=== PATIENT | female | born 1985 | race African-American/Black ===

== ENCOUNTER 2022-08-04 20:50 | Inpatient (IN) ==
--- NOTE | 2022-08-04 21:08 | Emergency Department Note ---
Impression & Plan Sickle cell pain crisis, Anemia ED Provider Note NAME: JEFF HODGE AGE: 37 SEX: F : 1985 ARRIVES VIA: Walk-In INFORMANT: Patient, ED PROVIDER(S): Yifan Haas MD CHIEF COMPLAINT: Chest pain, hemoptysis MEDICAL DECISION MAKING: Patient presents due to concern for chest pain and hemoptysis in the setting of known sickle cell disease. Patient did have blood work completed and IV was established patient was ordered IV Dilaudid and Benadryl. CT of the chest without contrast was ordered as the patient does have contrast allergy. CT of the chest shows that the patient does have mild postinflammaotry/post infectious tree in bud changes but no consolidation per stat rad. The patient is afebrile here. The patient did receive IV fluids. EKG with no obvious concerning findings. The patient's blood work shows a normal white count hemoglobin 11.4 mild anemia and normal platelet count. Kidney function with prerenal azotemia mild hyponatremia 135 other LFTs are unremarkable. Patient was reassessed and was still having pain so she was ordered an additional 1.5 mg of Dilaudid and IV Toradol 10 mg. Patient reportedly does not tolerate NSAIDs well. This was not given. Upon subsequent reassessment the patient was still having pain and states that she typically gets 3 doses for her sickle cell pain crises. Patient was ordered 2 mg IV Dilaudid. The patient does have reticulocyte count. The patient's kidney function is unremarkable. Troponin not elevated. Believe acute chest syndrome to be less likely as the patient is not hypoxic febrile and mildly patient does have inflammatory changes seen on her CT there is no evidence of obvious pneumonia. Given the patient's pain medication needs I did discuss admission versus close outpatient follow-up and treatment. Patient did not have improvement in the pain and given that the patient has required multiple rounds of pain medication I did speak with the on-call hospitalist service and patient was admitted by Dr. Becerril Prior /Outside records reviewed: None Differential diagnosis: Cardiac ischemia, aortic dissection, pulmonary embolism, pneumothorax, pneumonia, pericarditis, myocarditis, esophageal rupture, GERD, cholecystitis, pancreatitis, musculoskeletal, as well as other pathologies. Diagnostics, as interpreted by me: ECG: Sinus tachycardia, rate of 110, normal intervals normal axis no ST elevations or T WI. No significant change for comparison July 31, 2022 Cardiac monitoring: An order was placed for continuous cardiac monitoring. The monitor shows a rate of 105 with tachycardic and regular rhythm. Patient was placed on pulse oximetry Medical decision rules: None Imaging studies: See below HPI: Patient presents due to concern for chest pain with associated cough and hemoptysis. Patient states that she does have a prior history of acute chest syndrome. Patient has felt warm but is not taken her temperature at home. Patient is a non-smoker. The patient is hydroxyurea and folic acid does take oxycodone but has not had improvement in symptoms. The patient does complain of chest pain as well as overall body aches and bony pain. She does state this is consistent with sickle cell pain crises. The patient is concerned of the possibility of acute chest. Patient denies any nausea vomiting or diarrhea. No falls or trauma. The patient is currently visiting from the [facility]. PAST MEDICAL HISTORY: See Below PAST SURGICAL HISTORY: See Below SOCIAL HISTORY: See Below HOME MEDICATIONS: See Below ALLERGIES: See Below VITALS: See Below PHYSICAL EXAMINATION: GENERAL: NAD, wearing a mask, non-toxic. EYE EXAM: Normal conjunctiva. PERRL, no anisocoria and EOM's grossly intact w/o pain. NECK: Supple, no nuchal rigidity, no adenopathy, non-tender. No signs of meningismus. FROM of the neck with good chin to chest and neck extension. No stridor. LUNGS: Clear to auscultation. Normal chest wall mechanics. HEART: Tachycardic and regular, no MRG. ABDOMEN: Abdomen soft, non-tender, normo-active bowel sounds, no masses, no rebound or guarding. BACK: No CVA TTP. SKIN: No rashes and no bruising. UPPER EXTREMITIES: Upper extremities are grossly normal. LOWER EXTREMITIES: Grossly normal, no edema. Negative Homans' sign bilaterally. NEURO EXAM: A&O x3, cranial nerves II-XII grossly intact, normal speech, moves all 4 extremities. 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 [employer] Required: No Beliefs That Will Affect Care: None Current Living Situation: Significant Other Current Living Situation Comment: Apartment with fiance and 2 kids Feels Safe at Home: Yes Safety Concerns: Feels Safe At This Time Assistive Devices: None Allergies Allergies Allergy/AdvReac Type Severity Reaction Status Date / Time gadoversetamide Allergy Severe Anaphylaxis Verified 08/05/22 02:25 Iodinated Contrast Media Allergy Severe Anaphylaxis Verified 08/05/22 02:25 shellfish derived Allergy Severe Anaphylaxis Verified 08/05/22 02:22 ketorolac [From Toradol] Allergy Hives Verified 08/05/22 02:22 NSAIDS (Non-Steroidal Allergy Hives Verified 08/05/22 02:22 Anti-Inflamma Home Meds Home Medications Medication Instructions Recorded Confirmed Hormone Injections 1 dose INJ .[id number] 08/05/22 08/05/22 bictegravir 50 mg-emtricitabine 1 tab PO DAILY 08/05/22 08/05/22 200 mg-tenofovir alafenam 25 mg tablet (Biktarvy) folic acid 1 mg tablet 5 mg PO DAILY 08/05/22 08/05/22 hydroxyurea 500 mg capsule 500 mg PO BID 08/05/22 08/05/22 oxycodone 20 mg tablet,crush 20 mg PO Q12H PRN Pain 08/05/22 08/05/22 resistant,extended release 12 hr (OxyContin) oxycodone 5 mg tablet 5 mg PO Q4H PRN Pain 08/05/22 08/05/22 spironolactone 100 mg tablet 100 mg PO BID 08/05/22 08/05/22 Results & Data (ED) Vital Signs Vital Signs - 24 hr 08/04/22 20:52 08/04/22 21:08 08/04/22 21:15 Temperature 36.6 C Temperature Source Temporal Artery Scan Pulse Rate 120 H 113 H 112 H Pulse Rhythm Respiratory Rate 16 23 19 Blood Pressure 151/98 H Blood Pressure Mean 115 Pulse Oximetry 98 99 99 Oxygen Delivery Method Room Air Room Air Room Air Sepsis Recent Fever Within 48 Hours No Sepsis New/Unexplained Change in Mental Status No Sepsis Action Taken by Nursing No Action Required 08/04/22 21:30 08/04/22 21:15 08/04/22 21:15 Temperature Temperature Source Pulse Rate 110 H 112 H Pulse Rhythm Regular Respiratory Rate 18 20 Blood Pressure Blood Pressure Mean Pulse Oximetry 99 99 99 Oxygen Delivery Method Room Air Room Air Room Air Sepsis Recent Fever Within 48 Hours Sepsis New/Unexplained Change in Mental Status Sepsis Action Taken by Nursing 08/04/22 21:46 08/04/22 22:00 08/04/22 22:15 Temperature Temperature Source Pulse Rate 113 H 112 H 110 H Pulse Rhythm Respiratory Rate 20 18 20 Blood Pressure Blood Pressure Mean Pulse Oximetry Oxygen Delivery Method Sepsis Recent Fever Within 48 Hours Sepsis New/Unexplained Change in Mental Status Sepsis Action Taken by Nursing 08/04/22 21:35 08/04/22 22:30 08/04/22 23:00 Temperature Temperature Source Pulse Rate 109 H 117 H 106 H Pulse Rhythm Respiratory Rate 17 Blood Pressure Blood Pressure Mean Pulse Oximetry Oxygen Delivery Method Sepsis Recent Fever Within 48 Hours Sepsis New/Unexplained Change in Mental Status Sepsis Action Taken by Nursing 08/04/22 23:30 08/04/22 23:41 08/05/22 00:00 Temperature Temperature Source Pulse Rate 107 H 112 H 115 H Pulse Rhythm Respiratory Rate 19 18 21 Blood Pressure 171/105 H Blood Pressure Mean 127 Pulse Oximetry 96 Oxygen Delivery Method Room Air Sepsis Recent Fever Within 48 Hours Sepsis New/Unexplained Change in Mental Status Sepsis Action Taken by Nursing 08/05/22 00:30 08/05/22 01:12 08/05/22 01:30 Temperature Temperature Source Pulse Rate 120 H 122 H 117 H Pulse Rhythm Respiratory Rate 15 22 22 Blood Pressure Blood Pressure Mean Pulse Oximetry 95 97 Oxygen Delivery Method Room Air Room Air Sepsis Recent Fever Within 48 Hours Sepsis New/Unexplained Change in Mental Status Sepsis Action Taken by [facility] Medications Current Medication List: was personally reviewed by me Laboratory Data Attestation: I reviewed the patient's lab results. 08/04/22 22:35 08/04/22 22:35 Lab Results 08/04/22 08/04/22 08/04/22 Range/Units 22:35 22:35 22:35 WBC 5.49 (4.8-10.8) K/ul RBC 3.75 L (4.20-5.40) M/uL Hgb 11.4 L (12.0-16.0) g/dl Hct 34.5 L (37.0-47.0) % MCV 92.0 (80.0-100.0) fL MCH 30.4 (25.0-34.0) pg MCHC 33.0 (32.0-36.0) g/dL RDW Std Deviation 62.0 H (36.4-46.3) fL RDW Coeff of López 18.4 H (11.5-14.5) % Plt Count 285 (130-400) K/uL MPV 8.9 L (9.4-12.4) fL Immature Gran % (Auto) 6.7 % Neut % (Auto) 58.6 % Lymph % (Auto) 30.1 % Schuyler % (Auto) 3.5 % Eos % (Auto) 0.7 % Baso % (Auto) 0.4 % Reticulocyte % (Auto) 2.3 H (0.5-2.0) % Neut # (Auto) 3.22 (1.40-6.50) K/uL Lymph # (Auto) 1.65 (1.2-3.4) K/uL Schuyler # (Auto) 0.19 (0.11-0.59) K/uL Eos # (Auto) 0.04 (0-0.50) K/uL Baso # (Auto) 0.02 (0-0.2) K/uL Reticulocyte # 0.09 (0.02-0.10) 10^6/uL Immature Gran # (Auto) 0.37 H (0.01-0.20) K/uL PT 9.9 (9.0-12.0) Seconds INR 0.9 (0.9-1.1) APTT 28.6 (21.0-31.0) Seconds PTT Ratio 1.0 Sodium 135 L (136-145) mmol/L Potassium 4.7 (3.5-5.1) mmol/L Chloride 106 (98-107) mmol/L Carbon Dioxide 25 (21-32) mmol/L Anion Gap 4 (3-11) BUN 21 (6-23) mg/dl Creatinine 0.84 (0.6-1.2) mg/dl Est Cr Clr Drug Dosing 138.6 ml/min Est GFR ( Amer) 102.9 ml/min Est GFR (Non-Af Amer) 88.8 ml/min BUN/Creatinine Ratio 25.0 H (10-20) Glucose 144 H (70-99(Fasting)) mg/dl Estimat Average Glucose mg/dl Hemoglobin A1c (4.5-5.6) % Calcium 9.7 (8.5-10.1) mg/dl Magnesium 1.8 (1.7-2.4) mg/dl Iron (35-150) mcg/dl Transferrin (200-360) mg/dl Ferritin (8-388) ng/ml Total Bilirubin 0.3 (0.2-1.0) mg/dl AST 20 (13-39) U/L ALT 17 (7-52) U/L Alkaline Phosphatase 90 (34-104) U/L Troponin I High Sens 4.2 (0-14) pg/ml Total Protein 7.8 (6.0-8.3) gm/dl Albumin 4.2 (3.4-5.0) gm/dl Globulin 3.6 (2.5-4.0) gm/dl Albumin/Globulin Ratio 1.2 (0.9-2) Vitamin B12 (180-914) pg/ml Folate (>5.38) ng/ml SARS-CoV-2, RNA, NAAT (NEGATIVE) 08/04/22 08/04/22 08/04/22 Range/Units 22:35 22:35 22:49 WBC (4.8-10.8) K/ul RBC (4.20-5.40) M/uL Hgb (12.0-16.0) g/dl Hct (37.0-47.0) % MCV (80.0-100.0) fL MCH (25.0-34.0) pg MCHC (32.0-36.0) g/dL RDW Std Deviation (36.4-46.3) fL RDW Coeff of López (11.5-14.5) % Plt Count (130-400) K/uL MPV (9.4-12.4) fL Immature Gran % (Auto) % Neut % (Auto) % Lymph % (Auto) % Schuyler % (Auto) % Eos % (Auto) % Baso % (Auto) % Reticulocyte % (Auto) (0.5-2.0) % Neut # (Auto) (1.40-6.50) K/uL Lymph # (Auto) (1.2-3.4) K/uL Schuyler # (Auto) (0.11-0.59) K/uL Eos # (Auto) (0-0.50) K/uL Baso # (Auto) (0-0.2) K/uL Reticulocyte # (0.02-0.10) 10^6/uL Immature Gran # (Auto) (0.01-0.20) K/uL PT (9.0-12.0) Seconds INR (0.9-1.1) APTT (21.0-31.0) Seconds PTT Ratio Sodium (136-145) mmol/L Potassium (3.5-5.1) mmol/L Chloride (98-107) mmol/L Carbon Dioxide (21-32) mmol/L Anion Gap (3-11) BUN (6-23) mg/dl Creatinine (0.6-1.2) mg/dl Est Cr Clr Drug Dosing ml/min Est GFR ( Amer) ml/min Est GFR (Non-Af Amer) ml/min BUN/Creatinine Ratio (10-20) Glucose (70-99(Fasting)) mg/dl Estimat Average Glucose 100 mg/dl Hemoglobin A1c 5.1 (4.5-5.6) % Calcium (8.5-10.1) mg/dl Magnesium (1.7-2.4) mg/dl Iron 48 (35-150) mcg/dl Transferrin 238 (200-360) mg/dl Ferritin 125.9 (8-388) ng/ml Total Bilirubin (0.2-1.0) mg/dl AST (13-39) U/L ALT (7-52) U/L Alkaline Phosphatase (34-104) U/L Troponin I High Sens (0-14) pg/ml Total Protein (6.0-8.3) gm/dl Albumin (3.4-5.0) gm/dl Globulin (2.5-4.0) gm/dl Albumin/Globulin Ratio (0.9-2) Vitamin B12 457 (180-914) pg/ml Folate 11.55 (>5.38) ng/ml SARS-CoV-2, RNA, NAAT (NEGATIVE) 08/05/22 Range/Units 00:47 WBC (4.8-10.8) K/ul RBC (4.20-5.40) M/uL Hgb (12.0-16.0) g/dl Hct (37.0-47.0) % MCV (80.0-100.0) fL MCH (25.0-34.0) pg MCHC (32.0-36.0) g/dL RDW Std Deviation (36.4-46.3) fL RDW Coeff of López (11.5-14.5) % Plt Count (130-400) K/uL MPV (9.4-12.4) fL Immature Gran % (Auto) % Neut % (Auto) % Lymph % (Auto) % Schuyler % (Auto) % Eos % (Auto) % Baso % (Auto) % Reticulocyte % (Auto) (0.5-2.0) % Neut # (Auto) (1.40-6.50) K/uL Lymph # (Auto) (1.2-3.4) K/uL Schuyler # (Auto) (0.11-0.59) K/uL Eos # (Auto) (0-0.50) K/uL Baso # (Auto) (0-0.2) K/uL Reticulocyte # (0.02-0.10) 10^6/uL Immature Gran # (Auto) (0.01-0.20) K/uL PT (9.0-12.0) Seconds INR (0.9-1.1) APTT (21.0-31.0) Seconds PTT Ratio Sodium (136-145) mmol/L Potassium (3.5-5.1) mmol/L Chloride (98-107) mmol/L Carbon Dioxide (21-32) mmol/L Anion Gap (3-11) BUN (6-23) mg/dl Creatinine (0.6-1.2) mg/dl Est Cr Clr Drug Dosing ml/min Est GFR ( Amer) ml/min Est GFR (Non-Af Amer) ml/min BUN/Creatinine Ratio (10-20) Glucose (70-99(Fasting)) mg/dl Estimat Average Glucose mg/dl Hemoglobin A1c (4.5-5.6) % Calcium (8.5-10.1) mg/dl Magnesium (1.7-2.4) mg/dl Iron (35-150) mcg/dl Transferrin (200-360) mg/dl Ferritin (8-388) ng/ml Total Bilirubin (0.2-1.0) mg/dl AST (13-39) U/L ALT (7-52) U/L Alkaline Phosphatase (34-104) U/L Troponin I High Sens (0-14) pg/ml Total Protein (6.0-8.3) gm/dl Albumin (3.4-5.0) gm/dl Globulin (2.5-4.0) gm/dl Albumin/Globulin Ratio (0.9-2) Vitamin B12 (180-914) pg/ml Folate (>5.38) ng/ml SARS-CoV-2, RNA, NAAT NEGATIVE (NEGATIVE) Administered Medications Benzonatate (Benzonatate 100 Mg Capsule) 100 mg PO TID PRN PRN Reason: Cough Stop: 09/04/22 02:02 Last Admin: 08/05/22 03:25 Dose: 100 mg Documented By: ANNIKA Dicyclomine HCl (Dicyclomine Hcl 10 Mg Cap) 10 mg PO AC [facility] Stop: 09/04/22 11:29 Last Admin: 08/05/22 16:53 Dose: 10 mg Documented By: Admin: 08/05/22 12:51 Dose: 10 mg Documented By: PATRICK Diphenhydramine HCl (Diphenhydramine 50 Mg/Ml Vial) 50 mg IV Q6H PRN PRN Reason: Itching Stop: 09/04/22 03:34 Last Admin: 08/05/22 14:57 Dose: 50 mg Documented By: Admin: 08/05/22 09:13 Dose: 50 mg Documented By: Admin: 08/05/22 04:07 Dose: 50 mg Documented By: ANNIKA Folic Acid (Folic Acid 1 Mg Tab) 5 mg PO DAILY [facility] Stop: 09/04/22 08:59 Last Admin: 08/05/22 07:59 Dose: 5 mg Documented By: PATRICK Hydromorphone HCl (Hydromorphone Inj 1 Mg/Ml Syringe) 1 mg IV Q3H PRN PRN Reason: Pain Stop: 08/19/22 02:02 Last Admin: 08/05/22 09:14 Dose: 1 mg Documented By: Admin: 08/05/22 06:28 Dose: 1 mg Documented By: Admin: 08/05/22 03:17 Dose: 1 mg Documented By: ANNIKA Hydromorphone HCl (Hydromorphone Aerodynamics Professor 30 Mg/30 Ml) 30 mg IV PRN PRN; Protocol PRN Reason: MUSHROOM CUTTER Pain Titration Stop: 08/19/22 09:59 Last Admin: 08/05/22 11:59 Dose: 30 mg Documented By: PATRICK Co-signed By: KIM Hydroxyurea (Hydroxyurea 500 Mg Cap) 500 mg PO BID EVAN Stop: 09/04/22 08:59 Last Admin: 08/05/22 07:59 Dose: 500 mg Documented By: PATRICK Co-signed By: HUSSAIN Parenteral Electrolytes (Normosol-R) 1,000 mls @ 125 mls/hr IV .Q8H EVAN Stop: 08/06/22 07:44 Last Admin: 08/05/22 14:57 Dose: 125 mls/hr Documented By: Infusion: 08/05/22 14:57 Dose: 125 mls/hr Documented By: Admin: 08/05/22 07:57 Dose: 125 mls/hr Documented By: PATRICK Sodium Chloride (Nss 1000ml) 1,000 mls @ 15 mls/hr IV .Q24H EVAN Stop: 08/19/22 10:02 Last Admin: 08/05/22 12:01 Dose: 15 mls/hr Documented By: PATRICK Heparin Sodium/Dextrose (Heparin Sodium/Dextrose) 25,000 units in 500 mls @ 35 mls/hr IV .[id number] EVAN; Protocol Stop: 09/04/22 10:59 Last Admin: 08/05/22 11:57 Dose: 1,750 units/hr, 35 mls/hr Documented By: PATRICK Co-signed By: KIM Beard (Icu Protocol For Hyperglycemia) 1 each N/A ACHS EVAN Stop: 08/07/22 07:29 Last Admin: 08/05/22 07:58 Dose: 1 each Documented By: PATRICK Oxycodone HCl (Oxycodone Hcl Ir 5 Mg Tab (Immediate Release)) 5 - 10 mg PO QID PRN PRN Reason: Pain Stop: 08/19/22 02:02 Last Admin: 08/05/22 08:02 Dose: 10 mg Documented By: PATRICK Discontinued Medications Clonidine HCl (Clonidine Hcl 0.1 Mg Tab) 0.1 mg PO NOW ONE Stop: 08/05/22 00:54 Last Admin: 08/05/22 02:49 Dose: 0.1 mg Documented By: ALEJANDRO Diphenhydramine HCl (Diphenhydramine 50 Mg/Ml Vial) 25 mg IV NOW STA Stop: 08/04/22 21:16 Last Admin: 08/04/22 22:32 Dose: 25 mg Documented By: ALEJANDRO Diphenhydramine HCl (Diphenhydramine 50 Mg/Ml Vial) 25 mg IV NOW STA Stop: 08/05/22 00:40 Last Admin: 08/05/22 00:48 Dose: 25 mg Documented By: ALEJANDRO Enoxaparin Sodium (Enoxaparin 150 Mg/Ml Syr) 135 mg SQ Q12H EVAN Stop: 09/04/22 07:29 Last Admin: 08/05/22 08:14 Dose: Not Given Documented By: PATRICK Heparin Sodium (Porcine) (Heparin Sod (Porcine) 1000 Unit/Ml) 8,000 units IV NOW ONE Stop: 08/05/22 11:31 Last Admin: 08/05/22 11:57 Dose: 8,000 units Documented By: PATRICK Co-signed By: KIM Heparin Sodium/Dextrose (Heparin 68928 Unit/500 Ml D5w) Confirm Administered Dose 25,000 units IV .STK-MED ONE Stop: 08/05/22 11:11 Last Admin: 08/05/22 12:01 Dose: Not Given Documented By: PATRICK Hydromorphone HCl (Hydromorphone Inj 0.5 Mg/0.5 Ml Syr) 1 mg IV NOW STA Stop: 08/04/22 21:16 Last Admin: 08/04/22 22:32 Dose: 1 mg Documented By: ALEJANDRO Hydromorphone HCl (Hydromorphone Inj 1 Mg/Ml Syringe) 1.5 mg IV NOW STA Stop: 08/04/22 23:23 Last Admin: 08/04/22 23:32 Dose: 1.5 mg Documented By: ALEJANDRO Hydromorphone HCl (Hydromorphone Inj 2 Mg/Ml Syr/Vial) 2 mg IV NOW STA Stop: 08/05/22 00:04 Last Admin: 08/05/22 00:15 Dose: 2 mg Documented By: ALEJANDRO Hydromorphone HCl (Hydromorphone Inj 0.5 Mg/0.5 Ml Syr) 0.5 mg IV NOW STA Stop: 08/05/22 05:03 Last Admin: 08/05/22 05:26 Dose: 0.5 mg Documented By: ANNIKA Hydromorphone HCl (Hydromorphone Bolus From Aerodynamics Professor) 2 mg IV ONE STA Stop: 08/05/22 10:01 Last Admin: 08/05/22 12:01 Dose: 2 mg Documented By: PATRICK Co-signed By: KIM Sodium Chloride (Nss 1000ml) 1,000 mls @ 999 mls/hr IV .Q1H1M STA Stop: 08/04/22 22:15 Last Infusion: 08/05/22 05:45 Dose: 0 mls/hr Documented By: Admin: 08/04/22 22:34 Dose: 999 mls/hr Documented By: ALEJANDRO Methylprednisolone 20 mg/ (Syringe) 0.32 mls @ 1.5 mls/min IV NOW STA Stop: 08/05/22 01:50 Last Admin: 08/05/22 04:48 Dose: 1.5 mls/min Documented By: ANNIKA Ceftriaxone Sodium (Rocephin) 2,000 mg in 70 mls @ 140 mls/hr IV NOW STA Stop: 08/05/22 02:20 Last Infusion: 08/05/22 08:42 Dose: 0 mls/hr Documented By: Admin: 08/05/22 07:58 Dose: 140 mls/hr Documented By: PATRICK Doxycycline Hyclate 100 mg/ (Dextrose) 110 mls @ 50 mls/hr IV NOW STA Stop: 08/05/22 04:02 Last Infusion: 08/05/22 07:07 Dose: 0 mls/hr Documented By: Admin: 08/05/22 04:51 Dose: 50 mls/hr Documented By: ANNIKA Magnesium Sulfate/Dextrose (Magnesium Sulfate / D5w) 1 gm in 100 mls @ 50 mls/hr IV ONE ONE Stop: 08/05/22 03:55 Last Infusion: 08/05/22 08:22 Dose: 0 mls/hr Documented By: Admin: 08/05/22 06:09 Dose: 50 mls/hr Documented By: PAULINO Sodium Chloride (Nss 1000ml) 1,000 mls @ 60 mls/hr IV .[id number] ONE Stop: 08/05/22 18:44 Last Admin: 08/05/22 06:08 Dose: 60 mls/hr Documented By: PAULINO Ketorolac Tromethamine (Ketorolac Tromethamine 15 Mg/Ml Vial) 10 mg IV NOW ONE Stop: 08/04/22 23:23 Last Admin: 08/05/22 00:08 Dose: Not Given Documented By: ALEJANDRO Loratadine (Loratadine 10 Mg Tab) 10 mg PO NOW ONE Stop: 08/05/22 01:50 Last Admin: 08/05/22 06:09 Dose: 10 mg Documented By: PAULINO Imaging Data Radiologist's Impression: Chest CT 08/04/22 21:15 CT chest diagnostic wo con CLINICAL HISTORY: h/o of sickle cell TECHNIQUE: Multidetector row helical CT of the chest was performed. Coronal and sagittal reformations were obtained. Automated dose lowering techniques and/or adjustment according to patient size were utilized for this exam. CT DOSE: 758.13 mGy.cm Comparison: Comparison is made to chest radiograph 07/11/2022 FINDINGS: Lungs and pleura: Bilateral tree in bud nodules are seen. No suspicious pulmonary nodules are seen. Heart and pericardium: Heart size is normal. No pericardial effusion. Vessels: Unremarkable. Mediastinum and shayy: Subcentimeter lymph nodes are seen. Chest wall and lower neck: Bilateral subpectoral breast implants are noted. Abdomen: Unremarkable. Bones: Unremarkable. IMPRESSION: Bilateral tree in bud nodules are seen which likely represent infectious/inflam matory changes. If there is clinical concern, 3 month follow up study can be performed to ensure resolution. No bony lesions are seen in this patient with history of sickle cell. ACT 112: Negative or not required by law. Electronically signed by: Dilshad Sanchez M.D. 08/05/2022 7:32 AM Discharge Plan Visit Data Chief Complaint: Shortness of Breath/Dyspnea Stated Complaint: FEVER,COUGH,SOB ED Provider: Yifan Haas Discharge Problem: Sickle cell pain crisis, Anemia Patient Disposition: Admitted As Inpatient Discharge Instructions Interventions: ED Discharge Assessment Last Done: 08/05/22 02:45
[2022-08-04] MEDS ORDERED: diphenhydrAMINE 50 MG/ML VIAL IV STA (21:15)
[2022-08-04] MEDS ORDERED: HYDROmorphone INJ 0.5 MG/0.5 ML SYR IV STA (21:15)
[2022-08-04] MEDS ORDERED: SODIUM CHLORIDE 0.9% 1000ML 1,000 ML IV STA (21:15)
[2022-08-04 23:22] LABS: Hematocrit (blood only) 34.5 % (37.0-47.0); Hemoglobin 11.4 g/dl (12.0-16.0); Mean Corpuscular Hemoglobin 30.4 pg (25.0-34.0); Mean Platelet Volume 8.9 fL (9.4-12.4); Platelet Count 285 K/uL (130-400); RDW Coefficient of Variation 18.4 % (11.5-14.5); Red Blood Count 3.75 M/uL (4.20-5.40); Reticulocyte % 2.3 % (0.5-2.0); Reticulocytes # 0.09 10^6/uL (0.02-0.10); White Blood Count 5.49 K/ul (4.8-10.8)
[2022-08-04] MEDS ORDERED: HYDROmorphone INJ 1 MG/ML SYRINGE IV STA (23:22)
[2022-08-04] MEDS ORDERED: KETOROLAC TROMETHAMINE 15 MG/ML VIAL IV ONE (23:22)
[2022-08-04 23:36] LABS: Albumin Globulin Ratio 1.2 (0.9-2); Albumin Level 4.2 gm/dl (3.4-5.0); Bilirubin,Total 0.3 mg/dl (0.2-1.0); Calcium 9.7 mg/dl (8.5-10.1); Creatinine Clr Calc Pharmacy 138.6 ml/min; Est GFR (African American) 102.9 ml/min; Est GFR (Non-African American) 88.8 ml/min; Globulin 3.6 gm/dl (2.5-4.0); Potassium 4.7 mmol/L (3.5-5.1); Total Protein 7.8 gm/dl (6.0-8.3)
[2022-08-04 23:44] LABS: Troponin I High Sensitivity 4.2 pg/ml (0-14)
[2022-08-04 23:51] LABS: INR 0.9 (0.9-1.1); Partial Thromboplastin Time 28.6 Seconds (21.0-31.0); Prothrombin Time 9.9 Seconds (9.0-12.0)
[2022-08-05] LABS: Basophils # (auto) 0.02 K/uL (0-0.2); Basophils % (auto) 0.4 %; Eosinophils # (auto) 0.04 K/uL (0-0.50); Eosinophils % (auto) 0.7 %; Immature Granulocytes # (auto) 0.37 K/uL (0.01-0.20); Immature Granulocytes % (auto) 6.7 %; Lymphocytes # (auto) 1.65 K/uL (1.2-3.4); Lymphocytes % (auto) 30.1 %; Monocytes # (auto) 0.19 K/uL (0.11-0.59); Monocytes % (auto) 3.5 %; Neutrophils # (auto) 3.22 K/uL (1.40-6.50); Neutrophils % (auto) 58.6 %
[2022-08-05] MEDS ORDERED: HYDROmorphone INJ 2 MG/ML SYR/VIAL IV STA (00:03)
[2022-08-05] MEDS ORDERED: diphenhydrAMINE 50 MG/ML VIAL IV STA (00:39)
[2022-08-05] MEDS ORDERED: cloNIDine HCL 0.1 MG TAB PO ONE (00:53)
--- NOTE | 2022-08-05 00:57 | History & Physical Report ---
Date of Service August 05, 2022 Assessment & Plan (1) Chest pain: Plan: Possible acute chest syndrome Given new x-ray infiltrate, chest pain in a patient with sickle cell disease. Patient currently nontoxic/nonseptic. Situational hypertension secondary to illness, sickle cell crisis Acute on chronic anemia Hemoglobin drop from baseline Multifactorial : Hemoptysis, painless LGIB hypercoagulable state (factor V Leiden deficiency plus history of PE/DVT history NOAC failure) Patient not compliant with Lovenox recommendation from bleach boiler puller due to abdominal bruising. 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 Guzman.) She recommends transfer to tertiary care center ICU for possible need for exchange transfusion which is not available at [facility]. Patient adamantly refuses transfer. Patient counseled regarding possible complications of not heeding specialist advice which might include as an extreme circumstance. ICU monitoring Analgesia IVF, hold diuretic for now until patient euvolemic CS, Ceftriaxone, Doxycycline Solu-Medrol 1 dose for hemoptysis, antitussives as needed Hematology consult Re: Sickle cell crisis, possible acute chest syndrome Continue current Hydrea dose as per bleach boiler puller. Clonidine now for hypertensive urgency GI consult Re: L GIB Check hemoglobin A1c Check CD4, HIV RNA levels Obtain outpatient PCP/Hematology records. (Need to corroborate some patient info details. Patient somewhat struggling to provide her medical information during encounter.) DVT prophylaxis. SCDs, Re: Hemoptysis, LGIB Resume weight-based Lovenox anticoagulation if hemoglobin stable and bleeding re solved. Full code Text document was generated using [employer] voice recognition software. It may contain grammatical or spelling errors. Kindly contact undersigned for clarification of any documentation item in question. History of Present Illness Chief Complaint: Worsening cough, shortness of breath, sickle cell crisis Primary Care Provider: [facility] History obtained from patient and records. 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 Patient is a resident of [place], [place] who has been town the last couple of weeks because of a in the family. 10 days ago, patient noted congestion, cough symptoms productive of clear sputum. Without any chest pain or shortness of breath. Possible sick contacts in the family. Patient has completed COVID-19 vaccination. Intermittent hematochezia without abdominal pain. Patient has not been able to comply with weight-based Lovenox injections recommended by bleach boiler puller for hypercoagulable state the last few months due to abdominal bruising. Plan was for patient to start Coumadin once patient receives her home INR machine. Patient evaluated at [facility] ER 5 days ago. Symptoms attributed to bronchitis and sickle cell flare. Chest x-ray was clear. Patient discharged home. Worsening cough symptoms productive of junky sputum with blood streaks last few days. Chest pain from coughing, increasing shortness of breath. No unusual leg pain. Patient feeling achy all over similar to sickle cell crisis. Last attack was years ago as per patient. Patient returned to ER. 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 Allergies Allergy/AdvReac Type Severity Reaction Status Date / Time gadoversetamide Allergy Severe Anaphylaxis Verified 08/05/22 02:25 Iodinated Contrast Media Allergy Severe Anaphylaxis Verified 08/05/22 02:25 shellfish derived Allergy Severe Anaphylaxis Verified 08/05/22 02:22 ketorolac [From Toradol] Allergy Hives Verified 08/05/22 02:22 NSAIDS (Non-Steroidal Allergy Hives Verified 08/05/22 02:22 Anti-Inflamma Home Medications Medication Instructions Recorded Confirmed Type Hormone Injections 1 dose INJ .[id number] 08/05/22 08/05/22 History bictegravir 50 mg-emtricitabine 1 tab PO DAILY 08/05/22 08/05/22 History 200 mg-tenofovir alafenam 25 mg tablet (Biktarvy) folic acid 1 mg tablet 5 mg PO DAILY 08/05/22 08/05/22 History hydroxyurea 500 mg capsule 500 mg PO BID 08/05/22 08/05/22 History oxycodone 20 mg tablet,crush 20 mg PO Q12H PRN Pain 08/05/22 08/05/22 History resistant,extended release 12 hr (OxyContin) oxycodone 5 mg tablet 5 mg PO Q4H PRN Pain 08/05/22 08/05/22 History spironolactone 100 mg tablet 100 mg PO BID 08/05/22 08/05/22 History Past Med/Surg History Medical History Factor V Leiden History of pulmonary embolism Sickle cell disease Social History Smoking Status: Never smoker Hx Alcohol Use: Yes Alcohol type: wine Hx Substance Use: No Preferred Language: Romansh Communication Ability: Effective Nursing Educator Required: No Beliefs That Will Affect Care: None Current Living Situation: Significant Other Current Living Situation Comment: Apartment with fiance and 2 kids Feels Safe at Home: Yes Safety Concerns: Feels Safe At This Time Assistive Devices: None Review of Systems Review of Systems: As per HPI, all other systems reviewed and negative Physical Exam Physical Exam: GENERAL: uncomfortable, pleasant, obese, no respiratory distress SKIN: Pallor, warm HEENT: Pale palpebral conjunctivae, no ptosis, dry buccal mucosa NECK : Supple, no tenderness CHEST : CTA, no tenderness HEART : Tachycardic, no obvious murmurs ABDOMEN: Some distention, nontender EXTREMITIES : No LE swelling/tenderness, no other conspicuous deformities noted NEUROLOGIC : Coherent, no facial asymmetry, no other gross focality Results & Data Results & Data ([facility]) Vital Signs (Past 12 Hours) Vital Signs Temp Pulse Resp BP Pulse Ox O2 Del Method 08/05/22 00:30 120 H 15 95 Room Air 08/05/22 00:00 115 H 21 08/04/22 23:41 112 H 18 171/105 H 96 Room Air 08/04/22 23:30 107 H 19 08/04/22 23:00 106 H 17 08/04/22 22:30 117 H 08/04/22 21:35 109 H 08/04/22 22:15 110 H 20 08/04/22 22:00 112 H 18 08/04/22 21:46 113 H 20 08/04/22 21:15 99 Room Air 08/04/22 21:15 112 H 20 99 Room Air 08/04/22 21:30 110 H 18 99 Room Air 08/04/22 21:15 112 H 19 99 Room Air 08/04/22 21:08 113 H 23 99 Room Air 08/04/22 20:52 36.6 C 120 H 16 151/98 H 98 Room Air Laboratory Results Laboratory Results WBC 5.49 K/ul (4.8-10.8) 08/04/22 22:35 RBC 3.75 M/uL (4.20-5.40) L 08/04/22 22:35 Hgb 11.4 g/dl (12.0-16.0) L 08/04/22 22:35 Hct 34.5 % (37.0-47.0) L 08/04/22 22:35 MCV 92.0 fL (80.0-100.0) 08/04/22 22:35 MCH 30.4 pg (25.0-34.0) 08/04/22 22:35 MCHC 33.0 g/dL (32.0-36.0) 08/04/22 22:35 RDW Std Deviation 62.0 fL (36.4-46.3) H 08/04/22 22:35 RDW Coeff of López 18.4 % (11.5-14.5) H 08/04/22 22:35 Plt Count 285 K/uL (130-400) 08/04/22 22:35 MPV 8.9 fL (9.4-12.4) L 08/04/22 22:35 Immature Gran % (Auto) 6.7 % 08/04/22 22:35 Neut % (Auto) 58.6 % 08/04/22 22:35 Lymph % (Auto) 30.1 % 08/04/22 22:35 [place] % (Auto) 3.5 % 08/04/22 22:35 Eos % (Auto) 0.7 % 08/04/22 22:35 Baso % (Auto) 0.4 % 08/04/22 22:35 Reticulocyte % (Auto) 2.3 % (0.5-2.0) H 08/04/22 22:35 Neut # (Auto) 3.22 K/uL (1.40-6.50) 08/04/22 22:35 Lymph # (Auto) 1.65 K/uL (1.2-3.4) 08/04/22 22:35 [place] # (Auto) 0.19 K/uL (0.11-0.59) 08/04/22 22:35 Eos # (Auto) 0.04 K/uL (0-0.50) 08/04/22 22:35 Baso # (Auto) 0.02 K/uL (0-0.2) 08/04/22 22:35 Reticulocyte # 0.09 10^6/uL (0.02-0.10) 08/04/22 22:35 Immature Gran # (Auto) 0.37 K/uL (0.01-0.20) H 08/04/22 22:35 PT 9.9 Seconds (9.0-12.0) 08/04/22 22:35 INR 0.9 (0.9-1.1) 08/04/22 22:35 APTT 28.6 Seconds (21.0-31.0) 08/04/22 22:35 PTT Ratio 1.0 08/04/22 22:35 Sodium 135 mmol/L (136-145) L 08/04/22 22:35 Potassium 4.7 mmol/L (3.5-5.1) 08/04/22 22:35 Chloride 106 mmol/L (98-107) 08/04/22 22:35 Carbon Dioxide 25 mmol/L (21-32) 08/04/22 22:35 Anion Gap 4 (3-11) 08/04/22 22:35 BUN 21 mg/dl (6-23) 08/04/22 22:35 Creatinine 0.84 mg/dl (0.6-1.2) 08/04/22 22:35 Est Cr Clr Drug Dosing 138.6 ml/min 08/04/22 22:35 Est GFR ( Amer) 102.9 ml/min 08/04/22 22:35 Est GFR (Non-Af Amer) 88.8 ml/min 08/04/22 22:35 BUN/Creatinine Ratio 25.0 (10-20) H 08/04/22 22:35 Glucose 144 mg/dl (70-99(Fasting)) H 08/04/22 22:35 Calcium 9.7 mg/dl (8.5-10.1) 08/04/22 22:35 Total Bilirubin 0.3 mg/dl (0.2-1.0) 08/04/22 22:35 AST 20 U/L (13-39) 08/04/22 22:35 ALT 17 U/L (7-52) 08/04/22 22:35 Alkaline Phosphatase 90 U/L (34-104) 08/04/22 22:35 Troponin I High Sens 4.2 pg/ml (0-14) 08/04/22 22:35 Total Protein 7.8 gm/dl (6.0-8.3) 08/04/22 22:35 Albumin 4.2 gm/dl (3.4-5.0) 08/04/22 22:35 Globulin 3.6 gm/dl (2.5-4.0) 08/04/22 22:35 Albumin/Globulin Ratio 1.2 (0.9-2) 08/04/22 22:[address] chest initial read: Nonenlarged mediastinal lymph nodes. Intact bilateral subpectoral breast implants. Mild splenomegaly at 14 cm. Mild postinflammatory tree-in-bud changes seen in left midlung, medial left lower lobe, mild in superior segment of right lower lobe 3-5 mm groundglass opacities are also noted. No lytic or blastic bony lesion. EKG as per my interpretation : Rate 110, sinus tachycardia, normal axis, no ischemia
[2022-08-05 01:19] LABS: Magnesium 1.8 mg/dl (1.7-2.4)
[2022-08-05] MEDS ORDERED: methylPREDNISolone 20 MG in SYRINGE 0 ML IV STA (01:49)
[2022-08-05] MEDS ORDERED: LORATADINE 10 MG TAB PO ONE (01:49)
[2022-08-05] MEDS ORDERED: DOXYCYCLINE HYCLATE 100 MG in DEXTROSE 5% 100 ML IV STA (01:51)
[2022-08-05] MEDS ORDERED: cefTRIAXone SODIUM 2,000 MG/70 ML BAG IV STA (01:51)
[2022-08-05] MEDS ORDERED: MAGNESIUM SULFATE / D5W 1 GM/100 ML BAG IV ONE (01:56)
[2022-08-05] MEDS ORDERED: BENZONATATE 100 MG CAPSULE PO PRN (02:01)
[2022-08-05] MEDS ORDERED: diphenhydrAMINE Capsule 25 MG CAP PO PRN (02:03)
[2022-08-05] MEDS ORDERED: PROMETHAZINE HCL 12.5 MG in SODIUM CHLORIDE 0.9% 50 ML IV PRN (02:03)
[2022-08-05] MEDS ORDERED: SODIUM CHLORIDE 0.9% 1000ML 1,000 ML IV ONE (02:05)
[2022-08-05 02:47] LABS: Ferritin 125.9 ng/ml (8-388)
[2022-08-05] MEDS: HYDROmorphone INJ 1 MG/ML SYRINGE IV PRN ×3 (03:17→09:14)
[2022-08-05] MEDS: BENZONATATE 100 MG CAPSULE PO PRN (03:25)
[2022-08-05] MEDS: diphenhydrAMINE 50 MG/ML VIAL IV PRN ×4 (04:07→21:50)
[2022-08-05] MEDS ORDERED: HYDROmorphone INJ 0.5 MG/0.5 ML SYR IV STA (05:02)
[2022-08-05] MEDS ORDERED: FLUARIX QUADRIVALENT 0.5 ML SYR IM ONE (05:14)
--- NOTE | 2022-08-05 06:38 | Critical Care Consultation ---
Date of Consultation August 05, 2022 Assessment & Plan (1) Chest pain: Impression: 37-year-old sickle cell presents to the ICU with chest pain and infiltrate on CT chest with concern for chest syndrome, refusing transfer to tertiary center. Neuro - [facility] ICU: Negative Cardiac - Sickle cell/chest syndrome?Given CT findings w/ right lower lobe opacity per Stat read, and chest pain along with shortness of breath patient does meet criteria for chest syndrome -Hematology consulted and recommended transfer to tertiary center for capability of exchange transfusion however patient has refused, now transferred to ICU -Troponin negative, lab work within normal limit. EKG unremarkable -Maintain euvolemia -Transfuse for hemoglobin less than 10 -Continue with pain management Dilaudid, oxycodone -Hematology consulted, will follow up recommendation -Continuous monitoring on telemetry Respiratory - HemoptysisCT chest with blood in tree findings on left lung and right lower lobe opacity per stat read notification -Currently maintaining oxygen saturation on room air. -Patient does have history of PEs and is not anticoagulated. Would certainly obtain CTA chest if becomes hypoxic -Continuous monitoring on pulse ox GI - Clear liquid diet Hematocheziapatient reports blood in stool. GI consulted. No indication for transfusion at this time RENAL/LYTES - Creatinine within normal limits. Appears euvolemic on exam. Continue with maintenance fluid - Strict I's and O ENDO - No history of diabetes or thyroid disease ICU hyperglycemic protocol HEME - Anemiahemoglobin 11.4. Monitor routine CBC and transfuse for hemoglobin less than 10 ID - Pneumonia?Recently treated for bronchitis with Bactrim. -No fevers or leukocytosis -CT chest with slight lower lobe opacity per Stat read interpretation, consider pneumonia? -Blood cultures and sputum culture pending, bio fire pending -Continue with ceftriaxone, doxycycline HIVcontinue Biktarvy -HIV quant and CD4 pending LINES/IV ACCESS - Peripheral IVs DVT PROPHYLAXIS - SCDs, Lovenox Thank you for allowing us to participate in the care of this patient. Please refer to my attending physician's documentation for any further recommendations. (2) Sickle cell pain crisis: (3) Community acquired pneumonia: (4) Bronchitis: (5) Chest pain syndrome: Supervising Physician Co-Signing Physician Notes I have personally evaluated and examined this patient. I agree with assessment and plan of Jessica CURRY. Reviewed radiology interpretation of CT scan. I consider the CT largely unremarkable. Per report the patient had completed a course of Bactrim approximately 1 month ago. There is no gunner lobar infiltrate, this is not consistent with acute chest syndrome, however the patient does exhibit signs consistent with an acute sickle crisis. The patient is positive for two viral etiologies via PCR. We will hydrate the patient for the next 24 hours. Continue baseline opiate medication and have ordered a CIGAR PACKING EXAMINER at half a milligram per hour continuous infusion with 0.1 mg for breakthrough every 20 minutes. Hopefully within the next 24 hours we should be able to de-escalate this given the hydration. There is no supplemental oxygen requirement needs at this time. I have reviewed the GI consultation. Patient has a history of thromboembolic disease and high risk factors including factor V Leiden. The amount of hemoptysis is described as scant, there is no significant anemia. I believe the benefits of systemic anticoagulation outweigh the risks, despite this the patient is declining Lovenox anticoagulation at this time secondary to frequent subcutaneous hematomas. Patient prefers to use heparin while in the hospital setting. We discussed risks and benefits of anticoagulation while traveling, patient is currently not on any form of anticoagulation. Reports venous thromboembolism while on Pradaxa rivaroxaban and Xarelto, will be starting Coumadin when returning to [place]. 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 Patient reports being agreeable to Lovenox or Arixtra upon discharge. Discussed with hospitalist, stable for downgrade from ICU History of Present Illness Attending Physician: Sidra Peralta MD History of Present Illness Patient is a 37-year-old -Spanish transgender female with past medical history significant for hypercoagulable state (factor V Leyden deficiency), pulmonary embolism, sickle cell anemia, HIV chronic anemia, chronic pain who presented to the emergency department earlier today with complaints of chest pain associated with cough and hemoptysis, and shortness of breath. She states that pain is similar to sickle cell crisis which she has had in the past and she does have a history of acute chest syndrome. She had also been seen at [facility] days ago. She had started to experience congestion and cough symptoms approximately 10 days ago. She was recently on weight-based Lovenox as well but was unable to tolerate due to abnormal bruising and intermittent hematochezia. Her associate brand manager was going to place her on Coumadin once her home INR machine arrived. CT chest did reveal mild splenomegaly at 14 cm and tree-in-bud changes in the left lung and right lower lobe opacities. Hematology was consulted and recommended transfer to tertiary center for possible need for exchange transfusion, however patient has refused transfer. It was then recommended that the patient be moved to ICU for closer monitoring. On arrival to the ICU the patient is alert and oriented and hemodynamically stable. She does continue to complain of chest pain, shortness of breath, and cough along with back pain. She appears anxious. She reports feeling warm at home but has not taken her temperature. She denies headache, dizziness, syncopal events, sinus drainage, sore throat, palpitations, abdominal pain, nausea vomiting or diarrhea, swelling in hands or feet, changes in gait. Allergies Allergy/AdvReac Type Severity Reaction Status Date / Time gadoversetamide Allergy Severe Anaphylaxis Verified 08/05/22 02:25 Iodinated Contrast Media Allergy Severe Anaphylaxis Verified 08/05/22 02:25 shellfish derived Allergy Severe Anaphylaxis Verified 08/05/22 02:22 ketorolac [From Toradol] Allergy Hives Verified 08/05/22 02:22 NSAIDS (Non-Steroidal Allergy Hives Verified 08/05/22 02:22 Anti-Inflamma Home Medications Medication Instructions Recorded Confirmed Type Hormone Injections 1 dose INJ .[id number] 08/05/22 08/05/22 History bictegravir 50 mg-emtricitabine 1 tab PO DAILY 08/05/22 08/05/22 History 200 mg-tenofovir alafenam 25 mg tablet (Biktarvy) folic acid 1 mg tablet 5 mg PO DAILY 08/05/22 08/05/22 History hydroxyurea 500 mg capsule 500 mg PO BID 08/05/22 08/05/22 History oxycodone 20 mg tablet,crush 20 mg PO Q12H PRN Pain 08/05/22 08/05/22 History resistant,extended release 12 hr (OxyContin) oxycodone 5 mg tablet 5 mg PO Q4H PRN Pain 08/05/22 08/05/22 History spironolactone 100 mg tablet 100 mg PO BID 08/05/22 08/05/22 History Patient History Social History Smoking Status: Never smoker Hx Alcohol Use: Yes Alcohol type: wine Hx Substance Use: No Preferred Language: Paraguayan Communication Ability: Effective Platform Worker Required: No Beliefs That Will Affect Care: None Current Living Situation: Significant Other Current Living Situation Comment: Apartment with fiance and 2 kids Feels Safe at Home: Yes Safety Concerns: Feels Safe At This Time Assistive Devices: None Review of Systems Review of Systems: All systems reviewed & are unremarkable except as noted in HPI & below Physical Exam Constitutional: cooperative; no altered mental status and + uncomfortable Eyes: PERRL, conjunctivae normal, anicteric sclerae ENMT: external ear and nose normal, oropharynx normal Neck: trachea midline, no thyromegaly Respiratory: + cough and symmetric chest movement; no labored breathing, does not use accessory muscles and not tachypneic Auscultation: + rhonchi (Bilateral); no crackles and no wheezes Cardiovascular: RRR, no murmur, no edema Heart Sounds: normal S1 and normal S2; no murmur Vessels: no JVD Extremities: no edema Gastrointestinal (Abdomen): normal bowel sounds, soft, nontender, no hepatosplenomegaly Musculoskeletal: no cyanosis or clubbing, extremities motor strength 5/5 Skin: no rashes, warm and dry Neurologic: PERRL, EOMI, accommodation nl, no face palsy, no dysarthria Psychiatric: A+Ox3, euthymic affect Results & Data Results & Data ([facility]) Vital Signs (Past 12 Hours) Vital Signs Temp Pulse Pulse Pulse Resp BP BP 08/05/22 06:08 08/05/22 05:45 36.5 C 100 H 24 159/101 H 08/05/22 04:01 08/05/22 04:01 37 C 95 H 16 135/90 08/05/22 02:30 126 H 19 08/05/22 02:00 123 H 23 08/05/22 01:30 117 H 22 08/05/22 01:12 122 H 22 08/05/22 00:30 120 H 15 08/05/22 00:00 115 H 21 08/04/22 23:41 112 H 18 171/105 H 08/04/22 23:30 107 H 19 08/04/22 23:00 106 H 17 08/04/22 22:30 117 H 08/04/22 21:35 109 H 08/04/22 22:15 110 H 20 08/04/22 22:00 112 H 18 08/04/22 21:46 113 H 20 08/04/22 21:15 08/04/22 21:15 112 H 20 08/04/22 21:30 110 H 18 08/04/22 21:15 112 H 19 08/04/22 21:08 113 H 23 08/04/22 20:52 36.6 C 120 H 16 151/98 H Pulse Ox Pulse Ox O2 Del Method O2 Del Method 08/05/22 06:08 95 Room Air 08/05/22 05:45 95 Room Air 08/05/22 04:01 Room Air 08/05/22 04:01 94 Room Air 08/05/22 02:30 08/05/22 02:00 08/05/22 01:30 08/05/22 01:12 97 Room Air 08/05/22 00:30 95 Room Air 08/05/22 00:00 08/04/22 23:41 96 Room Air 08/04/22 23:30 08/04/22 23:00 08/04/22 22:30 08/04/22 21:35 08/04/22 22:15 08/04/22 22:00 08/04/22 21:46 08/04/22 21:15 99 Room Air 08/04/22 21:15 99 Room Air 08/04/22 21:30 99 Room Air 08/04/22 21:15 99 Room Air 08/04/22 21:08 99 Room Air 08/04/22 20:52 98 Room Air Coding Level of Care Code INP/OBS CONSULT LVL 3, 45 MIN Diagnoses Chest pain R07.9 Sickle cell pain crisis D57.00 Community acquired pneumonia J18.9 Bronchitis J40 Chest pain syndrome R07.9 Time Spent (min) 55
[2022-08-05 07:24] LABS: Appearance Urine Clear (Clear); Bilirubin Urine Negative (Negative); Blood Urine Negative (Negative); Color Urine Yellow; Glucose Urine UA Negative (Negative); Ketones Urine Negative (Negative); Leukocyte Esterase Urine Negative (Negative); Nitrite Urine Negative (Negative); Protein Urine Negative (Negative); Specific Gravity Urine 1.005 (1.000-1.030); Urobilinogen Urine Negative (Negative)
[2022-08-05 07:29] LABS: Estimated Average Glucose 100 mg/dl; Hemoglobin A1C 5.1 % (4.5-5.6)
[2022-08-05] MEDS ORDERED: ENOXAPARIN 150 MG/ML SYR SQ SCH (07:30)
--- NOTE | 2022-08-05 07:33 | CT Scan Report ---
CT chest diagnostic wo con CLINICAL HISTORY: h/o of sickle cell TECHNIQUE: Multidetector row helical CT of the chest was performed. Coronal and sagittal reformations were obtained. Automated dose lowering techniques and/or adjustment according to patient size were u tilized for this exam. CT DOSE: 758.13 mGy.cm Comparison: Comparison is made to chest radiograph 07/11/2022 FINDINGS: Lungs and pleura: Bilateral tree in bud nodules are seen. No suspicious pulmonary nodules are seen. Heart and pericardium: Heart size is normal. No pericardial effusion. Vessels: Unremarkable. Mediastinum and shayy: Subcentimeter lymph nodes are seen. Chest wall and lower neck: Bilateral subpectoral breast implants are noted. Abdomen: Unremarkable. Bones: Unremarkable. IMPRESSION: Bilateral tree in bud nodules are seen which likely represent infectious/inflammatory changes. If the re is clinical concern, 3 month follow up study can be performed to ensure resolution. No bony lesion s are seen in this patient with history of sickle cell. ACT 112: Negative or not required by law. Electronically signed by: Dilshad Sanchez M.D. 08/05/2022 7:32 AM
[2022-08-05 07:51] LABS: Amphetamines+Metham, Urine Neg (Neg); Barbiturates, Urine Neg (Neg); Benzodiazepine, Urine Neg (Neg); Cocaine, Urine Neg (Neg); MDMA (Ecstacy), Urine Neg (Neg); Methadone, Urine Neg (Neg); Opiate, Urine Pos (Neg); Phencyclidine, Urine Neg (Neg)
--- NOTE | 2022-08-05 07:52 | Gastrointestinal Consultation ---
Date of Consultation August 05, 2022 Assessment & Plan (1) Rectal bleed: Likely hemorrhoidal. Her description of it sometimes dripping is very suggestive of hemorrhoidal bleeding. No significant drop in Hb/Hct. BUN is normal, no melena so do not suspect and UGI bleed. (2) Abdominal pain: She describes diffuse abd pain that improves w defecation, suggestive of IBS. Plan 1. Recommend OP GI f/u w his jig boring machine set up operator in [place] on return home for consideration for colonoscopy. 2. Dicyclomine 10mg PRN before meals. 3. Will watch peripherally. Please notify us if large rectal bleeding or significant drop in Hb/Hct. Supervising Physician Co-Signing Physician Notes Attg add: I interviewed and examined pt, reviewed chart and labs. Pt reports episodes of small volume rectal bleeding, described as streaks of blood with BM or blood dripping into toilet. Her hgb is 11 since admission. Rectal exam was performed by FIELD CROP FARMER; pt reports this as uncomfortable and prefers to defer exam by me. Hematochezia, with description that appears c/w perianal bleeding. There is no urgent need for endoscopy, given stable hgb and comorbid symptoms. She should pursue colonoscopy, with careful examination of perianal area, as an outpt -- she is agreeable to this plan, and tells me that she is able to arrange for follow up. Will sign off, but please reconsult us if she develops evidence of clinically significant GI bleed. History of Present Illness Reason for Consultation: Lower GI Bleed Requesting Physician: Dr. Becerril Attending Physician: Sidra Peralta MD History of Present Illness Ms. Aida Malone is a 37 yr old transgender female w a hx of Sickle Cell Disease, Factor 5 Leiden deficiency, Hx of PE/DVT and NOAC failure, CVA, HIV on meds, obesity and chronic pain. She lives in [place] and is in [place] for a relatives . She presented to the ED yesterday for hemoptysis and CP. She tells me that she has also had an aggressive cough, productive of mucous. GI is consulted for rectal bleeding. She reports passing bright red blood w BMs, about 3x/day for the past week and that the blood is typically on the toilet paper or drips in to the toilet. BMs are brown, formed. She sometimes leaks rectal blood with BMs as well. She carries a hx of perianal abscesses for which she has undergone colonoscopies in the past w removal of polyps then eventual surgical procedures to drain the abscesses. She is not aware of any hx of hemorrhoids, though on external anal inspection, there was a medium sized, non- bleeding hemorrhoid seen. She also reports severe abd cramping across the middle of the abd at the level of the umbilicus which lasts 1- 10 minutes and precedes the rectal bleeding. The cramping resolves w defecation. She denies recent constipation or diarrhea. Allergies Allergy/AdvReac Type Severity Reaction Status Date / Time gadoversetamide Allergy Severe Anaphylaxis Verified 08/05/22 02:25 Iodinated Contrast Media Allergy Severe Anaphylaxis Verified 08/05/22 02:25 shellfish derived Allergy Severe Anaphylaxis Verified 08/05/22 02:22 ketorolac [From Toradol] Allergy Hives Verified 08/05/22 02:22 NSAIDS (Non-Steroidal Allergy Hives Verified 08/05/22 02:22 Anti-Inflamma Home Medications Medication Instructions Recorded Confirmed Type Hormone Injections 1 dose [id number] .[id number] 08/05/22 08/05/22 History bictegravir 50 mg-emtricitabine 1 tab PO DAILY 08/05/22 08/05/22 History 200 mg-tenofovir alafenam 25 mg tablet (Biktarvy) folic acid 1 mg tablet 5 mg PO DAILY 08/05/22 08/05/22 History hydroxyurea 500 mg capsule 500 mg PO BID 08/05/22 08/05/22 History oxycodone 20 mg tablet,crush 20 mg PO Q12H PRN Pain 08/05/22 08/05/22 History resistant,extended release 12 hr (OxyContin) oxycodone 5 mg tablet 5 mg PO Q4H PRN Pain 08/05/22 08/05/22 History spironolactone 100 mg tablet 100 mg PO BID 08/05/22 08/05/22 History Patient History Medical History Sickle cell disease Social History Smoking Status: Never smoker Hx Alcohol Use: Yes Alcohol type: wine Hx Substance Use: No Preferred Language: Montserratian Communication Ability: Effective 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 Machine 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: No Beliefs That Will Affect Care: None Current Living Situation: Significant Other Current Living Situation Comment: Apartment with fiance and 2 kids Feels Safe at Home: Yes Safety Concerns: Feels Safe At This Time Assistive Devices: None Review of Systems Review of Systems: ROS: Gen: Denies weakness, fevers, weight loss Eyes: No eye redness, or pain, no recent vision changes Resp: + cough Cardio: + generalized CP, No palpitations/irregular beats GI: As per HPI : Denies pain on urination Skin: No icterus, + generalized itching, no new rashes Physical Exam Constitutional: WD/WN, vitals as above Eyes: PERRL, conjunctivae normal, anicteric sclerae ENMT: external ear and nose normal, oropharynx normal Neck: trachea midline, no thyromegaly Respiratory: normal respiratory effort, lungs clear to auscultation Cardiovascular: Rate/Rhythm: + tachycardic (110/min, regular rhythm, no murm urs) Gastrointestinal (Abdomen): Inspection/Auscultation: abdomen normal to inspection and normal bowel sounds; abdomen not distended Percussion/Palpation: + abdomen tender (over entire abdomen) and abdomen soft; no abdominal mass and no ascites Ext anal exam - difficult to complete as pt c/o pain even with the buttocks cheeks (even w/o palpation near the anus) + one medium sized, non bleeding hemorrhoid was noted. No other masses, no signs of fissure or perianal abscesses - but again, exam was limited due to pt sensitivity. Skin: no rashes, warm and dry Neurologic: moves all extremities and awake; not confused Lymphatic: no cervical or axillary lymphadenopathy Results & Data ([facility]) Vital Signs (Past 12 Hours) Vital Signs Temp Pulse Pulse Pulse Resp BP BP 08/05/22 06:00 08/05/22 06:30 95 H 24 179/96 H 08/05/22 06:08 08/05/22 05:45 36.5 C 100 H 24 159/101 H 08/05/22 04:01 08/05/22 04:01 37 C 95 H 16 135/90 08/05/22 02:30 126 H 19 08/05/22 02:00 123 H 23 08/05/22 01:30 117 H 22 08/05/22 01:12 122 H 22 08/05/22 00:30 120 H 15 08/05/22 00:00 115 H 21 08/04/22 23:41 112 H 18 171/105 H 08/04/22 23:30 107 H 19 08/04/22 23:00 106 H 17 08/04/22 22:30 117 H 08/04/22 21:35 109 H 08/04/22 22:15 110 H 20 08/04/22 22:00 112 H 18 08/04/22 21:46 113 H 20 08/04/22 21:15 08/04/22 21:15 112 H 20 08/04/22 21:30 110 H 18 08/04/22 21:15 112 H 19 08/04/22 21:08 113 H 23 08/04/22 20:52 36.6 C 120 H 16 151/98 H Pulse Ox Pulse Ox O2 Del Method O2 Del Method 08/05/22 06:00 Room Air 08/05/22 06:30 96 Room Air 08/05/22 06:08 95 Room Air 08/05/22 05:45 95 Room Air 08/05/22 04:01 Room Air 08/05/22 04:01 94 Room Air 08/05/22 02:30 08/05/22 02:00 08/05/22 01:30 08/05/22 01:12 97 Room Air 08/05/22 00:30 95 Room Air 08/05/22 00:00 08/04/22 23:41 96 Room Air 08/04/22 23:30 08/04/22 23:00 08/04/22 22:30 08/04/22 21:35 08/04/22 22:15 08/04/22 22:00 08/04/22 21:46 08/04/22 21:15 99 Room Air 08/04/22 21:15 99 Room Air 08/04/22 21:30 99 Room Air 08/04/22 21:15 99 Room Air 08/04/22 21:08 99 Room Air 08/04/22 20:52 98 Room Air Laboratory Results WBC 6.38, Hb 11, Hct 33.8, Plts 297, PT 99, INR 0.9, Na 133, K 4.5, Cl 103, CO2 24, BUN 22, Cr 1.05, glucose 1.48. Diagnostic Findings CT chest 08/04/22: Bilateral tree in bud nodules are seen which likely represent infectious/inflammatory changes. If there is clinical concern, 3 month follow up study can be performed to ensure resolution. No bony lesions are seen in this patient with history of sickle cell.
[2022-08-05] MEDS: NORMOSOL-R 1,000 ML IV SCH ×2 (07:57→14:57)
[2022-08-05] MEDS: ICU Protocol for HYPERglycemia SCH ×3 (07:58→20:53)
[2022-08-05] MEDS: FOLIC ACID 1 MG TAB PO SCH (07:59)
[2022-08-05] MEDS: HYDROXYUREA 500 MG CAP PO SCH ×2 (07:59→20:22)
[2022-08-05] MEDS: oxyCODONE HCL IR 5 MG TAB (IMMEDIATE RELEASE) PO PRN (08:02)
[2022-08-05 08:16] LABS: Hematocrit (blood only) 33.5 % (37.0-47.0); Mean Corpuscular Hemoglobin 30.1 pg (25.0-34.0); Mean Corpuscular Hgb Conc 32.8 g/dL (32.0-36.0); Mean Corpuscular Volume 91.8 fL (80.0-100.0); Mean Platelet Volume 9.1 fL (9.4-12.4); Platelet Count 297 K/uL (130-400); RDW Standard Deviation 61.5 fL (36.4-46.3); Red Blood Count 3.65 M/uL (4.20-5.40); White Blood Count 6.38 K/ul (4.8-10.8)
[2022-08-05 08:26] LABS: Calcium 9.8 mg/dl (8.5-10.1); Creatinine Clr Calc Pharmacy 112.6 ml/min; Est GFR (African American) 78.6 ml/min; Est GFR (Non-African American) 67.8 ml/min; Potassium 4.5 mmol/L (3.5-5.1)
[2022-08-05 08:53] LABS: Partial Thromboplastin Time 27.3 Seconds (21.0-31.0)
[2022-08-05] MEDS ORDERED: oxyCODONE HCL 20 MG TABCR (OxyCONTIN) PO SCH (09:00)
[2022-08-05 09:23] LABS: Adenovirus PCR Not Detected (NotDetected); Bordetella parapertussis PCR Not Detected (NotDetected); Bordetella pertussis PCR Not Detected (NotDetected); Chlamydia pneumoniae PCR Not Detected (NotDetected); Coronavirus 229E PCR Not Detected (NotDetected); Coronavirus CoV-2 (COVID19)PCR Not Detected (NotDetected); Coronavirus NL63 PCR Not Detected (NotDetected); Coronavirus OC43PCR Not Detected (NotDetected); Human Metapneumovirus PCR Not Detected (NotDetected); Influenza A PCR Not Detected (NotDetected); Influenza B PCR Not Detected (NotDetected); Mycoplasma pneumoniae PCR Not Detected (NotDetected); Parainfluenza Virus 1 PCR Not Detected (NotDetected); Parainfluenza Virus 2 PCR Not Detected (NotDetected); Parainfluenza Virus 4 PCR Not Detected (NotDetected); Respiratory Syncytial VirusPCR Not Detected (NotDetected); Rhinovirus/Enterovirus PCR Not Detected (NotDetected)
[2022-08-05 09:32] LABS: Coronavirus HKU1 PCR DETECTED (NotDetected)
[2022-08-05 09:33] LABS: Parainfluenza Virus 3 PCR DETECTED (NotDetected)
[2022-08-05 09:36] LABS: Basophils # (auto) 0.02 K/uL (0-0.2); Basophils % (auto) 0.3 %; Eosinophils # (auto) 0.01 K/uL (0-0.50); Eosinophils % (auto) 0.2 %; Immature Granulocytes # (auto) 0.57 K/uL (0.01-0.20); Immature Granulocytes % (auto) 8.9 %; Lymphocytes # (auto) 1.76 K/uL (1.2-3.4); Lymphocytes % (auto) 27.6 %; Monocytes # (auto) 0.28 K/uL (0.11-0.59); Monocytes % (auto) 4.4 %; Neutrophils # (auto) 3.74 K/uL (1.40-6.50); Neutrophils % (auto) 58.6 %
[2022-08-05] MEDS ORDERED: NALOXONE HCL 0.4 MG/1 ML VIAL/CARP IV PRN (10:00)
[2022-08-05] MEDS ORDERED: HYDROmorphone Bolus from PCA IV STA (10:00)
[2022-08-05] MEDS ORDERED: Heparin IV Adult Wt-Based Standard WITH Bolus Protocol IV SCH (10:39)
[2022-08-05] MEDS ORDERED: HEPARIN 25000 UNIT/500 ML D5W IV ONE (11:10)
[2022-08-05 11:29] LABS: Partial Thromboplastin Ratio 0.8; Partial Thromboplastin Time 21.7 Seconds (21.0-31.0); Prothrombin Time 10.2 Seconds (9.0-12.0)
[2022-08-05] MEDS ORDERED: HEPARIN SOD (PORCINE) 1000 UNIT/ML IV ONE (11:30)
[2022-08-05] MEDS: HEPARIN SODIUM/DEXTROSE 25,000 UNITS/500 ML BAG IV SCH (11:57)
[2022-08-05] MEDS: HYDROmorphone PCA 30 MG/30 ML IV PRN (11:59)
[2022-08-05] MEDS: SODIUM CHLORIDE 0.9% 1000ML 1,000 ML IV SCH (12:01)
--- NOTE | 2022-08-05 12:09 | Oncology Consultation ---
Date of Consultation August 05, 2022 Assessment & Plan (1) Sickle cell pain crisis: (2) Rectal bleed: (3) Factor V Leiden: (4) History of pulmonary embolism: Plan Pleasant 37-year-old transgender female with multiple comorbidities who was admitted with respiratory symptoms and was found to have parainfluenza infection. She also has a reported history of sickle cell Hb SC disease for which she is supposed to be on hydroxyurea. Interestingly, her labs are not suggestive of hemolysis with normal bilirubin.MCV is normal which suggests possible noncompliance with hydroxyurea Or may indicate presence of coexistent iron deficiency. Suspect that her respiratory symptoms are due to viral infection. Will attempt to obtain records from PCP/fence post cutter in [place]. Regarding her tachycardia, would recommend obtaining CTA chest to rule out PE since she endorses noncompliance with Lovenox. -Continue IV fluids -Obtain full work-up for anemia including iron studies, vitamin B12, folate, hemoglobin electrophoresis -Continue broad-spectrum antibiotic -Consider obtaining CTA chest to rule out PE given noncompliance with Lovenox -Obtain records from PCP/fence post cutter in [place] Thank you for this consult. Hematology continue following patient while in the hospital. Please feel free to call if have any further questions History of Present Illness Reason for Consultation: Sickle cell crisis Attending Physician: Sidra Peralta MD History of Present Illness 37-year-old female with reported history of sickle cell Hb SC disease, factor V Leiden mutation, PE/DVT on chronic anticoagulation and HIV who was admitted to [facility] with complaints of cough, shortness of breath and hemoptysis. Labs obtained on admission revealed hemoglobin of 11.4 with MCV of 92 and reticulocyte of 2.3. Chest x-ray was negative for acute process. CT chest without contrast revealed bilateral tree-in-bud nodules likely representing infectious/inflammatory changes. Respiratory panel revealed parainfluenza. She states that she lives in [place] but most of her family is from [place]. States that she is currently visiting [place] for her nephew's . Indicates that she follows up with a fence post cutter in [place]. Indicates that she is on hydroxyurea 500 mg p.o. twice daily, 5 mg p.o. Folic acid. Indicates that she has had acute chest syndrome in the past for which she has required simple blood transfusion as well as exchange blood Allergies Allergy/AdvReac Type Severity Reaction Status Date / Time gadoversetamide Allergy Severe Anaphylaxis Verified 08/05/22 02:25 Iodinated Contrast Media Allergy Severe Anaphylaxis Verified 08/05/22 02:25 shellfish derived Allergy Severe Anaphylaxis Verified 08/05/22 02:22 ketorolac [From Toradol] Allergy Hives Verified 08/05/22 02:22 NSAIDS (Non-Steroidal Allergy Hives Verified 08/05/22 02:22 Anti-Inflamma Home Medications Medication Instructions Recorded Confirmed Type Hormone Injections 1 dose INJ .[id number] 08/05/22 08/05/22 History bictegravir 50 mg-emtricitabine 1 tab PO DAILY 08/05/22 08/05/22 History 200 mg-tenofovir alafenam 25 mg tablet (Biktarvy) folic acid 1 mg tablet 5 mg PO DAILY 08/05/22 08/05/22 History hydroxyurea 500 mg capsule 500 mg PO BID 08/05/22 08/05/22 History oxycodone 20 mg tablet,crush 20 mg PO Q12H PRN Pain 08/05/22 08/05/22 History resistant,extended release 12 hr (OxyContin) oxycodone 5 mg tablet 5 mg PO Q4H PRN Pain 08/05/22 08/05/22 History spironolactone 100 mg tablet 100 mg PO BID 08/05/22 08/05/22 History Patient History Medical History (Updated 08/05/22 @ 16:25 by Selina Guzman MD) Sickle cell disease Social History Smoking Status: Never smoker Hx Alcohol Use: Yes Alcohol type: wine Hx Substance Use: No Preferred Language: Welsh Communication Ability: Effective Orthopedic Mechanic Required: No Beliefs That Will Affect Care: None Current Living Situation: Significant Other Current Living Situation Comment: Apartment with fiance and 2 kids Feels Safe at Home: Yes Safety Concerns: Feels Safe At This Time Assistive Devices: None Review of Systems Review of Systems: All systems reviewed & are unremarkable except as noted in HPI & below Results & Data ([facility]) Vital Signs (Past 12 Hours) Vital Signs Temp Pulse Pulse Pulse Resp BP BP 08/05/22 08:00 101 H 23 08/05/22 08:00 137/113 H 08/05/22 07:01 100 H 26 H 08/05/22 07:01 176/118 H 08/05/22 07:00 110 H 16 08/05/22 08:55 98 H 08/05/22 06:00 08/05/22 06:30 95 H 24 179/96 H 08/05/22 06:08 08/05/22 05:45 36.5 C 100 H 24 159/101 H 08/05/22 04:01 08/05/22 04:01 37 C 95 H 16 135/90 08/05/22 02:30 126 H 19 08/05/22 02:00 123 H 23 08/05/22 01:30 117 H 22 08/05/22 01:12 122 H 22 08/05/22 00:30 120 H 15 Pulse Ox Pulse Ox O2 Del Method O2 Del Method 08/05/22 08:00 92 Room Air 08/05/22 08:00 08/05/22 07:01 96 Room Air 08/05/22 07:01 08/05/22 07:00 96 Room Air 08/05/22 08:55 08/05/22 06:00 Room Air 08/05/22 06:30 96 Room Air 08/05/22 06:08 95 Room Air 08/05/22 05:45 95 Room Air 08/05/22 04:01 Room Air 08/05/22 04:01 94 Room Air 08/05/22 02:30 08/05/22 02:00 08/05/22 01:30 08/05/22 01:12 97 Room Air 08/05/22 00:30 95 Room Air
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
--- NOTE | 2022-08-05 12:36 | Electrocardiogram Report ---
Test Reason : Blood Pressure : / mmHG Vent. Rate : 110 BPM Atrial Rate : 110 BPM P-R Int : 154 ms QRS Dur : 082 ms QT Int : 308 ms P-R-T Axes : 054 004 022 degrees QTc Int : 416 ms Sinus tachycardia Otherwise normal ECG When compared with ECG of 31-JUL-2022 04:26, No significant change was found Confirmed by Daren Juarez ([id number]) on 08/05/2022 12:36:03 PM Referred By: REFERRED SELF Confirmed By:Daren Juarez
[2022-08-05] MEDS: DICYCLOMINE HCL 10 MG CAP PO SCH ×2 (12:51→16:53)
[2022-08-05 18:01] LABS: Reticulocyte % 2.4 % (0.5-2.0); Reticulocytes # 0.09 10^6/uL (0.02-0.10)
[2022-08-05 19:53] LABS: Partial Thromboplastin Ratio 1.3; Partial Thromboplastin Time 34.6 Seconds (21.0-31.0)
[2022-08-05] MEDS: DOXYCYCLINE HYCLATE 100 MG CAP PO SCH (20:22)
[2022-08-05] MEDS ORDERED: HEPARIN IV BOLUS 4,000 UNITS in SYRINGE 0 ML IV ONE (20:45)
[2022-08-05] MEDS: [UNRECOGNIZED DRUG - OTHER] SCH (20:52)
[2022-08-06] MEDS: HEPARIN SODIUM/DEXTROSE 25,000 UNITS/500 ML BAG IV SCH ×4 (00:15→13:01)
[2022-08-06] MEDS: NORMOSOL-R 1,000 ML IV SCH (01:32)
[2022-08-06] MEDS ORDERED: cefTRIAXone SODIUM 2,000 MG in DEXTROSE 5% AD-VAN 50 ML IV SCH (03:00)
[2022-08-06 03:44] LABS: Hematocrit (blood only) 31.7 % (37.0-47.0); Hemoglobin 10.3 g/dl (12.0-16.0); Mean Corpuscular Hemoglobin 29.9 pg (25.0-34.0); Mean Corpuscular Hgb Conc 32.5 g/dL (32.0-36.0); Mean Corpuscular Volume 91.9 fL (80.0-100.0); Mean Platelet Volume 9.1 fL (9.4-12.4); Platelet Count 272 K/uL (130-400); RDW Coefficient of Variation 18.1 % (11.5-14.5); RDW Standard Deviation 60.9 fL (36.4-46.3); Red Blood Count 3.45 M/uL (4.20-5.40); White Blood Count 6.23 K/ul (4.8-10.8)
[2022-08-06 03:56] LABS: Partial Thromboplastin Ratio 1.6
[2022-08-06] MEDS: diphenhydrAMINE 50 MG/ML VIAL IV PRN ×4 (04:03→23:43)
[2022-08-06 05:07] LABS: Calcium 8.9 mg/dl (8.5-10.1); Magnesium 1.8 mg/dl (1.7-2.4); Potassium 4.2 mmol/L (3.5-5.1)
[2022-08-06 05:11] LABS: Partial Thromboplastin Ratio 1.6; Partial Thromboplastin Time 42.9 Seconds (21.0-31.0)
[2022-08-06 05:12] LABS: Creatinine Clr Calc Pharmacy 130.2 ml/min; Est GFR (African American) 94.7 ml/min; Est GFR (Non-African American) 81.7 ml/min; Phosphorus 1.9 mg/dl (2.5-4.9)
[2022-08-06] MEDS ORDERED: cefTRIAXone SODIUM 2,000 MG in DEXTROSE 5% 50 ML IV SCH (07:00)
[2022-08-06] MEDS: ICU Protocol for HYPERglycemia SCH (08:44)
[2022-08-06] MEDS: [UNRECOGNIZED DRUG - OTHER] SCH ×3 (08:47→15:06)
[2022-08-06] MEDS: DICYCLOMINE HCL 10 MG CAP PO SCH ×3 (08:48→17:20)
[2022-08-06] MEDS: HYDROXYUREA 500 MG CAP PO SCH ×2 (08:49→20:25)
[2022-08-06] MEDS: DOXYCYCLINE HYCLATE 100 MG CAP PO SCH ×2 (08:49→20:26)
[2022-08-06] MEDS: FOLIC ACID 1 MG TAB PO SCH (08:50)
[2022-08-06] MEDS: SODIUM CHLORIDE 0.9% 1000ML 1,000 ML IV SCH ×2 (11:13→12:40)
--- NOTE | 2022-08-06 11:40 | Hospitalist Progress Note ---
Date of Service August 06, 2022 Assessment & Plan (1) Chest pain: Plan: 37-year-old transgender female [male to female, on hormonal treatment] with PMH of hypercoagulable state [factor V Leiden deficiency plus history of multiple PE and DVT, failed NOAC treatment] supposed to be on Lovenox subcu for anticoagulation [noncompliance], CVA, sickle cell anemia, HIV on medication, chronic pain, chronic anemia [baseline hemoglobin around 13 per patient] presented to the ED 08/04 w/ co worsening cough symptoms productive of junky sputum with blood streaks for the last few days [employer]. Possible sick contacts in the family. Patient vaccinated against COVID. Patient is a resident of [place], [place] here for a visit due to family reasons. Had cough symptoms with congestion and clear sputum 10 days ago [employer] and was evaluated in the ED 5 days ago at which point symptoms were attributed to bronchitis and sickle cell flare, chest x-ray was clear, patient was discharged home. Last attack was years ago as per patient. She is being managed for the following: Possible acute chest syndrome:Patient presents with chest pain/productive cough with streaks of blood with admitting CT -Bilateral tree in bud nodules are seen which likely represent infectious/inflammatory changes Acute painful episode History of sickle cell disease and sickle cell crisis Respiratory viral infection Likely bronchitis versus superimposed pneumonia Acute on chronic anemia:Multifactorial -sickle cell crisis versus pain versus GI bleed versus hemodialysis versus combination of all At admission pt was recommended transfer for tertiary care center ICU per oncall chest painting leader which patient declined. Admitting vitals: 36.4 C, 112 bpm, RR 20, 133/92 mmHg, on RA but required 2 L O2 transiently few hours later. Admitting EKG with sinus tachycardia. Admitting labs: Hemoglobin 11.4, folate and vitamin B12 WNL, UA-no UTI, MRSA negative,toxicology screen-positive opiates [no opiate prescription noted in PDMP system/pt is resident of [place]]/follow final results,CD4 count:Pending, respiratory viral panel -coronavirus [not COVID-19 infection] and parainfluenza 3 virus positive. 08/04 blood culture:Pending- [id number] Patient's baseline Hemoglobin around 13 per patient, admitting hemoglobin of 11 .4, will continue to monitor H&H daily or as required. We will continue with analgesia, oxygen prn, incentive spirometer, antibiotics and transfusion if needed w/ hematology recs. D/w count team member 08/05 - atkamryn deescalate to doxy, downgrade to PCU, BULL RIVETER pump for pain, c/w IVF for 24 hours. Resume anticoagulation. Will use NSS , continue to hold aldactone for now. Hematology evaled, recommends CTA chest. c/w home hydroxyurea dose for now. Pt would like to use heparin drip while in hospital and then go back on her lovenox on discharge. Discussed with the patient about her history of allergy to iodinated contrast in the past, she has gotten lips and throat swelling and anaphylaxis with the use of dye in the past. But she states that she has successfully received CTA chest with contrast with use of radiology protocol for allergy for contrast (steroids, benadryl; and epinephrine standby). And she is agreeable to a CTA chest with use of contrast with use of such protocol here. Same has been discussed with radiologist Dr. Sanchez and CTA chest has been ordered. Situational hypertension: Secondary to acute illness. As needed blood pressure medications, continue home Aldactone when able and pain management. Painless lower GI bleed: GI evaled, likely hemorrhoidal bleed, appreciate recs. Recs are - GI as OP and dicyclomine 10mg before meals. Other chronic medical conditions: Hypercoagulable state [factor V. Leyden deficiency + history of multiple PE and DVTs + NOAC failure]: Supposed to be on Lovenox, patient noncompliant with Lovenox recommendation from her chest painting leader due to abdominal bruising. Discussed about anticoagulation need, wants to use heparin drip while in the hospital and then will go back on Lovenox on discharge as per patient. Patient has a plan to get herself started on warfarin, she is awaiting PT/INR machine at home. CVA: Continue anticoagulation HIV: Continue home meds, patient requested to have somebody bring her HIV medication. Chronic pain: Continue home pain medications. DVT Px: On heparin drip Full code Admission and Anticipated Discharge Date Admission Date: August 05, 2022 Subjective Patient seen and examined at bedside as a follow-up of chest pain likely secondary to sickle cell crisis on the background of acute Patient was sitting up in bed, on 2L NC O2, NAD. Pt reports some improvement in pain in her thighs; but about the same pain in her chest and belly/lower back. Pt reports ongoing cough w/ yellow sputum. Pt has been eating ok, and no new acute events overnight. Patient denies feeling of heart racing or headache. Physical Exam Physical Exam: GENERAL: Alert and oriented x3. NAD, on 2L NC O2. HEENT: No pallor, no icterus. Pupils equal, round and reactive to light. Oral mucosa moist. NECK: No JVD, no neck masses. HEART: S1 and S2 heard. Regular rate and rhythm/tachycardic. No murmur, no gallop. RESPIRATORY SYSTEM: Normal AP diameter. No accessory muscle use. No wheezing, occasional crackles. ABDOMEN: Soft, bowel sounds present, no distention. CENTRAL NERVOUS SYSTEM: No facial droop. Speech is clear. Obeys simple commands. Moves extremities. EXTREMITIES: No edema, no erythema seen. Results & Data Results & Data ([facility]) Vital Signs (Past 12 Hours) Vital Signs Temp Pulse Pulse Pulse Resp BP Pulse Ox 08/06/22 09:43 08/06/22 08:00 08/06/22 08:00 112 H 08/06/22 07:26 36.8 C 92 H 20 136/107 H 100 08/06/22 03:37 36.6 C 107 H 20 158/116 H 99 08/06/22 00:11 150/97 H 08/05/22 23:34 36.6 C 104 H 19 172/110 H 95 O2 Del Method O2 Del Method O2 Flow Rate O2 Flow Rate 08/06/22 09:43 Nasal Cannula 2 08/06/22 08:00 Nasal Cannula 2 08/06/22 08:00 08/06/22 07:26 Nasal Cannula 2 08/06/22 03:37 Nasal Cannula 08/06/22 00:11 08/05/22 23:34 Nasal Cannula
[2022-08-06 11:48] LABS: Partial Thromboplastin Ratio 1.4; Partial Thromboplastin Time 37.8 Seconds (21.0-31.0)
[2022-08-06] MEDS ORDERED: HEPARIN SOD (PORCINE) 1000 UNIT/ML IV ONE (12:30)
[2022-08-06] MEDS: POT PHOSPHATE MONOBASIC W/ SOD TAB PO SCH ×3 (12:42→20:25)
[2022-08-06] MEDS: oxyCODONE HCL IR 5 MG TAB (IMMEDIATE RELEASE) PO PRN (13:15)
[2022-08-06] MEDS: HYDROmorphone INJ 1 MG/ML SYRINGE IV PRN ×4 (14:03→23:43)
[2022-08-06] MEDS ORDERED: EPINEPHrine INJ 1 MG/ML AMP IM PRN (14:10)
[2022-08-06] MEDS: BENZONATATE 100 MG CAPSULE PO PRN (15:19)
[2022-08-06] MEDS ORDERED: predniSONE 50 MG TAB PO SCH (18:00)
[2022-08-06] MEDS: LABETALOL HCL IV 5 MG/ML 20ML IV PRN (18:11)
[2022-08-06 20:51] LABS: Partial Thromboplastin Ratio 1.6; Partial Thromboplastin Time 44.7 Seconds (21.0-31.0)
[2022-08-06] MEDS: HYDROmorphone PCA 30 MG/30 ML IV PRN (21:56)
[2022-08-06] MEDS ORDERED: Patient's ALLERGY Info needs ENTERED SCH (23:00)
[2022-08-07 00:03] LABS: Codeine Urine NEGATIVE ng/mL (<50); Hydrocodone Urine NEGATIVE ng/mL (<50); Hydromor Urine 388 ng/mL (<50); Morphine Urine NEGATIVE ng/mL (<50); Norhydrocodone Conf Ur NEGATIVE ng/mL (<50); Noroxycodone Urine NEGATIVE ng/mL (<50); Oxycodone Urine NEGATIVE ng/mL (<50); Oxymorph Urine NEGATIVE ng/mL (<50)
[2022-08-07] MEDS: HEPARIN SODIUM/DEXTROSE 25,000 UNITS/500 ML BAG IV SCH (00:19)
[2022-08-07] MEDS: [UNRECOGNIZED DRUG - OTHER] SCH ×4 (00:56→23:47)
[2022-08-07] MEDS ORDERED: HYDROmorphone INJ 1 MG/ML SYRINGE IV STA (01:14)
--- NOTE | 2022-08-07 01:17 | Communication Note ---
Date of Service: August 07, 2022 Patient with sudden onset hematemesis as per RN. Abdominal pain and mild headache symptoms. AP UGIB Headache Ongoing IV heparin infusion for history recurrent PE DVT Hold IV heparin for now CT abdomen pelvis Re: UGIB with abdominal pain CT head Re: Headache IV PPI Will request AM provider to update GI of developments. CT head initial read: No acute intracranial abnormality. Moderate sinus mucosal disease including opacification of the right maxillary sinus. CT abdomen pelvis initial read: There is complex material within the stomach, correlation with endoscopy findings is suggested. No definite acute CT abnormality identified.
[2022-08-07] MEDS ORDERED: PROMETHAZINE HCL 12.5 MG in SODIUM CHLORIDE 0.9% 50 ML IV STA (01:21)
[2022-08-07] MEDS ORDERED: MAGNESIUM SULFATE / D5W 1 GM/100 ML BAG IV ONE ×2 (01:26→03:24)
[2022-08-07] MEDS ORDERED: PANTOprazole 80 MG in DEXTROSE 5% 100 ML IV ONE (01:30)
[2022-08-07] MEDS: SODIUM CHLORIDE 0.9% 1000ML 1,000 ML IV SCH ×2 (02:06→11:53)
[2022-08-07 02:27] LABS: Hemoglobin 10.3 g/dl (12.0-16.0); Mean Corpuscular Hemoglobin 29.9 pg (25.0-34.0); Mean Corpuscular Hgb Conc 32.2 g/dL (32.0-36.0); Mean Corpuscular Volume 92.8 fL (80.0-100.0); Mean Platelet Volume 9.6 fL (9.4-12.4); Nucleated RBC # (auto) 0.02 K/uL (0-0.12); Nucleated RBC % (auto) 0.3 %; Platelet Count 218 K/uL (130-400); RDW Standard Deviation 61.1 fL (36.4-46.3); Red Blood Count 3.45 M/uL (4.20-5.40); White Blood Count 7.67 K/ul (4.8-10.8)
[2022-08-07] MEDS: PANTOprazole 40 MG in DEXTROSE 5% 100 ML IV SCH ×3 (02:31→11:52)
[2022-08-07] MEDS: predniSONE 50 MG TAB PO SCH ×2 (02:35→10:11)
[2022-08-07 03:01] LABS: BUN Creatinine Ratio 15.3 (10-20); Calcium 8.8 mg/dl (8.5-10.1); Creatinine Clr Calc Pharmacy 119.6 ml/min; Est GFR (African American) 85.4 ml/min; Est GFR (Non-African American) 73.7 ml/min; Magnesium 1.5 mg/dl (1.7-2.4); Phosphorus 2.9 mg/dl (2.5-4.9); Potassium 4.2 mmol/L (3.5-5.1)
[2022-08-07 03:16] LABS: Partial Thromboplastin Time 26.4 Seconds (21.0-31.0)
[2022-08-07] MEDS: diphenhydrAMINE 50 MG/ML VIAL IV PRN ×4 (05:45→17:53)
[2022-08-07] MEDS: HYDROmorphone INJ 1 MG/ML SYRINGE IV PRN ×6 (05:46→21:01)
[2022-08-07 06:32] LABS: ALC (manual) 1.99 K/uL (1.2-3.4); ANC (manual) 5.29 K/uL (1.4-6.5); Lymphocytes # (manual) 1.99 K/uL (1.2-3.4); Lymphocytes % (manual) 26 %; Metamyelocytes # (manual) 0.08 K/uL (0-0); Metamyelocytes % (manual) 1 %; Monocytes # (manual) 0.23 K/uL (0.11-0.59); Monocytes % (manual) 3 %; Myelocytes # (manual) 0.15 K/uL (0-0); Myelocytes % (manual) 2 %; Neutrophils # (manual) 5.29 K/uL (1.40-6.50); Neutrophils % (manual) 69 %; Polychromasia 1+
--- NOTE | 2022-08-07 06:44 | CT Scan Report ---
CT head/brain wo con CLINICAL HISTORY: 37 years-old Female with sheth. Acute headache TECHNIQUE: Multiple axial CT images of the head were obtained without contrast. A dose lowering tech nique was utilized adhering to the principles of ALARA. CT DOSE: 800.40 mGycm COMPARISON: None. FINDINGS: No acute intracranial hemorrhage, midline shift, intracranial mass, hydrocephalus, territorial ischem ia or abnormal extra-axial collection. Motion degraded exam. Low-lying cerebellar tonsils. The calvarium is intact. Mastoid air cells are clear. Moderate mucosal thickening of the maxillary a nd ethmoid sinuses. IMPRESSION: 1. Motion degraded exam without acute intracranial abnormality identified. 2. Moderate paranasal sinus disease. ACT 112: Negative or not required by law. The above report was generated using voice recognition software. It may contain grammatical, syntax o r spelling errors. Electronically signed by: Mohinder Higgins M.D. 08/07/2022 6:43 AM
--- NOTE | 2022-08-07 07:20 | CT Scan Report ---
ABDOMEN AND PELVIS CT WITHOUT CONTRAST CT DOSE: 1092.50 mGycm HISTORY: Acute upper GI bleed with generalized abdominal pain ugib, pain TECHNIQUE: Multiaxial CT images of the abdomen and pelvis were performed without contrast. A dose lo wering technique was utilized adhering to the principles of ALARA. COMPARISON STUDY: Chest CT 08/04/2022 FINDINGS: Partially imaged breast implants. Subsegmental tree-in-bud nodules within the left lower lo be are redemonstrated, likely infectious or inflammatory. No pneumatosis or pneumoperitoneum. The une nhanced spleen, pancreas, gallbladder, adrenal glands and liver appear unremarkable. Unremarkable kidneys. No urolith or hydronephrosis. Unremarkable urinary bladder. Uterus appears surg ically absent. No adnexal mass lesions identified. Aorta and IVC are unremarkable. No lymphadenopathy . Debris-filled stomach suggestive of recent meal with mixed attenuating material. No bowel obstruction or bowel wall thickening. Mild to moderate colonic fecal retention. Surgical suture material adjacen t to the cecum suggestive of appendectomy. Unremarkable soft tissues. 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 No acute fracture. IMPRESSION: 1. No acute intra-abdominal or intrapelvic abnormality identified. 2. No bowel obstruction or bowel wall thickening. 3. 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 4. Subsegmental tree-in-bud nodules of the left lower lobe are suggestive of a mild bronchiolitis. ACT 112: Negative or not required by law. The above report was generated using voice recognition software. It may contain grammatical, syntax o r spelling errors. Electronically signed by: Mohinder Higgins M.D. 08/07/2022 7:18 AM
[2022-08-07] MEDS: DICYCLOMINE HCL 10 MG CAP PO SCH ×2 (08:10→11:54)
[2022-08-07] MEDS: DOXYCYCLINE HYCLATE 100 MG CAP PO SCH ×2 (08:11→20:23)
[2022-08-07] MEDS: FOLIC ACID 1 MG TAB PO SCH (08:12)
[2022-08-07] MEDS: HYDROXYUREA 500 MG CAP PO SCH ×2 (08:12→20:23)
[2022-08-07] MEDS: POT PHOSPHATE MONOBASIC W/ SOD TAB PO SCH ×3 (08:12→18:01)
[2022-08-07 08:41] LABS: Hemoglobin 11.1 g/dl (12.0-16.0)
--- NOTE | 2022-08-07 09:12 | Hospitalist Progress Note ---
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 Possible sick contacts in the family. Patient vaccinated against COVID. Patient is a resident of [place], [place] here for a visit due to family reasons. 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 Last attack was years ago as per patient. She is being managed for the following: Possible acute chest syndrome:Patient presents with chest pain/productive cough with streaks of blood with admitting CT -Bilateral tree in bud nodules are seen which likely represent infectious/inflammatory changes - acute chest syndrome was ruled out Acute painful episode History of sickle cell disease and sickle cell crisis Respiratory viral infection Likely bronchitis versus superimposed pneumonia Acute on chronic anemia:Multifactorial -sickle cell crisis versus pain versus GI bleed versus hemodialysis versus combination of all At admission pt was recommended transfer for tertiary care center ICU per oncall core driller helper which patient declined. Admitting vitals: 36.4 C, 112 bpm, RR 20, 133/92 mmHg, on RA but required 2 L O2 transiently few hours later. Admitting EKG with sinus tachycardia. Admitting labs: Hemoglobin 11.4, folate and vitamin B12 WNL, UA-no UTI, MRSA negative,toxicology screen-positive opiates [no opiate prescription noted in PDMP system/pt is resident of [place]]/follow final results,CD4 count:Pending, r espiratory viral panel -coronavirus [not COVID-19 infection] and parainfluenza 3 virus positive. 08/04 blood culture:Pending- NG 48 hrs Patient's baseline Hemoglobin around 13 per patient, admitting hemoglobin of 11.4, will continue to monitor H&H daily or as required. We will continue with analgesia, oxygen prn, incentive spirometer, antibiotics and transfusion if needed w/ hematology recs. D/w rivet thrower 08/05 - atb deescalate to doxy, downgrade to PCU, BUSINESS ANALYTICS DIRECTOR pump for pain, c/w IVF for 24 hours. Resume anticoagulation. Will use NSS , continue to hold aldactone for now. Hematology evaled, recommends CTA chest patient underwent CT PE protocol today (08/07/2022), and no PE found. CT image also reviewed by pulmonary medicine doctor, and recommends no follow-up and no further recommendation. c/w home hydroxyurea dose for now. Pt would like to use heparin drip while in hospital and then go back on her lovenox on discharge. Heparin drip stopped overnight, due to episode of hematemesis. (Per previous hospitalist - discussed with the patient about her history of allergy to iodinated contrast in the past, she has gotten lips and throat swelling and anaphylaxis with the use of dye in the past. But she states that she has successfully received CTA chest with contrast with use of radiology protocol for allergy for contrast (steroids, benadryl; and epinephrine standby). And she is agreeable to a CTA chest with use of contrast with use of such protocol here. Same has been discussed with radiologist Dr. Sanchez and CTA chest has been ordered.) Situational hypertension: Secondary to acute illness. As needed blood pressure medications, continue home Aldactone when able and pain management. Painless lower GI bleed: GI evaled, likely hemorrhoidal bleed, appreciate recs. Recs are - GI as OP and dicyclomine 10mg before meals. Episode of hematemesis - CT abdomen obtained and reviewed by GI - Suspect acid- peptic injury, related to prednisone, it possible that pt has gastroparesis, related to narcotic use, IV PPI, carafate, monitor H&H, NPO after MN Other chronic medical conditions: Hypercoagulable state [factor V. Leiden deficiency + history of multiple PE and DVTs + NOAC failure]: Supposed to be on Lovenox, patient noncompliant with Lovenox recommendation from her core driller helper due to abdominal bruising. Discussed about anticoagulation need, wants to use heparin drip while in the hospital and then will go back on Lovenox on discharge as per patient. Patient has a plan to get herself started on warfarin, she is awaiting PT/INR machine at home. CVA: Continue anticoagulation HIV: Continue home meds, patient requested to have somebody bring her HIV medication. Chronic pain: Continue home pain medications. DVT Px: On heparin drip- on hold now d/t episode of hematemesis Full code Admission and Anticipated Discharge Date Admission Date: August 05, 2022 Subjective Patient seen in follow-up of chest pain likely secondary to sickle cell crisis on the background of acute Patient sitting up in bed, on RA, in NAD. Overnight reportedly patient had hematemesis Currently no nausea or vomiting. GI aware. IV heparin therefore stopped overnight. Patient to undergo CT PE. Still continues to have some chest discomfort. Reports some cough. However breathing comfortably on room air. Discussed with GI, discussed also with hematology, Dr. Guzman. Also discussed with pulmonary medicine, as they reviewed patient CT. Also tried to acquire medical records from patient's outpatient providers in [place], however this has been unsuccessful. Review of Systems Review of Systems: All systems reviewed & are unremarkable except as noted in Subjective Physical Exam Physical Exam: GENERAL: Alert an d oriented x3. NAD , on RA HEENT: No pallor, no icteru s. Pupils equal, round and reactive to light. Oral m ucosa moist. NECK: No JVD, no neck masses. HEART: S1 and S2 heard. Re gular rate and rhy thm/tachycardic. No murmur, no gall op. RESPIRATORY: Normal AP diameter . No accessory mu scle use. No whee zing, occasional c rackles. ABDOMEN: Soft, bowel sound s present, no dist ention. NEURO: No facial droop. Sp eech is clear. Ob eys simple command s. Moves extremit ies. EXTREMITIES: No edema, no eryt luna seen. Results & Data Results & Data ([facility]) Vital Signs (Past 12 Hours) Vital Signs Temp Pulse Pulse Resp BP Pulse Ox O2 Del Method 08/07/22 07:44 36.9 C 18 153/112 H 96 Room Air 08/07/22 04:25 37 C 93 H 19 162/109 H 100 Nasal Cannula 08/07/22 01:10 36.8 C 120 H 20 163/101 H 98 Room Air 08/06/22 23:26 109 H 20 165/117 H 97 Room Air 08/06/22 23:00 113 H O2 Flow Rate 08/07/22 07:44 08/07/22 04:25 2 08/07/22 01:10 08/06/22 23:26 08/06/22 23:00 Laboratory Results 08/07/22 08/07/22 08/07/22 Range/Units 08:13 01:54 01:54 WBC (4.8-10.8) K/ul RBC (4.20-5.40) M/uL Hgb 11.1 L (12.0-16.0) g/dl Hct 34.0 L (37.0-47.0) % MCV (80.0-100.0) fL MCH (25.0-34.0) pg MCHC (32.0-36.0) g/dL RDW Std Deviation (36.4-46.3) fL RDW Coeff of López (11.5-14.5) % Plt Count (130-400) K/uL MPV (9.4-12.4) fL Absolute Nucleated RBC (0-0.12) K/uL Nucleated RBC % (auto) % Neutrophils % (Manual) % Lymphocytes % (Manual) % Monocytes % (Manual) % Metamyelocytes % (Man) % Myelocytes % (Man) % Neutrophils # (Manual) (1.40-6.50) K/uL Total Absolute Neuts (1.4-6.5) K/uL Lymphocytes # (Manual) (1.2-3.4) K/uL Total Abs Lymphocytes (1.2-3.4) K/uL Monocytes # (Manual) (0.11-0.59) K/uL Metamyelocytes # (Man) (0-0) K/uL Myelocytes # (Manual) (0-0) K/uL Polychromasia APTT 26.4 (21.0-31.0) Seconds PTT Ratio 1.0 Sodium 135 L (136-145) mmol/L Potassium 4.2 (3.5-5.1) mmol/L Chloride 102 (98-107) mmol/L Carbon Dioxide 26 (21-32) mmol/L Anion Gap 7 (3-11) BUN 15 (6-23) mg/dl Creatinine 0.98 (0.6-1.2) mg/dl Est Cr Clr Drug Dosing 119.6 ml/min Est GFR ( Amer) 85.4 ml/min Est GFR (Non-Af Amer) 73.7 ml/min BUN/Creatinine Ratio 15.3 (10-20) Glucose 256 H (70-99(Fasting)) mg/dl Calcium 8.8 (8.5-10.1) mg/dl Phosphorus 2.9 D (2.5-4.9) mg/dl Magnesium 1.5 L (1.7-2.4) mg/dl U Codeine Confrm GC/MS (<50) ng/mL Ur Morphine (GC/MS) (<50) ng/mL Ur Hydrocodone (GC/MS) (<50) ng/mL Ur Norhydrocodone (<50) ng/mL Ur Noroxycodone (<50) ng/mL Urine Oxycodone (GC/MS) (<50) ng/mL U Oxymorphone GC/MS (<50) ng/mL Ur Hydromorphone (GC/MS) (<50) ng/mL Drug Screen Comment 08/07/22 08/06/22 08/06/22 Range/Units 01:54 20:01 10:25 WBC 7.67 (4.8-10.8) K/ul RBC 3.45 L (4.20-5.40) M/uL Hgb 10.3 L (12.0-16.0) g/dl Hct 32.0 L (37.0-47.0) % MCV 92.8 (80.0-100.0) fL MCH 29.9 (25.0-34.0) pg MCHC 32.2 (32.0-36.0) g/dL RDW Std Deviation 61.1 H (36.4-46.3) fL RDW Coeff of López 18.0 H (11.5-14.5) % Plt Count 218 (130-400) K/uL MPV 9.6 (9.4-12.4) fL Absolute Nucleated RBC 0.02 (0-0.12) K/uL Nucleated RBC % (auto) 0.3 % Neutrophils % (Manual) 69 % Lymphocytes % (Manual) 26 % Monocytes % (Manual) 3 % Metamyelocytes % (Man) 1 % Myelocytes % (Man) 2 % Neutrophils # (Manual) 5.29 (1.40-6.50) K/uL Total Absolute Neuts 5.29 (1.4-6.5) K/uL Lymphocytes # (Manual) 1.99 (1.2-3.4) K/uL Total Abs Lymphocytes 1.99 (1.2-3.4) K/uL Monocytes # (Manual) 0.23 (0.11-0.59) K/uL Metamyelocytes # (Man) 0.08 H (0-0) K/uL Myelocytes # (Manual) 0.15 H (0-0) K/uL Polychromasia 1+ APTT 44.7 H 37.8 H (21.0-31.0) Seconds PTT Ratio 1.6 1.4 Sodium (136-145) mmol/L Potassium (3.5-5.1) mmol/L Chloride (98-107) mmol/L Carbon Dioxide (21-32) mmol/L Anion Gap (3-11) BUN (6-23) mg/dl Creatinine (0.6-1.2) mg/dl Est Cr Clr Drug Dosing ml/min Est GFR ( Amer) ml/min Est GFR (Non-Af Amer) ml/min BUN/Creatinine Ratio (10-20) Glucose (70-99(Fasting)) mg/dl Calcium (8.5-10.1) mg/dl Phosphorus (2.5-4.9) mg/dl Magnesium (1.7-2.4) mg/dl U Codeine Confrm GC/MS (<50) ng/mL Ur Morphine (GC/MS) (<50) ng/mL Ur Hydrocodone (GC/MS) (<50) ng/mL Ur Norhydrocodone (<50) ng/mL Ur Noroxycodone (<50) ng/mL Urine Oxycodone (GC/MS) (<50) ng/mL U Oxymorphone GC/MS (<50) ng/mL Ur Hydromorphone (GC/MS) (<50) ng/mL Drug Screen Comment 08/05/22 Range/Units 07:00 WBC (4.8-10.8) K/ul RBC (4.20-5.40) M/uL Hgb (12.0-16.0) g/dl Hct (37.0-47.0) % MCV (80.0-100.0) fL MCH (25.0-34.0) pg MCHC (32.0-36.0) g/dL RDW Std Deviation (36.4-46.3) fL RDW Coeff of López (11.5-14.5) % Plt Count (130-400) K/uL MPV (9.4-12.4) fL Absolute Nucleated RBC (0-0.12) K/uL Nucleated RBC % (auto) % Neutrophils % (Manual) % Lymphocytes % (Manual) % Monocytes % (Manual) % Metamyelocytes % (Man) % Myelocytes % (Man) % Neutrophils # (Manual) (1.40-6.50) K/uL Total Absolute Neuts (1.4-6.5) K/uL Lymphocytes # (Manual) (1.2-3.4) K/uL Total Abs Lymphocytes (1.2-3.4) K/uL Monocytes # (Manual) (0.11-0.59) K/uL Metamyelocytes # (Man) (0-0) K/uL Myelocytes # (Manual) (0-0) K/uL Polychromasia APTT (21.0-31.0) Seconds PTT Ratio Sodium (136-145) mmol/L Potassium (3.5-5.1) mmol/L Chloride (98-107) mmol/L Carbon Dioxide (21-32) mmol/L Anion Gap (3-11) BUN (6-23) mg/dl Creatinine (0.6-1.2) mg/dl Est Cr Clr Drug Dosing ml/min Est GFR ( Amer) ml/min Est GFR (Non-Af Amer) ml/min BUN/Creatinine Ratio (10-20) Glucose (70-99(Fasting)) mg/dl Calcium (8.5-10.1) mg/dl Phosphorus (2.5-4.9) mg/dl Magnesium (1.7-2.4) mg/dl U Codeine Confrm GC/MS NEGATIVE (<50) ng/mL Ur Morphine (GC/MS) NEGATIVE (<50) ng/mL Ur Hydrocodone (GC/MS) NEGATIVE (<50) ng/mL Ur Norhydrocodone NEGATIVE (<50) ng/mL Ur Noroxycodone NEGATIVE (<50) ng/mL Urine Oxycodone (GC/MS) NEGATIVE (<50) ng/mL U Oxymorphone GC/MS NEGATIVE (<50) ng/mL Ur Hydromorphone (GC/MS) 388 H (<50) ng/mL Drug Screen Comment SEE NOTE Medications Administered Current Inpatient Medications Acetaminophen (Acetaminophen 325 Mg Tab) 650 mg PO Q4H PRN PRN Reason: Pain or Fever Stop: 09/04/22 03:42 Benzonatate (Benzonatate 100 Mg Capsule) 100 mg PO TID PRN PRN Reason: Cough Stop: 09/04/22 02:02 Last Admin: 08/06/22 15:19 Dose: 100 mg Dicyclomine HCl (Dicyclomine Hcl 10 Mg Cap) 10 mg PO AC [facility] Stop: 09/04/22 11:29 Last Admin: 08/07/22 08:10 Dose: 10 mg Diphenhydramine HCl (Diphenhydramine 50 Mg/Ml Vial) 50 mg IV Q6H PRN PRN Reason: Itching Stop: 09/04/22 03:34 Last Admin: 08/07/22 05:45 Dose: 50 mg Diphenhydramine HCl (Diphenhydramine Capsule 25 Mg Cap) 50 mg PO ONE ONE Stop: 08/07/22 10:01 Doxycycline Hyclate (Doxycycline Hyclate 100 Mg Cap) 100 mg PO BID [facility] Stop: 08/12/22 20:59 Last Admin: 08/07/22 08:11 Dose: 100 mg Epinephrine HCl (Epinephrine Inj 1 Mg/Ml Amp) 0.3 mg IM ONE PRN PRN Reason: procedure/ANAPHYLAXIS Stop: 08/07/22 23:59 Folic Acid (Folic Acid 1 Mg Tab) 5 mg PO DAILY [facility] Stop: 09/04/22 08:59 Last Admin: 08/07/22 08:12 Dose: 5 mg Hydromorphone HCl (Hydromorphone Inj 1 Mg/Ml Syringe) 1 mg IV Q3H PRN PRN Reason: Pain Stop: 08/19/22 02:02 Last Admin: 08/07/22 08:53 Dose: 1 mg Hydromorphone HCl (Hydromorphone Provider Contracting Consultant 30 Mg/30 Ml) 30 mg IV PRN PRN; Protocol PRN Reason: BUSINESS ANALYTICS DIRECTOR Pain Titration Stop: 08/19/22 09:59 Last Admin: 08/06/22 21:56 Dose: 30 mg Hydroxyurea (Hydroxyurea 500 Mg Cap) 500 mg PO BID [facility] Stop: 09/04/22 08:59 Last Admin: 08/07/22 08:12 Dose: 500 mg Promethazine HCl 12.5 mg/ (Sodium Chloride) 50.5 mls @ 202 mls/hr IV Q6H PRN PRN Reason: Nausea And Vomiting Stop: 09/04/22 02:02 Sodium Chloride (Nss 1000ml) 1,000 mls @ 15 mls/hr IV .Q24H [facility] Stop: 08/19/22 10:02 Last Admin: 08/06/22 11:13 Dose: Not Given Heparin Sodium/Dextrose (Heparin Sodium/Dextrose) 25,000 units in 500 mls @ 0 mls/hr IV .Q0M [facility]; Protocol Stop: 09/04/22 10:59 Last Titration: 08/07/22 01:10 Dose: 0 units/hr, 0 mls/hr Sodium Chloride (Nss 1000ml) 1,000 mls @ 70 mls/hr IV .[id number] [facility] Stop: 08/07/22 16:04 Last Admin: 08/07/22 02:06 Dose: 70 mls/hr Pantoprazole Sodium 40 mg/ (Dextrose) 100 mls @ 20 mls/hr IV Q5H [facility] Stop: 09/06/22 02:29 Last Admin: 08/07/22 07:17 Dose: 8 mg/hr, 20 mls/hr Labetalol HCl (Labetalol Hcl Iv 5 Mg/Ml 20ml) 10 mg IV Q6H PRN PRN Reason: hypertension Stop: 09/04/22 13:09 Last Admin: 08/06/22 18:11 Dose: 10 mg Lorazepam (Lorazepam 0.5 Mg Tab) 0.5 mg PO TID PRN PRN Reason: Anxiety Stop: 09/04/22 02:02 Magnesium Oxide (Magnesium Oxide 400 Mg Tab) 400 mg PO QAM [facility] Stop: 09/06/22 09:14 Miscellaneous (Order Awaiting Action: [id number]-Bzvwkyuo-Vclvepy Ala [Biktarvy] 50-200-25 Mg Tablet) 1 each N/A QS [facility] Stop: 09/04/22 07:59 Last Admin: 08/07/22 08:11 Dose: Not Given Naloxone HCl (Naloxone Hcl 0.4 Mg/1 Ml Vial/Carp) 0.1 mg IV Q5M PRN; Protocol PRN Reason: Oversedation/Resp Depression Stop: 08/19/22 09:59 Oxycodone HCl (Oxycodone Hcl Ir 5 Mg Tab (Immediate Release)) 5 - 10 mg PO QID PRN PRN Reason: Pain Stop: 08/19/22 02:02 Last Admin: 08/06/22 13:15 Dose: 10 mg Potassium Phosphate (Pot Phosphate Monobasic W/ Sod Tab) 2 tab PO QID [facility] Stop: 08/07/22 17:01 Last Admin: 08/07/22 08:12 Dose: 2 tab Prednisone (Prednisone 50 Mg Tab) 50 mg PO Q8H [facility] Stop: 08/07/22 10:01 Last Admin: 08/07/22 02:35 Dose: 50 mg
[2022-08-07] MEDS ORDERED: FAMOTIDINE 20 MG TAB PO SCH (10:00)
[2022-08-07] MEDS ORDERED: diphenhydrAMINE Capsule 25 MG CAP PO ONE (10:00)
--- NOTE | 2022-08-07 10:25 | Gastroenterology Progress Note ---
Date of Service August 07, 2022 Assessment & Plan (1) Abdominal pain: Plan: 37 year old female admitted with sickle cell crisis, parainfluenza, GI asked to evaluate for epigastric pain followed by episode of hematemesis last evening. Heparin gtt was stopped Vitals stable, HGB stable (improved from admission HGB) w/o BUN elevation. Stat CT last evening with debris in stomach but no report of acute GI findings. Symptoms resolved, currently pain free requesting diet. Will discuss with attending Trend H&H Monitor and document GI output Transfuse per primary service IV PPI BID x 48 hours then PO PPI 40 mg twice daily x 1 month, then once daily Trial of carafate Tentative plan for OP EGD/Colon in [place] Thank you for allowing us to participate in the care of this patient. Please call with any acute changes, questions or concerns. Please see addendum below w ith additional recommendation from my supervising physician. Plan Discussed with attending. Can have clear liquids today. NPO after midnight. Please update H&H, BUN in the AM Admission and Anticipated Discharge Date Admission Date: August 05, 2022 Supervising Physician Co-Signing Physician Notes Attg add: I interviewed and examined pt, reviewed chart and labs. Pt woke with abrupt onset of abdominal pain and vomiting of BRB. Today, she feels well - she denies abdominal pain or vomiting, and is asking for food. Her bowel movements are loose, brown, and streaked with scant blood per her report. I reviewed her CT - food / fluid filled, hyperdense material in stomach. On exam, pt appears comfortable. Her abdomen is mildly distended in the epigastrium. Hematemesis -- Suspect acid-peptic injury, related to prednisone; it possible that pt has gastroparesis, related to narcotic use. Given stable hgb, stable VS, will defer EGD and treat empirically with PPI as above; can also use carafate. Clears for now and NPO after MN in case hgb drop. If hgb is ok tomorrow am, please resume diet. Can pursue outpt EGD with regular necktie maker. Subjective GI was asked to evaluate. Woke up in the middle of the night with epigastric abd pain Associated with nausea and one episode of emesis She notes this was all bright red blood. No coffee ground appearing emesis. Unsure if there were clots. Since episode she feels well from a GI standpoint. Is hungry and wants to eat. She notes chronic intermittent rectal bleeding limited to toilet tissue She has recurrent soni-anal abscess she follows with general surgery in [place] for. She has not had any issues with these in a few years. Did have a colonoscopy for this in the past and she is unsure if she was diagnosed with Crohn's but suggests she was lost to GI follow up Review of Systems Review of Systems: All systems reviewed & are unremarkable except as noted in HPI & below Physical Exam Constitutional: WD/WN, vitals as above Respiratory: normal respiratory effort Cardiovascular: Rate/Rhythm: regular rate Gastrointestinal (Abdomen): normal bowel sounds, soft, nontender, no hepatosplenomegaly Skin: no rashes, warm and dry Results & Data ([facility]) Vital Signs (Past 12 Hours) Vital Signs Temp Pulse Pulse Resp BP Pulse Ox O2 Del Method 08/07/22 08:00 Room Air 08/07/22 09:00 08/07/22 07:44 36.9 C 18 153/112 H 96 Room Air 08/07/22 04:25 37 C 93 H 19 162/109 H 100 Nasal Cannula 08/07/22 01:10 36.8 C 120 H 20 163/101 H 98 Room Air 08/06/22 23:26 109 H 20 165/117 H 97 Room Air 08/06/22 23:00 113 H O2 Del Method O2 Flow Rate O2 Flow Rate 08/07/22 08:00 08/07/22 09:00 Room Air 2 08/07/22 07:44 08/07/22 04:25 2 08/07/22 01:10 08/06/22 23:26 08/06/22 23:00 Laboratory Results 08/07/22 08/07/22 08/07/22 Range/Units 08:13 01:54 01:54 WBC (4.8-10.8) K/ul RBC (4.20-5.40) M/uL Hgb 11.1 L (12.0-16.0) g/dl Hct 34.0 L (37.0-47.0) % MCV (80.0-100.0) fL MCH (25.0-34.0) pg MCHC (32.0-36.0) g/dL RDW Std Deviation (36.4-46.3) fL RDW Coeff of López (11.5-14.5) % Plt Count (130-400) K/uL MPV (9.4-12.4) fL Absolute Nucleated RBC (0-0.12) K/uL Nucleated RBC % (auto) % Neutrophils % (Manual) % Lymphocytes % (Manual) % Monocytes % (Manual) % Metamyelocytes % (Man) % Myelocytes % (Man) % Neutrophils # (Manual) (1.40-6.50) K/uL Total Absolute Neuts (1.4-6.5) K/uL Lymphocytes # (Manual) (1.2-3.4) K/uL Total Abs Lymphocytes (1.2-3.4) K/uL Monocytes # (Manual) (0.11-0.59) K/uL Metamyelocytes # (Man) (0-0) K/uL Myelocytes # (Manual) (0-0) K/uL Polychromasia APTT 26.4 (21.0-31.0) Seconds PTT Ratio 1.0 Sodium 135 L (136-145) mmol/L Potassium 4.2 (3.5-5.1) mmol/L Chloride 102 (98-107) mmol/L Carbon Dioxide 26 (21-32) mmol/L Anion Gap 7 (3-11) BUN 15 (6-23) mg/dl Creatinine 0.98 (0.6-1.2) mg/dl Est Cr Clr Drug Dosing 119.6 ml/min Est GFR ( Amer) 85.4 ml/min Est GFR (Non-Af Amer) 73.7 ml/min BUN/Creatinine Ratio 15.3 (10-20) Glucose 256 H (70-99(Fasting)) mg/dl Calcium 8.8 (8.5-10.1) mg/dl Phosphorus 2.9 D (2.5-4.9) mg/dl Magnesium 1.5 L (1.7-2.4) mg/dl U Codeine Confrm GC/MS (<50) ng/mL Ur Morphine (GC/MS) (<50) ng/mL Ur Hydrocodone (GC/MS) (<50) ng/mL Ur Norhydrocodone (<50) ng/mL Ur Noroxycodone (<50) ng/mL Urine Oxycodone (GC/MS) (<50) ng/mL U Oxymorphone GC/MS (<50) ng/mL Ur Hydromorphone (GC/MS) (<50) ng/mL Drug Screen Comment 08/07/22 08/06/22 08/06/22 Range/Units 01:54 20:01 10:25 WBC 7.67 (4.8-10.8) K/ul RBC 3.45 L (4.20-5.40) M/uL Hgb 10.3 L (12.0-16.0) g/dl Hct 32.0 L (37.0-47.0) % MCV 92.8 (80.0-100.0) fL MCH 29.9 (25.0-34.0) pg MCHC 32.2 (32.0-36.0) g/dL RDW Std Deviation 61.1 H (36.4-46.3) fL RDW Coeff of López 18.0 H (11.5-14.5) % Plt Count 218 (130-400) K/uL MPV 9.6 (9.4-12.4) fL Absolute Nucleated RBC 0.02 (0-0.12) K/uL Nucleated RBC % (auto) 0.3 % Neutrophils % (Manual) 69 % Lymphocytes % (Manual) 26 % Monocytes % (Manual) 3 % Metamyelocytes % (Man) 1 % Myelocytes % (Man) 2 % Neutrophils # (Manual) 5.29 (1.40-6.50) K/uL Total Absolute Neuts 5.29 (1.4-6.5) K/uL Lymphocytes # (Manual) 1.99 (1.2-3.4) K/uL Total Abs Lymphocytes 1.99 (1.2-3.4) K/uL Monocytes # (Manual) 0.23 (0.11-0.59) K/uL Metamyelocytes # (Man) 0.08 H (0-0) K/uL Myelocytes # (Manual) 0.15 H (0-0) K/uL Polychromasia 1+ APTT 44.7 H 37.8 H (21.0-31.0) Seconds PTT Ratio 1.6 1.4 Sodium (136-145) mmol/L Potassium (3.5-5.1) mmol/L Chloride (98-107) mmol/L Carbon Dioxide (21-32) mmol/L Anion Gap (3-11) BUN (6-23) mg/dl Creatinine (0.6-1.2) mg/dl Est Cr Clr Drug Dosing ml/min Est GFR ( Amer) ml/min Est GFR (Non-Af Amer) ml/min BUN/Creatinine Ratio (10-20) Glucose (70-99(Fasting)) mg/dl Calcium (8.5-10.1) mg/dl Phosphorus (2.5-4.9) mg/dl Magnesium (1.7-2.4) mg/dl U Codeine Confrm GC/MS (<50) ng/mL Ur Morphine (GC/MS) (<50) ng/mL Ur Hydrocodone (GC/MS) (<50) ng/mL Ur Norhydrocodone (<50) ng/mL Ur Noroxycodone (<50) ng/mL Urine Oxycodone (GC/MS) (<50) ng/mL U Oxymorphone GC/MS (<50) ng/mL Ur Hydromorphone (GC/MS) (<50) ng/mL Drug Screen Comment 08/05/22 Range/Units 07:00 WBC (4.8-10.8) K/ul RBC (4.20-5.40) M/uL Hgb (12.0-16.0) g/dl Hct (37.0-47.0) % MCV (80.0-100.0) fL MCH (25.0-34.0) pg MCHC (32.0-36.0) g/dL RDW Std Deviation (36.4-46.3) fL RDW Coeff of López (11.5-14.5) % Plt Count (130-400) K/uL MPV (9.4-12.4) fL Absolute Nucleated RBC (0-0.12) K/uL Nucleated RBC % (auto) % Neutrophils % (Manual) % Lymphocytes % (Manual) % Monocytes % (Manual) % Metamyelocytes % (Man) % Myelocytes % (Man) % Neutrophils # (Manual) (1.40-6.50) K/uL Total Absolute Neuts (1.4-6.5) K/uL Lymphocytes # (Manual) (1.2-3.4) K/uL Total Abs Lymphocytes (1.2-3.4) K/uL Monocytes # (Manual) (0.11-0.59) K/uL Metamyelocytes # (Man) (0-0) K/uL Myelocytes # (Manual) (0-0) K/uL Polychromasia APTT (21.0-31.0) Seconds PTT Ratio Sodium (136-145) mmol/L Potassium (3.5-5.1) mmol/L Chloride (98-107) mmol/L Carbon Dioxide (21-32) mmol/L Anion Gap (3-11) BUN (6-23) mg/dl Creatinine (0.6-1.2) mg/dl Est Cr Clr Drug Dosing ml/min Est GFR ( Amer) ml/min Est GFR (Non-Af Amer) ml/min BUN/Creatinine Ratio (10-20) Glucose (70-99(Fasting)) mg/dl Calcium (8.5-10.1) mg/dl Phosphorus (2.5-4.9) mg/dl Magnesium (1.7-2.4) mg/dl U Codeine Confrm GC/MS NEGATIVE (<50) ng/mL Ur Morphine (GC/MS) NEGATIVE (<50) ng/mL Ur Hydrocodone (GC/MS) NEGATIVE (<50) ng/mL Ur Norhydrocodone NEGATIVE (<50) ng/mL Ur Noroxycodone NEGATIVE (<50) ng/mL Urine Oxycodone (GC/MS) NEGATIVE (<50) ng/mL U Oxymorphone GC/MS NEGATIVE (<50) ng/mL Ur Hydromorphone (GC/MS) 388 H (<50) ng/mL Drug Screen Comment SEE NOTE
[2022-08-07] MEDS ORDERED: OPTIRAY 320 500ml IV ONE (10:55)
--- NOTE | 2022-08-07 11:18 | CT Scan Report ---
CT ANGIOGRAPHY OF THE CHEST, PULMONARY EMBOLUS PROTOCOL CLINICAL HISTORY: r/o PE/lovenox noncompliance/ho sickle cell dz COMPARISON STUDY: Chest CT August 04, 2022. TECHNIQUE: Following IV administration of 115 mL of Optiray, helical axial images of the chest were o btained utilizing the pulmonary embolus protocol. Maximal intensity projections and sagittal and cor onal reformats were viewed on an independent 3D workstation. IV contrast was administered without co mplication. Automated exposure control was utilized for the study. A dose lowering technique was ut ilized adhering to the principles of ALARA. CT DOSE: 764.56 mGy.cm FINDINGS: No pulmonary emboli are identified although the segmental and subsegmental pulmonary arter ies are suboptimally assessed due to suboptimal opacification. Cardiac size is at the upper limits of normal. There is no pericardial effusion. No thoracic aortic dissection. There is no thoracic lympha denopathy. Bilateral breast implants are incidentally noted. There is no pneumothorax or pleural effu antoni. A small cluster of tree-in-bud nodules within the left lower lobe on axial image 72 of 256 has slightly decreased since CT of August 04, 2022. Minimal groundglass opacities with mosaic attenuati on within the lungs is noted. This probably reflects atelectasis. No acute fractures are identified w ithin the bony thorax. IMPRESSION: 1. No pulmonary emboli identified although segmental and subsegmental pulmonary arteries suboptimally assessed on this exam. 2. Small cluster tree-in-bud nodules within the left lower lobe, decreased since prior exam. This fav ors bronchiolitis. ACT 112: Negative or not required by law. Electronically signed by: Mateusz Beebe M.D. 08/07/2022 11:16 AM
[2022-08-07] MEDS: MAGNESIUM OXIDE 400 MG TAB PO SCH (11:54)
[2022-08-07] MEDS: LABETALOL HCL IV 5 MG/ML 20ML IV PRN (12:08)
[2022-08-07] MEDS ORDERED: hydrALAZINE HCL 25 MG TAB PO STA (13:43)
[2022-08-07 16:24] LABS: Hematocrit (blood only) 30.1 % (37.0-47.0)
[2022-08-07] MEDS: PANTOprazole 40 MG in SYRINGE 0 ML IV SCH (20:23)
[2022-08-07] MEDS ORDERED: METOCLOPRAMIDE HCL 5 MG/5 ML UDP PO SCH (21:00)
[2022-08-07 22:03] LABS: HIV-1 RNA Log Copies/mL 2.23 Log cps/mL
--- NOTE | 2022-08-07 22:31 | Ultrasound Report ---
Exam(s): US VENOUS BILATERAL LOWER EXTREMITIES EXAM: US Duplex Bilateral Lower Extremities Veins CLINICAL HISTORY: Reason for exam: r/o dvt. TECHNIQUE: Real-time duplex ultrasound scan of the bilateral lower extremity veins integrating B-mode two-dimensional vascular structure, Doppler spectral analysis, color flow Doppler imaging and compression. COMPARISON: None. FINDINGS: Right deep veins: Unremarkable. No DVT in the right common femoral, femoral, proximal deep femoral or popliteal veins. The veins demonstrate normal color flow, are normally compressible, with normal phasic flow and/or augmentation response. Right superficial veins: Unremarkable. No thrombus in the visualized right great saphenous vein. Left deep veins: Unremarkable. No DVT in the left common femoral, femoral, proximal deep femoral or popliteal veins. The veins demonstrate normal color flow, are normally compressible, with normal phasic flow and/or augmentation response. Left superficial veins: Unremarkable. No thrombus in the visualized left great saphenous vein. Soft tissues: No acute findings. No popliteal cyst. IMPRESSION: No ultrasonographic evidence of deep venous thrombosis involving the bilateral lower extremities. Electronically signed by: Heather Rico MD 08/07/22 22:30 PM
[2022-08-08] MEDS: HYDROmorphone INJ 1 MG/ML SYRINGE IV PRN ×7 (00:01→21:38)
[2022-08-08] MEDS: diphenhydrAMINE 50 MG/ML VIAL IV PRN ×4 (00:01→20:04)
[2022-08-08] MEDS ORDERED: HYDROmorphone INJ 1 MG/ML SYRINGE IV STA (04:47)
[2022-08-08] MEDS: [UNRECOGNIZED DRUG - OTHER] SCH ×3 (07:09→23:42)
[2022-08-08 07:27] LABS: Calcium 8.6 mg/dl (8.5-10.1); Magnesium 1.9 mg/dl (1.7-2.4); Potassium 3.8 mmol/L (3.5-5.1)
[2022-08-08 07:33] LABS: BUN Creatinine Ratio 15.6 (10-20); Creatinine Clr Calc Pharmacy 134.7 ml/min; Est GFR (African American) 94.7 ml/min; Est GFR (Non-African American) 81.7 ml/min; Phosphorus 2.6 mg/dl (2.5-4.9)
[2022-08-08 08:22] LABS: Hematocrit (blood only) 32.8 % (37.0-47.0); Hemoglobin 10.3 g/dl (12.0-16.0); Mean Corpuscular Hemoglobin 30.5 pg (25.0-34.0); Mean Corpuscular Hgb Conc 31.4 g/dL (32.0-36.0); Mean Platelet Volume 9.9 fL (9.4-12.4); Nucleated RBC # (auto) 0.16 K/uL (0-0.12); Platelet Count 265 K/uL (130-400); RDW Coefficient of Variation 18.9 % (11.5-14.5); RDW Standard Deviation 67.3 fL (36.4-46.3); Red Blood Count 3.38 M/uL (4.20-5.40); White Blood Count 7.92 K/ul (4.8-10.8)
--- NOTE | 2022-08-08 08:40 | Hospitalist Progress Note ---
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 Possible sick contacts in the family. Patient vaccinated against COVID. Patient is a resident of [place], [place] here for a visit due to family reasons. Had cough symptoms with congestion and clear sputum 10 days ago BLOW MOLDER and was evaluated in the ED 5 days ago at which point symptoms were attributed to bronchitis and sickle cell flare, chest x-ray was clear, patient was discharged home. Last attack was years ago as per patient. She is being managed for the following: Possible acute chest syndrome:Patient presents with chest pain/productive cough with streaks of blood with admitting CT -Bilateral tree in bud nodules are seen which likely represent infectious/inflammatory changes - acute chest syndrome was ruled out Acute painful episode History of sickle cell disease and sickle cell crisis Respiratory viral infection Likely bronchitis versus superimposed pneumonia Acute on chronic anemia:Multifactorial -sickle cell crisis versus pain versus GI bleed versus hemodialysis versus combination of all At admission pt was recommended transfer for tertiary care center ICU per oncall electron beam operator which patient declined. Admitting vitals: 36.4 C, 112 bpm, RR 20, 133/92 mmHg, on RA but required 2 L O2 transiently few hours later. Admitting EKG with sinus tachycardia. Admitting labs: Hemoglobin 11.4, folate and vitamin B12 WNL, UA-no UTI, MRSA negative,toxicology screen-positive opiates [no opiate prescription noted in PDMP system/pt is resident of [place]]/follow final results,CD4 count:absolute count 119 (low), %CD4 7 (L), absolute lymphocytes 1724 (wnl) respiratory viral panel -coronavirus [not COVID-19 infection] and parainfluenza 3 virus positive. 08/04 blood culture:Pending- NG 48 hrs Patient's baseline Hemoglobin around 13 per patient, admitting hemoglobin of 11.4, will continue to monitor H&H daily or as required. We will continue with analgesia, oxygen prn, incentive spirometer, antibiotics and transfusion if needed w/ hematology recs. D/w hematology oncology consultant 08/05 - didi deescalate to steven, downgrade to PCU, ORACLE ARCHITECT pump for pain, c/w IVF for 24 hours. Resume anticoagulation. Will use NSS , continue to hold aldactone for now. Hematology evaled, recommends CTA chest patient underwent CT PE protocol (08/07/2022), and no PE found. CT image also reviewed by pulmonary medicine doctor, and recommends no follow-up and no further recommendation. c/w home hydroxyurea dose for now. Pt would like to use heparin drip while in hospital and then go back on her lovenox on discharge. Heparin drip stopped overnight, due to episode of hematemesis. (Per previous hospitalist - discussed with the patient about her history of allergy to iodinated contrast in the past, she has gotten lips and throat swelling and anaphylaxis with the use of dye in the past. But she states that she has successfully received CTA chest with contrast with use of radiology protocol for allergy for contrast (steroids, benadryl; and epinephrine standby). And she is agreeable to a CTA chest with use of contrast with use of such protocol here. Same has been discussed with radiologist Dr. Sanchez and CTA chest has been ordered.) Situational hypertension: Secondary to acute illness. As needed blood pressure medications, continue home Aldactone when able and pain management. Painless lower GI bleed: GI evaled, likely hemorrhoidal bleed, appreciate recs. Recs are - GI as OP and dicyclomine 10mg before meals. Episode of hematemesis - CT abdomen obtained and reviewed by GI - Suspect acid- peptic injury, related to prednisone, it possible that pt has gastroparesis, related to narcotic use, IV PPI, carafate, monitor H&H, NPO after MN. Pt ate overnight despite being npo. No more episodes of nausea or vomiting. Other chronic medical conditions: Hypercoagulable state [factor V. Leiden deficiency + history of multiple PE and DVTs + NOAC failure]: Supposed to be on Lovenox, patient noncompliant with Lovenox recommendation from her electron beam operator due to abdominal bruising. Discussed about anticoagulation need, wants to use heparin drip while in the hospital and then will go back on Lovenox on discharge as per patient. Patient has a plan to get herself started on warfarin, she is awaiting PT/INR machine at home. CVA: Continue anticoagulation HIV: Continue home meds, patient requested to have somebody bring her HIV medication. Chronic pain: Continue home pain medications. DVT Px: On heparin drip- on hold now d/t episode of hematemesis, now on heparin subq Full code Admission and Anticipated Discharge Date Admission Date: August 05, 2022 Subjective Patient seen in follow-up of chest pain likely secondary to sickle cell crisis on the background of acute Patient sitting up in chair, on RA, in NAD. Seen by GI for hematemesis- was supposed to NPO after MN bu decided to eat snack from vending machine. No more nausea or vomiting CT PE obtained yesterday - negative LE doppler negative Still continues to have some chest discomfort. Reports some cough. However breathing comfortably on room air. Discussed with GI, discussed also with hematology, Dr. Guzman. Also tried to acquire medical records from patient's outpatient providers in [place], however this has been unsuccessful. Review of Systems Review of Systems: All systems reviewed & are unremarkable except as noted in Subjective Physical Exam Physical Exam: GENERAL: Alert an d oriented x3. NAD , on RA HEENT: No pallor, no icteru s. Pupils equal, round and reactive to light. Oral m ucosa moist. NECK: No JVD, no neck masses. HEART: S1 and S2 heard. Re gular rate and rhy thm/tachycardic. No murmur, no gall op. RESPIRATORY: Normal AP diameter . No accessory mu scle use. No whee zing, occasional c rackles. ABDOMEN: Soft, bowel sound s present, no dist ention. NEURO: No facial droop. Sp eech is clear. Ob eys simple command s. Moves extremit ies. EXTREMITIES: No edema, no eryt luna seen. Results & Data Results & Data ([facility]) Vital Signs (Past 12 Hours) Vital Signs Temp Pulse Pulse Pulse Resp BP Pulse Ox 08/08/22 07:47 36.5 C 110 H 17 134/102 H 97 08/08/22 03:19 36.8 C 114 H 20 137/113 H 95 08/07/22 23:45 110 H 08/07/22 22:49 36.5 C 107 H 20 158/101 H 98 O2 Del Method 08/08/22 07:47 Room Air 08/08/22 03:19 Room Air 08/07/22 23:45 08/07/22 22:49 Room Air Laboratory Results 08/08/22 08/08/22 08/07/22 Range/Units 06:14 06:14 15:56 WBC 7.92 (4.8-10.8) K/ul RBC 3.38 L (4.20-5.40) M/uL Hgb 10.3 L 10.0 L (12.0-16.0) g/dl Hct 32.8 L 30.1 L (37.0-47.0) % MCV 97.0 (80.0-100.0) fL MCH 30.5 (25.0-34.0) pg MCHC 31.4 L (32.0-36.0) g/dL RDW Std Deviation 67.3 H (36.4-46.3) fL RDW Coeff of López 18.9 H (11.5-14.5) % Plt Count 265 (130-400) K/uL MPV 9.9 (9.4-12.4) fL Absolute Nucleated RBC 0.16 H (0-0.12) K/uL Nucleated RBC % (auto) 2.0 % Sodium 137 (136-145) mmol/L Potassium 3.8 (3.5-5.1) mmol/L Chloride 105 (98-107) mmol/L Carbon Dioxide 26 (21-32) mmol/L Anion Gap 6 (3-11) BUN 14 (6-23) mg/dl Creatinine 0.90 (0.6-1.2) mg/dl Est Cr Clr Drug Dosing 134.7 ml/min Est GFR ( Amer) 94.7 ml/min Est GFR (Non-Af Amer) 81.7 ml/min BUN/Creatinine Ratio 15.6 (10-20) Glucose 102 H (70-99(Fasting)) mg/dl Calcium 8.6 (8.5-10.1) mg/dl Phosphorus 2.6 (2.5-4.9) mg/dl Magnesium 1.9 (1.7-2.4) mg/dl Absolute Lymphocytes (850-3900) cells/uL % CD4 Cells (30-61) % Absolute CD4 Count (490-1740) cells/uL HIV-1 RNA copies/mL Copies/mL HIV-1 RNA logcopies/mL Log cps/mL 08/07/22 08/05/22 Range/Units 08:13 07:34 WBC (4.8-10.8) K/ul RBC (4.20-5.40) M/uL Hgb 11.1 L (12.0-16.0) g/dl Hct 34.0 L (37.0-47.0) % MCV (80.0-100.0) fL MCH (25.0-34.0) pg MCHC (32.0-36.0) g/dL RDW Std Deviation (36.4-46.3) fL RDW Coeff of López (11.5-14.5) % Plt Count (130-400) K/uL MPV (9.4-12.4) fL Absolute Nucleated RBC (0-0.12) K/uL Nucleated RBC % (auto) % Sodium (136-145) mmol/L Potassium (3.5-5.1) mmol/L Chloride (98-107) mmol/L Carbon Dioxide (21-32) mmol/L Anion Gap (3-11) BUN (6-23) mg/dl Creatinine (0.6-1.2) mg/dl Est Cr Clr Drug Dosing ml/min Est GFR ( Amer) ml/min Est GFR (Non-Af Amer) ml/min BUN/Creatinine Ratio (10-20) Glucose (70-99(Fasting)) mg/dl Calcium (8.5-10.1) mg/dl Phosphorus (2.5-4.9) mg/dl Magnesium (1.7-2.4) mg/dl Absolute Lymphocytes 1724 (850-3900) cells/uL % CD4 Cells 7 L (30-61) % Absolute CD4 Count 119 L (490-1740) cells/uL HIV-1 RNA copies/mL 168 H Copies/mL HIV-1 RNA logcopies/mL 2.23 H Log cps/mL Medications Administered Current Inpatient Medications Acetaminophen (Acetaminophen 325 Mg Tab) 650 mg PO Q4H PRN PRN Reason: Pain or Fever Stop: 09/04/22 03:42 Benzonatate (Benzonatate 100 Mg Capsule) 100 mg PO TID PRN PRN Reason: Cough Stop: 09/04/22 02:02 Last Admin: 08/06/22 15:19 Dose: 100 mg Diphenhydramine HCl (Diphenhydramine 50 Mg/Ml Vial) 50 mg IV Q6H PRN PRN Reason: Itching Stop: 09/04/22 03:34 Last Admin: 08/08/22 06:22 Dose: 50 mg Doxycycline Hyclate (Doxycycline Hyclate 100 Mg Cap) 100 mg PO BID [facility] Stop: 08/12/22 20:59 Last Admin: 08/07/22 20:23 Dose: 100 mg Folic Acid (Folic Acid 1 Mg Tab) 5 mg PO DAILY [facility] Stop: 09/04/22 08:59 Last Admin: 08/07/22 08:12 Dose: 5 mg Hydromorphone HCl (Hydromorphone Inj 1 Mg/Ml Syringe) 1 mg IV Q3H PRN PRN Reason: Pain Stop: 08/19/22 02:02 Last Admin: 08/08/22 06:22 Dose: 1 mg Hydromorphone HCl (Hydromorphone Ux Visual Designer 30 Mg/30 Ml) 30 mg IV PRN PRN; Protocol PRN Reason: ORACLE ARCHITECT Pain Titration Stop: 08/19/22 09:59 Last Admin: 08/06/22 21:56 Dose: 30 mg Hydroxyurea (Hydroxyurea 500 Mg Cap) 500 mg PO BID [facility] Stop: 09/04/22 08:59 Last Admin: 08/07/22 20:23 Dose: 500 mg Promethazine HCl 12.5 mg/ (Sodium Chloride) 50.5 mls @ 202 mls/hr IV Q6H PRN PRN Reason: Nausea And Vomiting Stop: 09/04/22 02:02 Sodium Chloride (Nss 1000ml) 1,000 mls @ 15 mls/hr IV .Q24H [facility] Stop: 08/19/22 10:02 Last Admin: 08/07/22 11:53 Dose: 15 mls/hr Heparin Sodium/Dextrose (Heparin Sodium/Dextrose) 25,000 units in 500 mls @ 0 mls/hr IV .Q0M [facility]; Protocol Stop: 09/04/22 10:59 Last Titration: 08/07/22 01:10 Dose: 0 units/hr, 0 mls/hr Sodium Chloride (Nss 1000ml) 1,000 mls @ 70 mls/hr IV .[id number] [facility] Last Infusion: 08/07/22 17:47 Dose: Infused Pantoprazole Sodium 40 mg/ (Syringe) 10 mls @ 5 mls/min IV BID [facility] Stop: 09/06/22 20:59 Last Admin: 08/07/22 20:23 Dose: 5 mls/min Labetalol HCl (Labetalol Hcl Iv 5 Mg/Ml 20ml) 10 mg IV Q6H PRN PRN Reason: hypertension Stop: 09/04/22 13:09 Last Admin: 08/07/22 12:08 Dose: 10 mg Lorazepam (Lorazepam 0.5 Mg Tab) 0.5 mg PO TID PRN PRN Reason: Anxiety Stop: 09/04/22 02:02 Magnesium Oxide (Magnesium Oxide 400 Mg Tab) 400 mg PO QAM [facility] Stop: 09/06/22 09:14 Last Admin: 08/07/22 11:54 Dose: 400 mg Miscellaneous (Order Awaiting Action: Tapviysdw-[id number]-Yqalkvf Ala [Biktarvy] 50-200-25 Mg Tablet) 1 each N/A QS [facility] Stop: 09/04/22 07:59 Last Admin: 08/08/22 07:09 Dose: Not Given Naloxone HCl (Naloxone Hcl 0.4 Mg/1 Ml Vial/Carp) 0.1 mg IV Q5M PRN; Protocol PRN Reason: Oversedation/Resp Depression Stop: 08/19/22 09:59 Oxycodone HCl (Oxycodone Hcl Ir 5 Mg Tab (Immediate Release)) 5 - 10 mg PO QID PRN PRN Reason: Pain Stop: 08/19/22 02:02 Last Admin: 08/06/22 13:15 Dose: 10 mg
--- NOTE | 2022-08-08 09:09 | Gastroenterology Progress Note ---
Date of Service August 08, 2022 Assessment & Plan (1) Abdominal pain: Plan: 37 year old female admitted with sickle cell crisis, parainfluenza, GI asked to evaluate for epigastric pain followed by episode of hematemesis last evening. Heparin gtt was stopped Vitals stable, HGB stable (improved from admission HGB) w/o BUN elevation. Stat CT last evening with debris in stomach but no report of acute GI findings. Remained stable overnight, HGB stable, BUN non-elevated. May resume previous diet No current plan for endoscopic evaluation Trend H&H Monitor and document GI output Transfuse per primary service PO PPI 40 mg twice daily x 2 weeks, then once dc Tentative plan for OP EGD/Colon in [place] Will sign off. Thank you for allowing us to participate in the care of this patient. Please call with any acute changes, questions or concerns. Please see addendum below with additional recommendation from my supervising physician. Admission and Anticipated Discharge Date Admission Date: August 05, 2022 Supervising Physician Co-Signing Physician Notes Attg add: I interviewed and examined pt, reviewed chart and labs. She is tolerating PO and without evidence of clinically significant GIB - stable hgb, stable VS. Plan as above. Subjective Pt was seen and evaluated. chart reviewed. Frustrated with NPO status. Ate overnight. This AM feels well. No abd pain. No nausea, vomiting. Denies black or bloody stools. HGB this AM stable. No BUN elevation. Review of Systems Review of Systems: All systems reviewed & are unremarkable except as noted in HPI & below Physical Exam Constitutional: WD/WN, vitals as above Respiratory: normal respiratory effort Gastrointestinal (Abdomen): Percussion/Palpation: abdomen nontender Skin: no rashes, warm and dry Results & Data ([facility]) Vital Signs (Past 12 Hours) Vital Signs Temp Pulse Pulse Pulse Resp BP Pulse Ox 08/08/22 07:47 36.5 C 110 H 17 134/102 H 97 08/08/22 03:19 36.8 C 114 H 20 137/113 H 95 08/07/22 23:45 110 H 08/07/22 22:49 36.5 C 107 H 20 158/101 H 98 O2 Del Method 08/08/22 07:47 Room Air 08/08/22 03:19 Room Air 08/07/22 23:45 08/07/22 22:49 Room Air Laboratory Results 08/08/22 08/08/22 08/07/22 Range/Units 06:14 06:14 15:56 WBC 7.92 (4.8-10.8) K/ul RBC 3.38 L (4.20-5.40) M/uL Hgb 10.3 L 10.0 L (12.0-16.0) g/dl Hct 32.8 L 30.1 L (37.0-47.0) % MCV 97.0 (80.0-100.0) fL MCH 30.5 (25.0-34.0) pg MCHC 31.4 L (32.0-36.0) g/dL RDW Std Deviation 67.3 H (36.4-46.3) fL RDW Coeff of López 18.9 H (11.5-14.5) % Plt Count 265 (130-400) K/uL MPV 9.9 (9.4-12.4) fL Absolute Nucleated RBC 0.16 H (0-0.12) K/uL Nucleated RBC % (auto) 2.0 % Sodium 137 (136-145) mmol/L Potassium 3.8 (3.5-5.1) mmol/L Chloride 105 (98-107) mmol/L Carbon Dioxide 26 (21-32) mmol/L Anion Gap 6 (3-11) BUN 14 (6-23) mg/dl Creatinine 0.90 (0.6-1.2) mg/dl Est Cr Clr Drug Dosing 134.7 ml/min Est GFR ( Amer) 94.7 ml/min Est GFR (Non-Af Amer) 81.7 ml/min BUN/Creatinine Ratio 15.6 (10-20) Glucose 102 H (70-99(Fasting)) mg/dl Calcium 8.6 (8.5-10.1) mg/dl Phosphorus 2.6 (2.5-4.9) mg/dl Magnesium 1.9 (1.7-2.4) mg/dl Absolute Lymphocytes (850-3900) cells/uL % CD4 Cells (30-61) % Absolute CD4 Count (490-1740) cells/uL HIV-1 RNA copies/mL Copies/mL HIV-1 RNA logcopies/mL Log cps/mL 08/05/22 Range/Units 07:34 WBC (4.8-10.8) K/ul RBC (4.20-5.40) M/uL Hgb (12.0-16.0) g/dl Hct (37.0-47.0) % MCV (80.0-100.0) fL MCH (25.0-34.0) pg MCHC (32.0-36.0) g/dL RDW Std Deviation (36.4-46.3) fL RDW Coeff of López (11.5-14.5) % Plt Count (130-400) K/uL MPV (9.4-12.4) fL Absolute Nucleated RBC (0-0.12) K/uL Nucleated RBC % (auto) % Sodium (136-145) mmol/L Potassium (3.5-5.1) mmol/L Chloride (98-107) mmol/L Carbon Dioxide (21-32) mmol/L Anion Gap (3-11) BUN (6-23) mg/dl Creatinine (0.6-1.2) mg/dl Est Cr Clr Drug Dosing ml/min Est GFR ( Amer) ml/min Est GFR (Non-Af Amer) ml/min BUN/Creatinine Ratio (10-20) Glucose (70-99(Fasting)) mg/dl Calcium (8.5-10.1) mg/dl Phosphorus (2.5-4.9) mg/dl Magnesium (1.7-2.4) mg/dl Absolute Lymphocytes 1724 (850-3900) cells/uL % CD4 Cells 7 L (30-61) % Absolute CD4 Count 119 L (490-1740) cells/uL HIV-1 RNA copies/mL 168 H Copies/mL HIV-1 RNA logcopies/mL 2.23 H Log cps/mL
[2022-08-08] MEDS ORDERED: SPIRONOLACTONE 25 MG TAB PO SCH (09:15)
[2022-08-08] MEDS: MAGNESIUM OXIDE 400 MG TAB PO SCH (09:50)
[2022-08-08] MEDS: HYDROXYUREA 500 MG CAP PO SCH ×2 (09:50→21:32)
[2022-08-08] MEDS: FOLIC ACID 1 MG TAB PO SCH (09:52)
[2022-08-08] MEDS: DOXYCYCLINE HYCLATE 100 MG CAP PO SCH (09:52)
[2022-08-08] MEDS: PANTOprazole 40 MG in SYRINGE 0 ML IV SCH (09:55)
[2022-08-08] MEDS ORDERED: SPIRONOLACTONE 25 MG TAB PO ONE (12:30)
[2022-08-08] MEDS: oxyCODONE HCL IR 5 MG TAB (IMMEDIATE RELEASE) PO PRN (16:18)
[2022-08-08] MEDS: SPIRONOLACTONE 100 MG TAB PO SCH (16:18)
[2022-08-08] MEDS: cefTRIAXone SODIUM 1,000 MG in DEXTROSE 5% AD-VAN 50 ML IV SCH (17:24)
[2022-08-08] MEDS: SUCRALFATE 1 GM/10 ML UDC PO SCH ×2 (18:01→21:35)
[2022-08-08] MEDS: DOXYCYCLINE HYCLATE 100 MG in DEXTROSE 5% 100 ML IV SCH (18:01)
[2022-08-08] MEDS: SODIUM CHLORIDE 0.9% 1000ML 1,000 ML IV SCH (18:06)
[2022-08-08] MEDS: BENZONATATE 100 MG CAPSULE PO PRN (20:04)
--- NOTE | 2022-08-08 20:19 | Progress Note ---
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 -No evidence of sickle cell crisis at this time given normal bilirubin, reticulocyte count on admission. Also does not meet criteria for acute chest syndrome. 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 Since records have been difficult to obtain, Will obtain hemoglobin electrophoresis/sickle test -Regarding history of DVT/PE, can resume Lovenox if no evidence of bleeding since she reports history of DOAC failure. 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 Please call if you have any questions Admission and Anticipated Discharge Date Admission Date: August 05, 2022 Subjective Reported episode of hematemesis. Seen by Bessie who started her on protonix 40mg po BID. Hemoglobin has been stable so no plan for EGD. Heparin restarted. Results & Data ([facility]) Vital Signs (Past 12 Hours) Vital Signs Temp Pulse Pulse Pulse Resp BP Pulse Ox 08/08/22 20:02 37.0 C 110 H 18 142/107 H 98 08/08/22 18:48 124 H 08/08/22 15:59 36.8 C 118 H 20 151/105 H 99 08/08/22 11:31 36.6 C 106 H 18 158/106 H 95 08/08/22 11:03 109 H O2 Del Method 08/08/22 20:02 Room Air 08/08/22 18:48 08/08/22 15:59 Room Air 08/08/22 11:31 Room Air 08/08/22 11:03
[2022-08-08] MEDS ORDERED: cefUROXime axetil 500 MG TAB PO SCH (21:00)
[2022-08-08] MEDS: PANTOprazole 40 MG TAB PO SCH (21:32)
[2022-08-08] MEDS: HEPARIN SOD 5,000 UNIT/0.5 ML VIAL SQ SCH (21:32)
[2022-08-08] MEDS ORDERED: SODIUM CHLORIDE 0.9% 1000ML 1,000 ML IV SCH (23:45)
[2022-08-08] MEDS ORDERED: HYDROmorphone PCA 30 MG/30 ML IV PRN (23:46)
[2022-08-08] MEDS ORDERED: NALOXONE HCL 0.4 MG/1 ML VIAL/CARP IV PRN (23:46)
[2022-08-09] MEDS: HYDROmorphone INJ 1 MG/ML SYRINGE IV PRN ×6 (00:49→23:33)
[2022-08-09] MEDS: diphenhydrAMINE 50 MG/ML VIAL IV PRN ×2 (03:40→17:28)
[2022-08-09] MEDS: DOXYCYCLINE HYCLATE 100 MG in DEXTROSE 5% 100 ML IV SCH ×2 (05:33→23:12)
[2022-08-09] MEDS: HEPARIN SOD 5,000 UNIT/0.5 ML VIAL SQ SCH (07:31)
[2022-08-09] MEDS: PANTOprazole 40 MG TAB PO SCH ×2 (07:32→20:53)
[2022-08-09] MEDS: HYDROXYUREA 500 MG CAP PO SCH ×2 (07:32→20:52)
[2022-08-09] MEDS: SPIRONOLACTONE 100 MG TAB PO SCH ×2 (07:33→16:46)
[2022-08-09] MEDS: FOLIC ACID 1 MG TAB PO SCH (07:33)
[2022-08-09] MEDS: MAGNESIUM OXIDE 400 MG TAB PO SCH (07:33)
[2022-08-09] MEDS: [UNRECOGNIZED DRUG - OTHER] SCH ×3 (07:34→23:11)
[2022-08-09] MEDS: SUCRALFATE 1 GM/10 ML UDC PO SCH ×5 (07:36→20:57)
--- NOTE | 2022-08-09 08:59 | Hospitalist Progress Note ---
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 Possible sick contacts in the family. Patient vaccinated against COVID. Patient is a resident of [place], [place] here for a visit due to family reasons. Had cough symptoms with congestion and clear sputum 10 days ago DISTRIBUTOR SALES CONSULTANT and was evaluated in the ED 5 days ago at which point symptoms were attributed to bronchitis and sickle cell flare, chest x-ray was clear, patient was discharged home. Last attack was years ago as per patient. She is being managed for the following: Possible acute chest syndrome:Patient presents with chest pain/productive cough with streaks of blood with admitting CT -Bilateral tree in bud nodules are seen which likely represent infectious/inflammatory changes - acute chest syndrome was ruled out Acute painful episode History of sickle cell disease and sickle cell crisis Respiratory viral infection Likely bronchitis versus superimposed pneumonia Acute on chronic anemia:Multifactorial -sickle cell crisis versus pain versus GI bleed versus hemodialysis versus combination of all At admission pt was recommended transfer for tertiary care center ICU per oncall cask maker which patient declined. Admitting vitals: 36.4 C, 112 bpm, RR 20, 133/92 mmHg, on RA but required 2 L O2 transiently few hours later. Admitting EKG with sinus tachycardia. Admitting labs: Hemoglobin 11.4, folate and vitamin B12 WNL, UA-no UTI, MRSA negative,toxicology screen-positive opiates [no opiate prescription noted in PDMP system/pt is resident of [place]]/follow final results,CD4 count:absolute count 119 (low), %CD4 7 (L), absolute lymphocytes 1724 (wnl) respiratory viral panel -coronavirus [not COVID-19 infection] and parainfluenza 3 virus positive. 08/04 blood culture:Pending- NG 48 hrs Patient's baseline Hemoglobin around 13 per patient, admitting hemoglobin of 11.4, will continue to monitor H&H daily or as required. We will continue with analgesia, oxygen prn, incentive spirometer, antibiotics and transfusion if needed w/ hematology recs. D/w last cleaner 08/05 - didi chne to steven, downgrade to PCU, HEAD SILVERMAN pump for pain, c/w IVF for 24 hours. Resume anticoagulation. Hematology evaled, recommends CTA chest patient underwent CT PE protocol (08/07/2022), and no PE found. CT image also reviewed by pulmonary medicine doctor, and recommends no follow-up and no further recommendation. c/w home hydroxyurea dose for now. Pt would like to use heparin drip while in hospital and then go back on her lovenox on discharge. Heparin drip stopped overnight, due to episode of hematemesis. Pt reported pain in LEs - doppler obtained and negative for DVT D/w the pt to stop HEAD SILVERMAN pump - this was discontinued however restarted overnight again by pt's request. Pt now has pain in UEs and tenderness at IV site. IV site removed and doppler ordered - pt refused the study. Pain management consulted. Pt agreeable to another IV site at diff arm, plan to restart heparin drip and covert to coumadin (08/09/2022) Situational hypertension: Secondary to acute illness. As needed blood pressure medications, continue home Aldactone and pain management. Painless lower GI bleed: GI evaled, likely hemorrhoidal bleed, appreciate recs. Recs are - GI as OP and dicyclomine 10mg before meals. Episode of hematemesis - CT abdomen obtained and reviewed by GI - Suspect acid- peptic injury, related to prednisone, it possible that pt has gastroparesis, related to narcotic use, IV PPI, carafate, monitor H&H, NPO after MN. Pt ate overnight despite being npo. No more episodes of nausea or vomiting. Other chronic medical conditions: Hypercoagulable state [factor V. Leiden deficiency + history of multiple PE and DVTs + NOAC failure]: Supposed to be on Lovenox, patient noncompliant with Lovenox recommendation from her cask maker due to abdominal bruising. Discussed about anticoagulation need, wants to use heparin drip while in the hospital and then will go back on Lovenox on discharge as per patient. Patient has a plan to get herself started on warfarin, she is awaiting PT/INR machine at home. Restarted IV heparin as above (08/09/22) CVA: Continue anticoagulation HIV: Continue home meds, patient requested to have somebody bring her HIV medication. Chronic pain: Continue home pain medications. DVT Px: heparin drip restarted Full code Admission and Anticipated Discharge Date Admission Date: August 05, 2022 Subjective Patient seen in follow-up of chest pain likely secondary pneumonia, initially concern due to sickle cell crisis on the background of acute Patient sitting up in bed on RA, in NAD. No more nausea or vomiting CT PE - negative LE doppler negative Today reports pain in upper extremities, LUE with some edema and tenderness to palpation at IV site. IV site removed UE b/l doppler ordered - pt refused Pt requests IV pain medications. Pt does not take any PO medications ordered. Pain management consulted. Pt agreed to get IV in the other extremity and start IV heparin again with plan to transition to coumadin. Pt breathing comfortably on room air. Discussed with hematology, Dr. Guzman. Also tried to acquire medical records from patient's outpatient providers in [place], however this has been unsuccessful. Review of Systems Review of Systems: All systems reviewed & are unremarkable except as noted in Subjective Physical Exam Physical Exam: GENERAL: Alert an d oriented x3. NAD , on RA HEENT: No pallor, no icteru s. Pupils equal, round and reactive to light. Oral m ucosa moist. NECK: No JVD, no neck masses. HEART: S1 and S2 heard. Re gular rate and rhy thm/tachycardic. No murmur, no gall op. RESPIRATORY: Normal AP diameter . No accessory mu scle use. No whee zing, occasional c rackles. ABDOMEN: Soft, bowel sound s present, no dist ention. NEURO: No facial droop. Sp eech is clear. Ob eys simple command s. Moves extremit ies. EXTREMITIES: Mild edema at LUE at IV site and te nderness to palpat ion Results & Data Results & Data ([facility]) Vital Signs (Past 12 Hours) Vital Signs Temp Pulse Pulse Pulse Resp BP Pulse Ox 08/09/22 08:16 36.9 C 120 H 18 140/107 H 97 08/09/22 04:48 36.6 C 123 H 20 153/104 H 99 08/09/22 00:15 36.7 C 115 H 20 144/99 H 98 08/08/22 23:19 112 H O2 Del Method 08/09/22 08:16 Room Air 08/09/22 04:48 Room Air 08/09/22 00:15 Room Air 08/08/22 23:19
[2022-08-09] MEDS: SODIUM CHLORIDE 0.9% 1000ML 1,000 ML IV SCH (12:07)
--- NOTE | 2022-08-09 14:46 | Pain Management Consultation ---
Date of Consultation August 09, 2022 Assessment & Plan (1) Sickle cell pain crisis: (2) Upper extremity pain: Plan 1. Patient reported infiltration of left antecubital IV site which was removed. She has no IV access at this time to receive IV pain medications. Patient reports oral opiates are ineffective. Discussion with Dr. Levy regarding treatment of her sickle cell pain crisis and opiate therapy. Patient with left upper extremity greater than right upper extremity pain complaint with some swelling status post IV removal but patient has deferred ultrasound of the upper extremity at this time. Ultimately decision making regarding resuming IV access will be left to Dr. Levy. Would resume IV hydromorphone for as needed breakthrough pain should this occur. 2. PDMP was reviewed but unable to determine whether patient truly utilizes opiate therapy in the outpatient setting. It appears that [place] does not participate with PDMP reporting. There is no available records from any other state which does participate with PDMP upon review of the patient's current name and former name (reportedly Mode Rodriguez)--relating to transgender transitioning. Would recommend limited oral opiate allotment for discharge planning at this time. 3. Pain service has nothing interventional to offer the patient 4. 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 Lavell valadez is reportedly a resident of [place] who has been in town due to a in the family. She reports frequent episodes of sickle cell crisis in the past which responded to IV fluids and IV opiate therapy. She does report use of opiate therapy in the outpatient setting with OxyContin for as needed breakthrough pain associated with her sickle cell crisis. Patient has been receiving IV Dilaudid upon this admission through [facility] with moderate benefit. She reports IV was removed further today due to "infiltration". She has had swelling of the left greater than right arm and is describing an intense pressure of the entire arm. This is her primary pain generator at this time rating her pain a 10/10. She is further describing pain in the upper abdomen and left flank region associated with her "spleen pain" as well as bilateral hip region pain. She reportedly deferred upper extremity Doppler studies due to her complaints of pain and swelling. There has not been a decision regarding res uming IV access at this time. She reports oral opiate therapy is without benefit and she has been deferring use of oral opiates. There is report by nursing staff that she has requested to be discharged and that she can go home without pain medications. Plan of care discussed with Dr. Hopper Pain Assessment Full Body Front + Back: 1. Entire left upper extremity-pressure with swelling 2. Entire right upper extremity-pressure sensation 3. Left upper abdominal region-"spleen pain" 4. Left flank pain-"spleen pain" 5. Right hip pain 6. Left hip pain Pain scale - at its best (0-10): 2 Pain scale - at its worst (0-10): 10 Allergies Allergy/AdvReac Type Severity Reaction Status Date / Time gadoversetamide Allergy Severe Anaphylaxis Verified 08/05/22 02:25 Iodinated Contrast Media Allergy Severe Anaphylaxis Verified 08/05/22 02:25 shellfish derived Allergy Severe Anaphylaxis Verified 08/05/22 02:22 ketorolac [From Toradol] Allergy Hives Verified 08/05/22 02:22 NSAIDS (Non-Steroidal Allergy Hives Verified 08/05/22 02:22 Anti-Inflamma Home Medications Medication Instructions Recorded Confirmed Type Hormone Injections 1 dose INJ .[id number] 08/05/22 08/05/22 History bictegravir 50 mg-emtricitabine 1 tab PO DAILY 08/05/22 08/05/22 History 200 mg-tenofovir alafenam 25 mg tablet (Biktarvy) folic acid 1 mg tablet 5 mg PO DAILY 08/05/22 08/05/22 History hydroxyurea 500 mg capsule 500 mg PO BID 08/05/22 08/05/22 History oxycodone 20 mg tablet,crush 20 mg PO Q12H PRN Pain 08/05/22 08/05/22 History resistant,extended release 12 hr (OxyContin) oxycodone 5 mg tablet 5 mg PO Q4H PRN Pain 08/05/22 08/05/22 History spironolactone 100 mg tablet 100 mg PO BID 08/05/22 08/05/22 History Pain History Pain Intensity Pain scale - at its best (0-10): 2 Pain scale - at its worst (0-10): 10 Patient History Medical History (Updated 08/09/22 @ 14:50 by Wu Curtis PA-C) Factor V Leiden History of pulmonary embolism Sickle cell disease Upper extremity pain Social History Smoking Status: Never smoker Hx Alcohol Use: Yes Alcohol type: wine Hx Substance Use: No Preferred Language: Romanian Communication Ability: Effective 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 Patient extremely slow to answer questions and evasive at times. Cognition intact. Head: Normocephalic and atraumatic. ENT: No evidence of nasal or oral mucosal lesions. Mucous membranes are moist. Eyes: Pupils equal round reactive to light. Neck: Supple without adenopathy and full range of motion. Patient tender in the mid trapezius musculature bilaterally. Nontender over the cervical midline or paravertebral region. Chest: Minimally tender to palpation of the costosternal junction bilaterally. Nontender with AP and lateral compression. Upper extremities: Patient has generalized tenderness of the bilateral upper extremities to palpation with slight hyperalgesia left greater than right-sided. There appears to be some generalized edema of the entire left upper extremity compared to the right. No evidence of erythema or streaking. Pulses are 2+ and equal bilaterally. Sensation intact distally without deficit. Abdomen: Soft and nondistended. No organomegaly. Bowel sounds active. Slightly tender in the left upper quadrant to palpation. Back/spine: No focal flank tenderness. Nontender over the midline. No focal facet or paravertebral tenderness. Lower extremities: Sensation intact. Strength testing 5/5 dorsi and plantarflexion. Neurologic: Cranial nerves grossly intact. Ambulatory function--without limitation of movement patient was witnessed crawling on the bed upon in the room. Results ([facility]) Diagnostic Review CT Findings: [facility], [place] [phone] CT Scan Report Patient:JEFF AKINS Admit Date:08/05/22 MR#:[id number] Address1:[address] Acct ID:[id number] Address2: Date:1985 [facility] Zip:[place] [address] Age:37 Location:2E Sex:F Room/Bed:[facility] Att Phy:Jose Levy MD Diagnosis:HTN URG, CAP, HEMOPTYSIS Ofelia Phy:PCP,NO Service Date:08/07/22 Fam Phy: Interpreting Phy:Mateusz Beebe MDAdmit Phy:Artemio Becerril MD Ordering Phy:Sidra Peralta MD cc: ~ CT ANGIOGRAPHY OF THE CHEST, PULMONARY EMBOLUS PROTOCOL CLINICAL HISTORY: r/o PE/lovenox noncompliance/ho sickle cell dz COMPARISON STUDY: Chest CT August 04, 2022. TECHNIQUE: Following IV administration of 115 mL of Optiray, helical axial images of the chest were obtained utilizing the pulmonary embolus protocol. Maximal intensity projections and sagittal and coronal reformats were viewed on an independent 3D workstation. IV contrast was administered without complication. Automated exposure control was utilized for the study. A dose lowering technique was utilized adhering to the principles of ALARA. CT DOSE: 764.56 mGy.cm FINDINGS: No pulmonary emboli are identified although the segmental and subsegmental pulmonary arteries are suboptimally assessed due to suboptimal opacification. Cardiac size is at the upper limits of normal. There is no p ericardial effusion. No thoracic aortic dissection. There is no thoracic lymphadenopathy. Bilateral breast implants are incidentally noted. There is no pneumothorax or pleural effusion. A small cluster of tree-in-bud nodules within the left lower lobe on axial image 72 of 256 has slightly decreased since CT of August 04, 2022. Minimal groundglass opacities with mosaic attenuation within the lungs is noted. This probably reflects atelectasis. No acute fractures are identified within the bony thorax. IMPRESSION: 1. No pulmonary emboli identified although segmental and subsegmental pulmonary arteries suboptimally assessed on this exam. 2. Small cluster tree-in-bud nodules within the left lower lobe, decreased since prior exam. This favors bronchiolitis. ACT 112: Negative or not required by law. Electronically signed by: Mateusz Beebe M.D. 08/07/2022 11:16 AM Dictated:08/07/22 1109 Transcribed: 08/07/22 1109 [place], [place] [phone] CT Scan Report Patient:JEFF AKINS Admit Date:08/05/22 MR#:[id number] Address1:[address] Acct ID:[id number] Address2: Date:1985 [facility] Zip:[place] [address] Age:37 Location: Sex:F Room/Bed:[facility] Att Phy:Jose Levy MD Diagnosis:HTN URG, CAP, HEMOPTYSIS Ofelia Phy:PCP,NO Service Date:08/07/22 Fam Phy: Interpreting Phy:Mohinder HigginsAdmit Phy:Artemio Becerril MD Ordering Phy:Artemio Becerril MD cc: ~ ABDOMEN AND PELVIS CT WITHOUT CONTRAST CT DOSE: 1092.50 mGycm HISTORY: Acute upper GI bleed with generalized abdominal pain ugib, pain TECHNIQUE: Multiaxial CT images of the abdomen and pelvis were performed without contrast. A dose lowering technique was utilized adhering to the principles of ALARA. COMPARISON STUDY: Chest CT 08/04/2022 FINDINGS: Partially imaged breast implants. Subsegmental tree-in-bud nodules within the left lower lobe are redemonstrated, likely infectious or inflammatory. No pneumatosis or pneumoperitoneum. The unenhanced spleen, pancreas, gallbladder, adrenal glands and liver appear unremarkable. Unremarkable kidneys. No urolith or hydronephrosis. Unremarkable urinary bladder. Uterus appears surgically absent. No adnexal mass lesions identified. Aorta and IVC are unremarkable. No lymphadenopathy. Debris-filled stomach suggestive of recent meal with mixed attenuating material. No bowel obstruction or bowel wall thickening. Mild to moderate colonic fecal retention. Surgical suture material adjacent to the cecum suggestive of appe ndectomy. Unremarkable soft tissues. 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 No acute fracture. IMPRESSION: 1. No acute intra-abdominal or intrapelvic abnormality identified. 2. No bowel obstruction or bowel wall thickening. 3. 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 4. Subsegmental tree-in-bud nodules of the left lower lobe are suggestive of a mild bronchiolitis. ACT 112: Negative or not required by law. The above report was generated using voice recognition software. It may contain grammatical, syntax or spelling errors. Electronically signed by: Mohinder Higgins M.D. 08/07/2022 7:18 AM Dictated:08/07/22705 Transcribed: 08/07/22705 Other Findings: [facility], [place] [phone] Ultrasound Report Patient:JEFF AKINS Admit Date:08/05/22 MR#:[id number] Address1:[address] [facility] Acct ID:[id number] Address2: Date:1985 [facility] Zip:[place] [address] Age:37 Location: Sex:F Room/Bed:[facility] Att Phy:Jose Levy MD Diagnosis:HTN URG, CAP, HEMOPTYSIS Ofelia Phy:PCP,NO Service Date:08/07/22 Fam Phy: Interpreting Phy:Heather Rico MDAdmit Phy:Artemio Becerril MD Ordering Phy:Jose Levy MD cc: ~ Exam(s): US VENOUS BILATERAL LOWER EXTREMITIES EXAM: US Duplex Bilateral Lower Extremities Veins CLINICAL HISTORY: Reason for exam: r/o dvt. TECHNIQUE: Real-time duplex ultrasound scan of the bilateral lower extremity veins integrating B-mode two-dimensional vascular structure, Doppler spectral analysis, color flow Doppler imaging and compression. COMPARISON: None. FINDINGS: Right deep veins: Unremarkable. No DVT in the right common femoral, femoral, proximal deep femoral or popliteal veins. The veins demonstrate normal color flow, are normally compressible, with normal phasic flow and/or augmentation response. Right superficial veins: Unremarkable. No thrombus in the visualized right great saphenous vein. Left deep veins: Unremarkable. No DVT in the left common femoral, femoral, proximal deep femoral or popliteal veins. The veins demonstrate normal color flow, are normally compressible, with normal phasic flow and/or augmentation response. Left superficial veins: Unremarkable. No thrombus in the visualized left great saphenous vein. Soft tissues: No acute findings. No popliteal cyst. IMPRESSION: No ultrasonographic evidence of deep venous thrombosis involving the bilateral lower extremities. Electronically signed by: Heather Rico MD 08/07/22 22:30 PM Dictated:08/07/222229 Transcribed: 08/07/222229
[2022-08-09] MEDS: cefTRIAXone SODIUM 1,000 MG in DEXTROSE 5% AD-VAN 50 ML IV SCH (16:47)
[2022-08-09] MEDS ORDERED: Heparin IV Adult Wt-Based Low-Dose *NO* Bolus Protocol IV SCH (17:12)
[2022-08-09] MEDS ORDERED: HEPARIN SODIUM/DEXTROSE 25,000 UNITS/500 ML BAG IV SCH (18:00)
[2022-08-09] MEDS: oxyCODONE HCL IR 5 MG TAB (IMMEDIATE RELEASE) PO PRN (18:20)
[2022-08-09] MEDS ORDERED: HYDROmorphone INJ 1 MG/ML SYRINGE IV STA (21:50)
[2022-08-09] MEDS ORDERED: DOXYCYCLINE HYCLATE 100 MG CAP PO STA (23:08)
[2022-08-10] MEDS: diphenhydrAMINE 50 MG/ML VIAL IV PRN ×3 (01:04→17:50)
[2022-08-10] MEDS: HYDROmorphone INJ 1 MG/ML SYRINGE IV PRN ×6 (02:35→21:35)
--- NOTE | 2022-08-10 02:42 | Ultrasound Report ---
Exam(s): US VENOUS BILATERAL UPPER EXTREMITIES EXAM: US Duplex Bilateral Upper Extremities Veins CLINICAL HISTORY: Reason for exam: b /l arm pain. hx of dvt. rule out dvt. TECHNIQUE: Real-time duplex ultrasound scan of the bilateral upper extremity veins integrating B-mode two-dimensional vascular structure, Doppler spectral analysis, color flow Doppler imaging and compression. COMPARISON: No relevant prior studies available. FINDINGS: Limited evaluation. Per technologist notes, patient combative and uncooperative. Patient refused part of the exam. Right upper extremity: Internal jugular vein is compressible and patent. Subclavian vein appears patent. Cephalic vein at the confluence with the subclavian vein appears patent. Patient refused the rest of the exam. Left upper extremity: not evaluated, patient refused. IMPRESSION: Very limited evaluation as above. Partially visualized right upper extremity veins are patent. Electronically signed by: Connor Au M.D. 08/10/22 02:41 AM
[2022-08-10] MEDS: PANTOprazole 40 MG TAB PO SCH ×2 (09:21→20:20)
[2022-08-10] MEDS: FOLIC ACID 1 MG TAB PO SCH (09:21)
[2022-08-10] MEDS: SPIRONOLACTONE 100 MG TAB PO SCH ×2 (09:21→17:16)
[2022-08-10] MEDS: DOXYCYCLINE HYCLATE 100 MG CAP PO SCH ×2 (09:21→20:20)
[2022-08-10] MEDS: MAGNESIUM OXIDE 400 MG TAB PO SCH (09:21)
[2022-08-10] MEDS: SUCRALFATE 1 GM/10 ML UDC PO SCH ×4 (09:21→20:19)
[2022-08-10] MEDS: HYDROXYUREA 500 MG CAP PO SCH ×2 (09:22→20:19)
--- NOTE | 2022-08-10 09:31 | Progress Note ---
Date of Service August 10, 2022 Assessment & Plan (1) Sickle cell disease: Plan 37-year-old transgender female with reported history of sickle cell hemoglobin SC disease, HIV, PE, factor V Leiden who was admitted with respiratory symptoms thought to be due to acute chest syndrome which has now been ruled out. Since her admission, I have tried to obtain information regarding her mineral engineer and outpatient pain regimen but I have been unsuccessful.. Based on her labs, she does not appear to be an active crisis with normal bilirubin on admission as well as normal reticulocyte count. Since she continues to complain of pain, would be important to discuss with her outpatient mineral engineer in order to know what pain medication regimen she typically responds to during sickle cell crisis. I had an extensive discussion with patient today explaining why I would need her outpatient mineral engineer information in order to address her pain issues as well as optimal management of pain while inpatient. Patient however declined to give me that information. She was also unwilling to give me pharmacy information on where she gets outpatient opioids as well as prescription for hydroxyurea/blood thinners which would be helpful in determining who her mineral engineer is. Hematology will sign off for now at this time. Would be willing to see her in the future if patient is willing to reengage Admission and Anticipated Discharge Date Admission Date: August 05, 2022 Subjective Patient was seen today. Per review of chart and discussion with Dr. Levy and her nurse, she has refused blood work over the past couple of days but continues to demand IV pain medications. During my evaluation of patient today, she denied any new issues but refused to answer most of my questions Results & Data ([facility]) Vital Signs (Past 12 Hours) Vital Signs Temp Pulse Pulse Pulse Resp BP BP 08/10/22 07:46 36.8 C 106 H 16 176/101 H 08/10/22 03:24 36.8 C 110 H 20 163/95 H 08/10/22 00:34 143/102 H 08/09/22 23:28 151/120 H 08/09/22 23:21 116 H 08/09/22 23:04 36.8 C 111 H 20 165/133 H Pulse Ox O2 Del Method 08/10/22 07:46 100 Room Air 08/10/22 03:24 96 Room Air 08/10/22 00:34 08/09/22 23:28 08/09/22 23:21 08/09/22 23:04 94 Room Air
[2022-08-10] MEDS: SODIUM CHLORIDE 0.9% 1000ML 1,000 ML IV SCH (10:00)
[2022-08-10] MEDS: [UNRECOGNIZED DRUG - OTHER] SCH ×3 (10:05→23:00)
[2022-08-10] MEDS ORDERED: ENOXAPARIN 1 MG/KG SQ SCH (13:45)
[2022-08-10] MEDS: ENOXAPARIN 150 MG/ML SYR SQ SCH (17:48)
[2022-08-10] MEDS: cefTRIAXone SODIUM 1,000 MG in DEXTROSE 5% AD-VAN 50 ML IV SCH (17:50)
[2022-08-10] MEDS: ACETAMINOPHEN 325 MG TAB PO PRN (18:30)
--- NOTE | 2022-08-10 19:13 | CT Scan Report ---
CT head/brain wo con CLINICAL HISTORY: severe headache, left eye pain Technique: Contiguous axial CT images of the head were acquired from the base of the skull to the jose luis shavon without intravenous contrast administration. Images were viewed in brain, subdural and bone [facility]. Automated dose lowering techniques and/or adjustment according to patient size were utilized for this exam. Comparison: Comparison is made to CT head 08/07/2022 Findings: The ventricles, basal cisterns, and cerebral sulci are normal. There is no acute intracranial hemorrh age or evidence of acute territorial infarction. Neither mass effect, shift of the midline structures , nor abnormal extra-axial fluid collections are shown. Bilateral maxillary and sphenoid sinus disease is seen. The orbits appear normal. There are no acute fractures of the calvaria or scalp swelling. Impression: 1. No acute intracranial hemorrhage, no evidence of acute territorial infarction or other acute intr acranial disease process. 2. Redemonstration of sinus disease. ACT 112: Negative or not required by law. Electronically signed by: Dilshad Sanchez M.D. 08/10/2022 7:11 PM
[2022-08-10] MEDS ORDERED: HYDROmorphone INJ 1 MG/ML SYRINGE IV STA (20:05)
--- NOTE | 2022-08-10 20:12 | Hospitalist Progress Note ---
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 Possible sick contacts in the family. Patient vaccinated against COVID. Patient is a resident of [place], [place] here for a visit due to family reasons. Had cough symptoms with congestion and clear sputum 10 days ago MAPPING SPECIALIST and was evaluated in the ED 5 days ago at which point symptoms were attributed to bronchitis and sickle cell flare, chest x-ray was clear, patient was discharged home. Last attack was years ago as per patient. She is being managed for the following: Possible acute chest syndrome:Patient presents with chest pain/productive cough with streaks of blood with admitting CT -Bilateral tree in bud nodules are seen which likely represent infectious/inflammatory changes - acute chest syndrome was ruled out Acute painful episode History of sickle cell disease and sickle cell crisis Respiratory viral infection Likely bronchitis versus superimposed pneumonia Acute on chronic anemia:Multifactorial -sickle cell crisis versus pain versus GI bleed versus hemodialysis versus combination of all At admission pt was recommended transfer for tertiary care center ICU per oncall elementary educator which patient declined. Admitting vitals: 36.4 C, 112 bpm, RR 20, 133/92 mmHg, on RA but required 2 L O2 transiently few hours later. Admitting EKG with sinus tachycardia. Admitting labs: Hemoglobin 11.4, folate and vitamin B12 WNL, UA-no UTI, MRSA negative,toxicology screen-positive opiates [no opiate prescription noted in PDMP system/pt is resident of [place]]/follow final results,CD4 count:absolute count 119 (low), %CD4 7 (L), absolute lymphocytes 1724 (wnl) respiratory viral panel -coronavirus [not COVID-19 infection] and parainfluenza 3 virus positive. 08/04 blood culture:NEGATIVE Patient's baseline Hemoglobin around 13 per patient, admitting hemoglobin of 11.4, will continue to monitor H&H daily or as required. We will continue with analgesia, oxygen prn, incentive spirometer, antibiotics and transfusion if needed w/ hematology recs. Pt is now on RA, breathing comfortably D/w malt house operator 08/05 - atb deescalate to doxy, downgrade to PCU, MANAGER BRAND pump for pain, c/w IVF for 24 hours. Resume anticoagulation. Hematology evaled, recommends CTA chest patient underwent CT PE protocol (08/07/2022), and no PE found. CT image also reviewed by pulmonary medicine doctor, and recommends no follow-up and no further recommendation. c/w home hydroxyurea dose for now. Pt would like to use heparin drip while in hospital and then go back on her lovenox on discharge. Heparin drip stopped overnight, due to episode of hematemesis. Heparin drip resumed but as pt would not get blood work stopped overnight. Pt now agrees to get lovenox - pt received first dose (08/10/2022) Pt reported pain in LEs - doppler obtained and negative for DVT D/w the pt to stop MANAGER BRAND pump - this was discontinued however restarted overnight again by pt's request. Pt now has pain in UEs and tenderness at IV site. IV site removed and doppler ordered - pt refused the study. Pain management consulted. Pt agreeable to another IV site at diff arm, plan to restart heparin drip and covert to coumadin (08/09/2022) Situational hypertension: Secondary to acute illness. As needed blood pressure medications, continue home Aldactone and pain management. Painless lower GI bleed: GI evaled, likely hemorrhoidal bleed, appreciate recs. Recs are - GI as OP and dicyclomine 10mg before meals. Episode of hematemesis - CT abdomen obtained and reviewed by GI - Suspect acid- peptic injury, related to prednisone, it possible that pt has gastroparesis, related to narcotic use, IV PPI, carafate, monitor H&H, NPO after MN. Pt ate overnight despite being npo. No more episodes of nausea or vomiting. Other chronic medical conditions: Hypercoagulable state [factor V. Leiden deficiency + history of multiple PE and DVTs + NOAC failure]: Supposed to be on Lovenox, patient noncompliant with Lovenox recommendation from her elementary educator due to abdominal bruising. Dis cussed about anticoagulation need, wants to use heparin drip while in the hospital and then will go back on Lovenox on discharge as per patient. Patient has a plan to get herself started on warfarin, she is awaiting PT/INR machine at home. Restarted IV heparin as above (08/09/22)- now stopped. Received Loveox first dose (08/10/2022 CVA: Continue anticoagulation HIV: Continue home meds, patient requested to have somebody bring her HIV medication. Chronic pain: Continue home pain medications. DVT Px: heparin drip stopped -pt received lovenox Full code Admission and Anticipated Discharge Date Admission Date: August 05, 2022 Subjective Patient seen in follow-up of chest pain likely secondary pneumonia, initially concern due to sickle cell crisis on the background of acute Patient sitting up in bed on RA, in NAD. No more nausea or vomiting CT PE - negative LE doppler negative Pt reported pain and edema in upper extremities yesterday UE b/l doppler ordered - pt refused Restarted IV heparin drip yesterday, but pt refused blood work and so heparin was stopped overnight. Pt is very upset about blood work, and being stuck multiple times. She would also refuse to talk to Dr. Guzman, the elementary educator. Dr. Guzman tried to talk with the patient twice today. I talked to the pt over the phone to clarify issues w/ blood work and not talking to the elementary educator. When asked about her outpatient elementary educator, pt hung up on me. Today pt was also recording nurse in the room, and nursing staff called security. Patient became more upset, and was describing having obscene scenes on her phone, for security officers to check. I saw patient in the room in the presence of psych liaison, and security officers outside of patient's room. Discussed anticoagulation options and she agreed to start Lovenox and bridge to Coumadin. Pt requests IV pain medications. Pt does not take any PO medications ordered. Pain management consulted. Pt breathing comfortably on room air. Discussed with hematology, Dr. Guzman. As above, she was trying to see the patient twice, but not being successful as patient would not engage in conversation with her. As previously mentioned, tried to acquire medical records from patient's outpatient providers in [place], however this has been unsuccessful. Review of Systems Review of Systems: All systems reviewed & are unremarkable except as noted in Subjective Physical Exam Physical Exam: GENERAL: Alert an d oriented x3. NAD , on RA HEENT: NC /AT. Pupils equal, round and reactiv e to light. Oral mucosa moist. NECK : No JVD, no neck masses. HEART: S 1 and S2 heard. R egular rate and rh ythm/tachycardic. No murmur, no gal lop. RESPIRATORY: Normal AP diamete r. No accessory m uscle use. No whe ezing, occasional crackles. ABDOMEN: Soft, bowel soun ds present, no dis tention. NEURO: N o facial droop. S peech is clear. O beys simple comman ds. Moves extremi ties. EXTREMITIES: Mild edema at YAZAN E at previous IV s ite and tenderness to palpation Results & Data Results & Data ([facility]) Vital Signs (Past 12 Hours) Vital Signs Temp Pulse Pulse Resp BP Pulse Ox O2 Del Method 08/10/22 19:00 36.5 C 117 H 18 138/85 95 Room Air 08/10/22 18:04 106 H 18 126/85 97 Room Air 08/10/22 17:43 118 H 08/10/22 11:57 36.9 C 112 H 16 148/110 H 97 Room Air Medications Administered Current Inpatient Medications Acetaminophen (Acetaminophen 325 Mg Tab) 650 mg PO Q4H PRN PRN Reason: Pain or Fever Stop: 09/04/22 03:42 Last Admin: 08/10/22 18:30 Dose: 650 mg Benzonatate (Benzonatate 100 Mg Capsule) 100 mg PO TID PRN PRN Reason: Cough Stop: 09/04/22 02:02 Last Admin: 08/08/22 20:04 Dose: 100 mg Diphenhydramine HCl (Diphenhydramine 50 Mg/Ml Vial) 25 mg IV Q6H PRN PRN Reason: Itching Stop: 09/04/22 03:34 Last Admin: 08/10/22 17:50 Dose: 25 mg Doxycycline Hyclate (Doxycycline Hyclate 100 Mg Cap) 100 mg PO BID [facility] Stop: 08/12/22 20:59 Last Admin: 08/08/22 09:52 Dose: 100 mg Doxycycline Hyclate (Doxycycline Hyclate 100 Mg Cap) 100 mg PO BID [facility] Stop: 08/17/22 08:59 Last Admin: 08/10/22 09:21 Dose: 100 mg Enoxaparin Sodium (Enoxaparin 150 Mg/Ml Syr) 135 mg SQ Q12H EVAN Stop: 09/09/22 13:59 Last Admin: 08/10/22 17:48 Dose: 135 mg Folic Acid (Folic Acid 1 Mg Tab) 5 mg PO DAILY EVAN Stop: 09/04/22 08:59 Last Admin: 08/10/22 09:21 Dose: 5 mg Hydromorphone HCl (Hydromorphone Inj 1 Mg/Ml Syringe) 1 mg IV Q3H PRN PRN Reason: Pain Stop: 08/19/22 02:02 Last Admin: 08/10/22 17:48 Dose: 1 mg Hydroxyurea (Hydroxyurea 500 Mg Cap) 500 mg PO BID EVAN Stop: 09/04/22 08:59 Last Admin: 08/10/22 09:22 Dose: 500 mg Promethazine HCl 12.5 mg/ (Sodium Chloride) 50.5 mls @ 202 mls/hr IV Q6H PRN PRN Reason: Nausea And Vomiting Stop: 09/04/22 02:02 Sodium Chloride (Nss 1000ml) 1,000 mls @ 15 mls/hr IV .Q24H EVAN Stop: 08/19/22 10:02 Last Admin: 08/10/22 10:00 Dose: Not Given Sodium Chloride (Nss 1000ml) 1,000 mls @ 70 mls/hr IV .[id number] [facility] Last Infusion: 08/07/22 17:47 Dose: Infused Ceftriaxone Sodium 1,000 mg/ (Dextrose) 50 mls @ 100 mls/hr IV Q24H [facility]; Protocol Stop: 08/15/22 16:29 Last Infusion: 08/10/22 18:35 Dose: Infused Heparin Sodium/Dextrose (Heparin Sodium/Dextrose) 25,000 units in 500 mls @ 0 mls/hr IV .Q0M [facility]; Protocol Stop: 09/08/22 17:59 Last Titration: 08/10/22 16:00 Dose: Infused Labetalol HCl (Labetalol Hcl Iv 5 Mg/Ml 20ml) 10 mg IV Q6H PRN PRN Reason: hypertension Stop: 09/04/22 13:09 Last Admin: 08/07/22 12:08 Dose: 10 mg Lorazepam (Lorazepam 0.5 Mg Tab) 0.5 mg PO TID PRN PRN Reason: Anxiety Stop: 09/04/22 02:02 Magnesium Oxide (Magnesium Oxide 400 Mg Tab) 400 mg PO QAM [facility] Stop: 09/06/22 09:14 Last Admin: 08/10/22 09:21 Dose: 400 mg Miscellaneous (Order Awaiting Action: Ijzzqzsih-Ynlrszya-Xibvqci Ala [Biktarvy] 50-200-25 Mg Tablet) 1 each N/A QS [facility] Stop: 09/04/22 07:59 Last Admin: 08/10/22 15:58 Dose: Not Given Naloxone HCl (Naloxone Hcl 0.4 Mg/1 Ml Vial/Carp) 0.1 mg IV Q5M PRN; Protocol PRN Reason: Oversedation/Resp Depression Stop: 08/19/22 09:59 Naloxone HCl (Naloxone Hcl 0.4 Mg/1 Ml Vial/Carp) 0.1 mg IV Q5M PRN; Protocol PRN Reason: Oversedation/Resp Depression Stop: 08/22/22 23:45 Oxycodone HCl (Oxycodone Hcl Ir 5 Mg Tab (Immediate Release)) 5 - 10 mg PO QID PRN PRN Reason: Pain Stop: 08/19/22 02:02 Last Admin: 08/09/22 18:20 Dose: 9 mg Pantoprazole Sodium (Pantoprazole 40 Mg Tab) 40 mg PO BID [facility] Stop: 09/07/22 20:59 Last Admin: 08/10/22 09:21 Dose: 40 mg Spironolactone (Spironolactone 100 Mg Tab) 100 mg PO BID17 [facility] Stop: 09/07/22 16:59 Last Admin: 08/10/22 17:16 Dose: 100 mg Sucralfate (Sucralfate 1 Gm/10 Ml Udc) 1 gm PO QID [facility] Stop: 09/07/22 16:59 Last Admin: 08/10/22 17:16 Dose: 1 gm
[2022-08-11] MEDS: HYDROmorphone INJ 1 MG/ML SYRINGE IV PRN ×8 (00:39→23:30)
[2022-08-11] MEDS: diphenhydrAMINE 50 MG/ML VIAL IV PRN ×4 (00:40→23:29)
[2022-08-11] MEDS: ENOXAPARIN 150 MG/ML SYR SQ SCH ×2 (06:51→18:53)
[2022-08-11] MEDS: [UNRECOGNIZED DRUG - OTHER] SCH ×3 (08:06→23:48)
[2022-08-11] MEDS: SODIUM CHLORIDE 0.9% 1000ML 1,000 ML IV SCH (08:07)
[2022-08-11 08:10] LABS: Creatinine Clr Calc Pharmacy 116.5 ml/min; Est GFR (African American) 79.5 ml/min; Est GFR (Non-African American) 68.6 ml/min; Potassium 4.7 mmol/L (3.5-5.1)
[2022-08-11] MEDS: PANTOprazole 40 MG TAB PO SCH ×2 (08:14→20:52)
[2022-08-11] MEDS: DOXYCYCLINE HYCLATE 100 MG CAP PO SCH ×2 (08:14→20:53)
[2022-08-11] MEDS: SPIRONOLACTONE 100 MG TAB PO SCH (08:14)
[2022-08-11] MEDS: HYDROXYUREA 500 MG CAP PO SCH ×2 (08:14→20:52)
[2022-08-11] MEDS: SUCRALFATE 1 GM/10 ML UDC PO SCH ×5 (08:14→20:54)
[2022-08-11] MEDS: MAGNESIUM OXIDE 400 MG TAB PO SCH (08:15)
[2022-08-11] MEDS ORDERED: Nursing to Pharmacy Communication SCH (08:15)
[2022-08-11] MEDS: FOLIC ACID 1 MG TAB PO SCH (08:15)
[2022-08-11 08:34] LABS: Hematocrit (blood only) 35.1 % (37.0-47.0); Hemoglobin 11.7 g/dl (12.0-16.0)
[2022-08-11] MEDS: ACETAMINOPHEN 325 MG TAB PO PRN (09:15)
[2022-08-11] MEDS: oxyCODONE HCL IR 5 MG TAB (IMMEDIATE RELEASE) PO PRN (09:15)
--- NOTE | 2022-08-11 12:04 | CT Scan Report ---
CT head/brain wo con CLINICAL HISTORY: 37 years-old Female with follow up for VANN, L eye pain, blurry vision. Acute headac he with blurry vision TECHNIQUE: Multiple axial CT images of the head were obtained without contrast. A dose lowering tech nique was utilized adhering to the principles of ALARA. CT DOSE: 823.94 mGycm COMPARISON: Head CT 08/10/2022, 08/07/2022 FINDINGS: No acute intracranial hemorrhage, midline shift, intracranial mass, hydrocephalus, territorial ischem ia or abnormal extra-axial collection. Motion degraded exam. Low-lying cerebellar tonsils. The calvar ium is intact. Mild to moderate mucosal thickening of the paranasal sinuses. Mastoid air cells are c lear. IMPRESSION: Motion degraded exam. No acute intracranial abnormality identified. ACT 112: Negative or not required by law. The above report was generated using voice recognition software. It may contain grammatical, syntax o r spelling errors. Electronically signed by: Mohinder Higgins M.D. 08/11/2022 12:02 PM
--- NOTE | 2022-08-11 14:45 | Neurology Consultation ---
Date of Consultation August 11, 2022 Assessment & Plan (1) Acute headache: (2) Sickle cell disease: Plan this patient is having acute headache for a little over 24 hours now on the left side with features that are consistent with a migraine. She has no focal neurologic findings, meningeal signs, or encephalopathy on exam. Neck is supple. There is no signs of increased intracranial pressure on ophthalmologic exam. CT scan of the head was unremarkable. I cannot entirely exclude a tiny stroke but small strokes typically do not give headaches She has sickle cell disease. She has allergy and intolerance to gadolinium and iodine contrast media There is much about her history and behavior that makes me think that there is an underlying psychological issue. Recommendations: 1. MRI of the brain without contrast 2. MR angiography of the head without contrast 3. Carotid ultrasound 4. treating migraines in a patient with sickle cell disease can be difficult at times. Medications like sumatriptan or other triptans as well as ergotamines are contraindicated due to the acute vasospasms possibilities. CGRP inhibitors would be safe but they are not formulary ( Ubrelvy 100 mg or Nurtec 75 mg pills daily for 3 days) 5. Initiate prednisone to break the headache cycle. Consider 60 mg a day for 2 days, 40 mg a day for 2 days, and 20 mg a day for 2 days. 6. Consider psychiatric consultation Overall, I spent a total of 90 minutes with this case including review of records, review of CT films, direct evaluation the patient bedside, and discussing the case with the patient and RN at bedside, and Dr. harmon including differential diagnosis treatment options History of Present Illness Reason for Consultation: Patient is a 37 year old, who I was asked to see at the request of , for neurologic consultation regarding headache. Requesting Physician: Dr. Levy Attending Physician: Jose Levy MD History of Present Illness This patient originally was from [place] but now lives in [place]. She is visiting the area because of a in the family. She carries a diagnosis of sickle cell disease and factor 5 Leiden. She claims that she has had multiple flare-ups since age 12 of sickle cell crisis but these have been intermittent over the years recently. Patient has history of HIV and is on Biktarvy. The patient is supposed to be on hydroxyurea but I am not sure of her compliance with this medication. She is currently transforming from male to female and is on hormone injections every 3 weeks. The patient was admitted for pain August 04 and there was a presumed sickle cell crisis. Patient had chest pain and had some rectal bleeding ( likely hemorrhoidal ). CBC showed a mild anemia and Hematology did not see any indications of fulminant or significant sickle cell disease. Rest of her labs were unremarkable although she had a parainfluenza infection positive test on admission. Initially a CT scan of the head was unremarkable. The patient is having problems with arm pain and swelling ( possibly from IVs) and upper extremity venous Dopplers were unremarkable. Overnight from August 09 into August 10 she developed a significant left-sided headache. It was behind her left eye and included the whole head and left side of the neck. It was a severe sharp pressure pain with a twisting sensation. Her vision was blurry and she had some lightheadedness with standing. There is nausea and photophobia but only minimal phonophobia. She has some dysesthesias of a mild nature intermittently in the fingers of her left hand. A CT scan of the head this morning showed no stroke or hemorrhage. It was unchanged. Patient is quite reluctant to get MRIs and has a iodine contrast allergy. She did manage to get a CT of the chest with medication. There is a concern because the patient is unwilling to give out information to her doctors regarding where she was treated in [facility] who was giving her medications. She was unwilling to give out pharmacy information either. Allergies Allergy/AdvReac Type Severity Reaction Status Date / Time gadoversetamide Allergy Severe Anaphylaxis Verified 08/05/22 02:25 Iodinated Contrast Media Allergy Severe Anaphylaxis Verified 08/05/22 02:25 shellfish derived Allergy Severe Anaphylaxis Verified 08/05/22 02:22 ketorolac [From Toradol] Allergy Hives Verified 08/05/22 02:22 NSAIDS (Non-Steroidal Allergy Hives Verified 08/05/22 02:22 Anti-Inflamma Home Medications Medication Instructions Recorded Confirmed Type Hormone Injections 1 dose INJ .[id number] 08/05/22 08/05/22 History bictegravir 50 mg-emtricitabine 1 tab PO DAILY 08/05/22 08/05/22 History 200 mg-tenofovir alafenam 25 mg tablet (Biktarvy) folic acid 1 mg tablet 5 mg PO DAILY 08/05/22 08/05/22 History hydroxyurea 500 mg capsule 500 mg PO BID 08/05/22 08/05/22 History oxycodone 20 mg tablet,crush 20 mg PO Q12H PRN Pain 08/05/22 08/05/22 History resistant,extended release 12 hr (OxyContin) oxycodone 5 mg tablet 5 mg PO Q4H PRN Pain 08/05/22 08/05/22 History spironolactone 100 mg tablet 100 mg PO BID 08/05/22 08/05/22 History Patient History Medical History Factor V Leiden History of pulmonary embolism Sickle cell disease Upper extremity pain Social History Smoking Status: Never smoker Hx Alcohol Use: Yes Alcohol type: wine Hx Substance Use: No Preferred Language: Setswana Communication Ability: Effective Equipment Man Required: No Beliefs That Will Affect Care: None Current Living Situation: Significant Other Current Living Situation Comment: Apartment with fiance and 2 kids Feels Safe at Home: Yes Safety Concerns: Feels Safe At This Time Assistive Devices: None Review of Systems Constitutional: + fatigue; no fever and no weakness Eyes: + worsening vision ( Blurry); no diplopia and no eye pain Ear, Nose, Mouth, Throat: no ear pain, no tinnitus, no hearing loss, no dizziness, no snoring, no hoarseness and no dysphagia Respiratory: no cough and no dyspnea Cardiovascular: no chest pain, no palpitations and no lightheadedness Gastrointestinal: no abdominal pain, no nausea and no vomiting Genitourinary: no dysuria, no urinary frequency and no urinary incontinence Musculoskeletal: no back pain, no neck pain, no radicular pain, no joint pain and no myalgia Integumentary: no rash and no lesions Neurologic: + numbness and + headache(s); no gait abnormality, no localized weakness, no generalized weakness, no tingling, no tremor(s), no abnormal movements, no abnormal speech, no confusion and no memory loss Psychiatric: no depression, no irritability, no anxiety, no difficulty concentrating, no confusion and no hallucinations Endocrine: no fatigue and no flushing Hematologic / Lymphatic: no easy bleeding and no easy bruising Allergy / Immunological: no urticaria and no problem reported Exam (Neuro) Physical Exam: The patient is right-handed. The patient is awake, alert, and attentive. Speech is normal without any aphasia or dysarthria. The patient can name objects, repeat phrases, and has normal spontaneous speech. Mentation and thought processes are intact, with orientation to person, place and time, and normal fund of knowledge. Attention and concentration are normal. Mood and affect are normal and appropriate. General appearance and grooming are normal. Short and long-term memory are intac t. The discs are sharp with positive venous pulsations bilaterally. There are no exudates, hemorrhages, or blood vessel changes seen. Pupils are 4 mm bilaterally and reactive to light. Extraocular eye muscles are intact without nystagmus. Visual acuity and visual nunez seem normal grossly to confrontation. There are no deficits to sensation in the face in all 3 distributions of the fifth cranial nerve bilaterally. Corneal reflexes are positive bilaterally. Facial strength and symmetry was normal bilaterally. Hearing seems normal bilaterally. Palate moves well without asymmetry. There is normal sternocleidomastoid and trapezius (shoulder shrug) strength bilaterally. Tongue is midline with good strength bilaterally. Neck has a full range of motion without discomfort. There are no cervical bruits bilaterally. There are no cranial or ocular bruits. Heart is without murmur. There is a regular rhythm and rate. Cervical, thoracic, and lumbar spine are nontender to palpation. Gait is not tested and stance sitting in bed is reasonable. With outstretched arms there is no drift. There are no resting, postural, or action tremors. There is no ataxia with finger to nose testing. There is good facility in the hands. No other abnormal involuntary movements are noted. Motor strength is 5/5 diffusely in the arms bilaterally including deltoids, biceps, triceps, brachioradialis, wrist flexors and extensors, natural sciences manager, and intrinsic hand muscles. Motor strength is 5/5 diffusely in the legs bilaterally including hip flexors, quadriceps, hamstrings, gastrocnemius, tibialis anterior, tibialis posterior, and Peroneii muscles. Toe extensors are normal and there is good bulk in the extensor digitorum brevis muscles bilaterally. The limbs have good tone without rigidity or spasticity. There is no atrophy noted in the muscles. Muscle bulk is normal, there is no tenderness to palpation, no myotonia to percussion, and no fasciculations seen. Sensory examination is intact to touch and pin throughout all 4 limbs diffusely. Reflexes are 1/4 in the biceps, triceps, brachioradialis, quadriceps, and Achilles tendons bilaterally. There is no clonus bilaterally. Toes are downgoing with plantar stimulation bilaterally. Results & Data ([facility]) Vital Signs (Past 12 Hours) Vital Signs Temp Pulse Pulse Pulse Resp BP Pulse Ox 08/11/22 11:15 109 H 17 141/86 H 95 08/11/22 08:00 08/11/22 08:00 102 H 08/11/22 07:26 36.5 C 104 H 17 139/95 97 08/11/22 03:43 36.7 C 104 H 16 153/98 H 98 O2 Del Method 08/11/22 11:15 Room Air 08/11/22 08:00 Room Air 08/11/22 08:00 08/11/22 07:26 Room Air 08/11/22 03:43 Room Air PG Care Time/CCT Total # of Minutes Spent Total Time Spent with Patient: Total time spent is greater than 50% in coordination of care (as documented) at patient's floor/unit and/or counseling patient: Coding Level of Care Code 01167 IN/OBS CONSULT LVL 5,80M Diagnoses Acute headache R51.9 Sickle cell disease D57.1 Time Spent (min) 90
[2022-08-11] MEDS ORDERED: LORazepam 2 MG/1 ML VIAL IV PRN (15:09)
--- NOTE | 2022-08-11 16:14 | Hospitalist Progress Note ---
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 Possible sick contacts in the family. Patient vaccinated against COVID. Patient is a resident of [place], [place] here for a visit due to family reasons. 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 Last attack was years ago as per patient. She is being managed for the following: Possible acute chest syndrome:Patient presents with chest pain/productive cough with streaks of blood with admitting CT -Bilateral tree in bud nodules are seen which likely represent infectious/inflammatory changes - acute chest syndrome was ruled out Acute painful episode History of sickle cell disease and sickle cell crisis Respiratory viral infection Likely bronchitis versus superimposed pneumonia Acute on chronic anemia:Multifactorial -sickle cell crisis versus pain versus GI bleed versus hemodialysis versus combination of all At admission pt was recommended transfer for tertiary care center ICU per oncall senior operator which patient declined. Admitting vitals: 36.4 C, 112 bpm, RR 20, 133/92 mmHg, on RA but required 2 L O2 transiently few hours later. Admitting EKG with sinus tachycardia. Admitting labs: Hemoglobin 11.4, folate and vitamin B12 WNL, UA-no UTI, MRSA negative,toxicology screen-positive opiates [no opiate prescription noted in PDMP system/pt is resident of [place]]/follow final results,CD4 count:absolute count 119 (low), %CD4 7 (L), absolute lymphocytes 1724 (wnl) respiratory viral panel -coronavirus [not COVID-19 infection] and parainfluenza 3 virus positive. 08/04 blood culture:NEGATIVE Patient's baseline Hemoglobin around 13 per patient, admitting hemoglobin of 11.4, will continue to monitor H&H daily or as required. We will continue with analgesia, oxygen prn, incentive spirometer, antibiotics and transfusion if needed w/ hematology recs. Pt is now on RA, breathing comfortably D/w cruise staff member 08/05 - atb deescalate to doxy, downgrade to PCU, MONKEY KEEPER pump for pain, c/w IVF for 24 hours. Resume anticoagulation. Hematology evaled, recommends CTA chest patient underwent CT PE protocol (08/07/2022), and no PE found. CT image also reviewed by pulmonary medicine doctor, and recommends no follow-up and no further recommendation. c/w home hydroxyurea dose for now. Pt would like to use heparin drip while in hospital and then go back on her lovenox on discharge. Heparin drip stopped overnight, due to episode of hematemesis. Heparin drip resumed but as pt would not get blood work stopped overnight. Pt now agrees to get lovenox - pt received first dose (08/10/2022) Pt reported pain in LEs - doppler obtained and negative for DVT D/w the pt to stop MONKEY KEEPER pump - this was discontinued however restarted overnight again by pt's request. Pt now has pain in UEs and tenderness at IV site. IV site removed and pending ordered - pt refused the study. Pain management consulted. Pt agreeable to another IV site at diff arm, plan to restart heparin drip and covert to coumadin (08/09/2022) Headache, L eye pain CT head without contrast x2 negative Carotid doppler pendin Neurology consulted, and discussed with Dr. Brenner in detail - this patient is havi ng acute headache for a little over 24 hours now on the left side with features that are consistent with a migraine. She has no focal neurologic findings, meningeal signs, or encephalopathy on exam. Neck is supple. There is no signs of increased intracranial pressure on ophthalmologic exam.I cannot entirely exclude a tiny stroke but small strokes typically do not give headaches MRI attempted twice, however unsuccessful, patient requires anesthesia Discussed with anesthesiologist, will schedule for Friday or Friday Headache medications - started on prednisone, may also give IV depakote 250 Situational hypertension: Secondary to acute illness. As needed blood pressure medications, home Aldactone and pain management. Painless lower GI bleed: GI evaled, likely hemorrhoidal bleed, appreciate recs. Recs are - GI as OP and dicyclomine 10mg before meals. Episode of hematemesis - CT abdomen obtained and reviewed by GI - Suspect acid- peptic injury, related to prednisone, it possible that pt has gastroparesis, related to narcotic use, IV PPI, carafate, monitor H&H, NPO after MN. Pt ate overnight despite being npo. No more episodes of nausea or vomiting. Other chronic medical conditions: Hypercoagulable state [factor V. Leiden deficiency + history of multiple PE and DVTs + NOAC failure]: Supposed to be on Lovenox, patient noncompliant with Lovenox recommendation from her senior operator due to abdominal bruising. Discussed about anticoagulation need, wants to use heparin drip while in the hospital and then will go back on Lovenox on discharge as per patient. Patient has a plan to get herself started on warfarin, she is awaiting PT/INR machine at home. Restarted IV heparin as above (08/09/22)- now stopped. Received Loveox first dose (08/10/2022) CVA: Continue anticoagulation HIV: Continue home meds, patient requested to have somebody bring her HIV medication. Chronic pain: Continue home pain medications. DVT Px: heparin drip stopped -pt received lovenox Full code Admission and Anticipated Discharge Date Admission Date: August 05, 2022 Subjective Patient seen in follow-up of chest pain likely secondary pneumonia, initially concern due to sickle cell crisis on the background of acute Patient sitting up in bed on RA, in NAD. No more nausea or vomiting CT PE - negative LE doppler negative Pt reported pain and edema in upper extremities UE b/l doppler ordered - pt refused Restarted IV heparin drip but pt refused blood work and so heparin was stopped overnight. Ptvery upset about blood work, and being stuck multiple times. Pt would also refuse to talk to Dr. Guzman, the senior operator. Dr. Guzman tried to talk with the patient twice on Friday (yesterday). Yesterday (08/10)pt was also recording nurse in the room, and nursing staff called security. Patient became more upset, and was describing having obscene scenes on her phone, for security officers to check. In the evening patient will develop severe headache, and left eye pain, and some blurry vision. Stat CT head was obtained and negative. Religion Instructor then ordered MRI brain, however patient could not tolerate and requested anesthesia. Today patient seen by neurology. Discussed with neurologist in details, will offer different medications for headache. Repeated CT head without contrast, again negative. Carotid Doppler also ordered and pending. Discussed MRI with the patient, and gave Ativan in addition to Dilaudid. Patient again refused MRI. Anesthesia called and discussed need for MRI. Per anesthesiologist, most likely on Friday or Friday they would be able to assist with this. Discussed with the pt, agreeable to plan above. As previously mentioned, tried to acquire medical records from patient's outpatient providers in [place], however this has been unsuccessful. Review of Systems Review of Systems: All systems reviewed & are unremarkable except as noted in Subjective Physical Exam Physical Exam: GENERAL: Alert an d oriented x3. NAD , on RA HEENT: NC /AT. Pupils equal, round and reactiv e to light. Oral mucosa moist. NECK : No JVD, no neck masses. HEART: S 1 and S2 heard. R egular rate and rh ythm/tachycardic. No murmur, no gal lop. RESPIRATORY: Normal AP diamete r. No accessory m uscle use. No whe ezing, occasional crackles. ABDOMEN: Soft, bowel soun ds present, no dis tention. NEURO: N o facial droop. S peech is clear. O beys simple comman ds. Moves extremi ties. EXTREMITIES: Mild edema at YAZAN E at previous IV s ite and tenderness to palpation Results & Data Results & Data ([facility]) Vital Signs (Past 12 Hours) Vital Signs Temp Pulse Pulse Resp BP Pulse Ox O2 Del Method 08/11/22 15:22 36.6 C 118 H 16 133/86 97 Room Air 08/11/22 11:15 109 H 17 141/86 H 95 Room Air 08/11/22 08:00 Room Air 08/11/22 08:00 102 H 08/11/22 07:26 36.5 C 104 H 17 139/95 97 Room Air Laboratory Results 08/11/22 08/11/22 Range/Units 07:42 07:39 Hgb 11.7 L (12.0-16.0) g/dl Hct 35.1 L (37.0-47.0) % Sodium 132 L (136-145) mmol/L Potassium 4.7 (3.5-5.1) mmol/L Chloride 95 L (98-107) mmol/L Carbon Dioxide 34 H (21-32) mmol/L Anion Gap 3 (3-11) BUN 26 H (6-23) mg/dl Creatinine 1.04 (0.6-1.2) mg/dl Est Cr Clr Drug Dosing 116.5 ml/min Est GFR ( Amer) 79.5 ml/min Est GFR (Non-Af Amer) 68.6 ml/min BUN/Creatinine Ratio 25.0 H (10-20) Glucose 128 H (70-99(Fasting)) mg/dl Calcium 10.0 (8.5-10.1) mg/dl Medications Administered Current Inpatient Medications Acetaminophen (Acetaminophen 325 Mg Tab) 650 mg PO Q4H PRN PRN Reason: Pain or Fever Stop: 09/04/22 03:42 Last Admin: 08/11/22 09:15 Dose: 650 mg Benzonatate (Benzonatate 100 Mg Capsule) 100 mg PO TID PRN PRN Reason: Cough Stop: 09/04/22 02:02 Last Admin: 08/08/22 20:04 Dose: 100 mg Diphenhydramine HCl (Diphenhydramine 50 Mg/Ml Vial) 25 mg IV Q6H PRN PRN Reason: Itching Stop: 09/04/22 03:34 Last Admin: 08/11/22 12:47 Dose: 25 mg Doxycycline Hyclate (Doxycycline Hyclate 100 Mg Cap) 100 mg PO BID [facility] Stop: 08/12/22 20:59 Last Admin: 08/08/22 09:52 Dose: 100 mg Doxycycline Hyclate (Doxycycline Hyclate 100 Mg Cap) 100 mg PO BID [facility] Stop: 08/17/22 08:59 Last Admin: 08/11/22 08:14 Dose: 100 mg Enoxaparin Sodium (Enoxaparin 150 Mg/Ml Syr) 135 mg SQ Q12H [facility] Stop: 09/10/22 17:59 Folic Acid (Folic Acid 1 Mg Tab) 5 mg PO DAILY [facility] Stop: 09/04/22 08:59 Last Admin: 08/11/22 08:15 Dose: 5 mg Hydromorphone HCl (Hydromorphone Inj 1 Mg/Ml Syringe) 1 mg IV Q3H PRN PRN Reason: Pain Stop: 08/19/22 02:02 Last Admin: 08/11/22 15:17 Dose: 1 mg Hydroxyurea (Hydroxyurea 500 Mg Cap) 500 mg PO BID [facility] Stop: 09/04/22 08:59 Last Admin: 08/11/22 08:14 Dose: 500 mg Promethazine HCl 12.5 mg/ (Sodium Chloride) 50.5 mls @ 202 mls/hr IV Q6H PRN PRN Reason: Nausea And Vomiting Stop: 09/04/22 02:02 Sodium Chloride (Nss 1000ml) 1,000 mls @ 15 mls/hr IV .Q24H EVAN Stop: 08/19/22 10:02 Last Admin: 08/11/22 08:07 Dose: Not Given Sodium Chloride (Nss 1000ml) 1,000 mls @ 70 mls/hr IV .[id number] [facility] Last Infusion: 08/07/22 17:47 Dose: Infused Ceftriaxone Sodium 1,000 mg/ (Dextrose) 50 mls @ 100 mls/hr IV Q24H [facility]; Protocol Stop: 08/15/22 16:29 Last Infusion: 08/10/22 18:35 Dose: Infused Heparin Sodium/Dextrose (Heparin Sodium/Dextrose) 25,000 units in 500 mls @ 0 mls/hr IV .Q0M EAVN; Protocol Stop: 09/08/22 17:59 Last Titration: 08/10/22 16:00 Dose: Infused Labetalol HCl (Labetalol Hcl Iv 5 Mg/Ml 20ml) 10 mg IV Q6H PRN PRN Reason: hypertension Stop: 09/04/22 13:09 Last Admin: 08/07/22 12:08 Dose: 10 mg Lorazepam (Lorazepam 0.5 Mg Tab) 0.5 mg PO TID PRN PRN Reason: Anxiety Stop: 09/04/22 02:02 Lorazepam (Lorazepam 2 Mg/1 Ml Vial) 0.5 mg IV ONCE PRN PRN Reason: MRI Stop: 09/10/22 15:08 Last Admin: 08/11/22 15:23 Dose: 0.5 mg Magnesium Oxide (Magnesium Oxide 400 Mg Tab) 400 mg PO QAM [facility] Stop: 09/06/22 09:14 Last Admin: 08/11/22 08:15 Dose: 400 mg Miscellaneous (Order Awaiting Action: Fbgebyntd-Byjanrbj-Amtajip Ala [Biktarvy] 50-200-25 Mg Tablet) 1 each N/A QS [facility] Stop: 09/04/22 07:59 Last Admin: 08/11/22 12:53 Dose: Not Given Naloxone HCl (Naloxone Hcl 0.4 Mg/1 Ml Vial/Carp) 0.1 mg IV Q5M PRN; Protocol PRN Reason: Oversedation/Resp Depression Stop: 08/19/22 09:59 Naloxone HCl (Naloxone Hcl 0.4 Mg/1 Ml Vial/Carp) 0.1 mg IV Q5M PRN; Protocol PRN Reason: Oversedation/Resp Depression Stop: 08/22/22 23:45 Oxycodone HCl (Oxycodone Hcl Ir 5 Mg Tab (Immediate Release)) 5 - 10 mg PO QID PRN PRN Reason: Pain Stop: 08/19/22 02:02 Last Admin: 08/11/22 09:15 Dose: 10 mg Pantoprazole Sodium (Pantoprazole 40 Mg Tab) 40 mg PO BID [facility] Stop: 09/07/22 20:59 Last Admin: 08/11/22 08:14 Dose: 40 mg Spironolactone (Spironolactone 100 Mg Tab) 100 mg PO BID17 [facility] Stop: 09/07/22 16:59 Last Admin: 08/11/22 08:14 Dose: 100 mg Sucralfate (Sucralfate 1 Gm/10 Ml Udc) 1 gm PO QID [facility] Stop: 09/07/22 16:59 Last Admin: 08/11/22 12:53 Dose: Not Given
--- NOTE | 2022-08-11 17:01 | Ultrasound Report ---
US carotid doppler BI CLINICAL HISTORY: 37 years-old Female with VANN and left eye pain, blurry vision. Acute blurry vision with strokelike symptoms COMPARISON: Head CT of same day TECHNIQUE: Multiple real time sonographic images of the carotid bifurcations were obtained assessing mera scale, color Doppler and spectral wave form appearance FINDINGS: RIGHT CAROTID: The peak systolic velocity measured within the right ICA is 82 cm/sec. The end diast olic velocity measured 31 cm/sec. The ICA to CCA ratio measured 1.0 which correlates with a stenosis of 0-50%. LEFT CAROTID: The peak systolic velocity measured within the left ICA is 62 cm/sec. The end diastol ic velocity measured 15 cm/sec. The ICA to CCA ratio measured 0.9 which correlates with a stenosis of 0-50%. There is normal antegrade vertebral flow bilaterally. IMPRESSION: 1. No hemodynamically significant stenosis or significant atherosclerotic plaquing. 2. Normal antegrade vertebral flow bilaterally. ACT 112: Negative or not required by law. The above report was generated using voice recognition software. It may contain grammatical, syntax o r spelling errors. Electronically signed by: Mohinder Higgins M.D. 08/11/2022 4:59 PM
[2022-08-11] MEDS ORDERED: HYDROmorphone HCL 2 MG TAB PO PRN (17:21)
[2022-08-11] MEDS ORDERED: diphenhydrAMINE Capsule 25 MG CAP PO PRN (17:29)
[2022-08-11] MEDS: cefTRIAXone SODIUM 1,000 MG in DEXTROSE 5% AD-VAN 50 ML IV SCH (17:47)
[2022-08-11] MEDS: predniSONE 20 MG TAB PO SCH (18:47)
[2022-08-11] MEDS: guaiFENesin 600 MG TABCR PO SCH (20:53)
[2022-08-11] MEDS ORDERED: HYDROmorphone INJ 1 MG/ML SYRINGE IV STA (21:40)
[2022-08-12] MEDS: HYDROmorphone INJ 1 MG/ML SYRINGE IV PRN ×7 (02:42→21:30)
[2022-08-12] MEDS: oxyCODONE HCL IR 5 MG TAB (IMMEDIATE RELEASE) PO PRN (03:57)
[2022-08-12] MEDS: ENOXAPARIN 150 MG/ML SYR SQ SCH ×2 (05:53→17:42)
[2022-08-12] MEDS: ACETAMINOPHEN 325 MG TAB PO PRN (06:00)
[2022-08-12] MEDS: [UNRECOGNIZED DRUG - OTHER] SCH ×3 (07:40→22:33)
[2022-08-12] MEDS: SUCRALFATE 1 GM/10 ML UDC PO SCH ×4 (08:31→21:27)
[2022-08-12] MEDS: DOXYCYCLINE HYCLATE 100 MG CAP PO SCH ×2 (08:33→21:29)
[2022-08-12] MEDS: guaiFENesin 600 MG TABCR PO SCH ×2 (08:33→21:28)
[2022-08-12] MEDS: FOLIC ACID 1 MG TAB PO SCH (08:33)
[2022-08-12] MEDS: PANTOprazole 40 MG TAB PO SCH ×2 (08:34→21:27)
[2022-08-12] MEDS: HYDROXYUREA 500 MG CAP PO SCH ×2 (08:34→21:28)
[2022-08-12] MEDS: MAGNESIUM OXIDE 400 MG TAB PO SCH (08:34)
[2022-08-12] MEDS ORDERED: POLYETHYLENE (MIRALAX) 17 GM PACK PO PRN (08:34)
[2022-08-12] MEDS: predniSONE 20 MG TAB PO SCH (08:34)
[2022-08-12] MEDS: SENNA 8.6 MG TAB PO SCH (08:38)
[2022-08-12] MEDS: diphenhydrAMINE 50 MG/ML VIAL IV PRN ×3 (09:01→21:30)
--- NOTE | 2022-08-12 09:11 | Hospitalist Progress Note ---
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 Possible sick contacts in the family. Patient vaccinated against COVID. Patient is a resident of [place], [place] here for a visit due to family reasons. Had cough symptoms with congestion and clear sputum 10 days ago TECHNICAL SERVICES ASSISTANT and was evaluated in the ED 5 days ago at which point symptoms were attributed to bronchitis and sickle cell flare, chest x-ray was clear, patient was discharged home. Last attack was years ago as per patient. She is being managed for the following: Possible acute chest syndrome:Patient presents with chest pain/productive cough with streaks of blood with admitting CT -Bilateral tree in bud nodules are seen which likely represent infectious/inflammatory changes - acute chest syndrome was ruled out Acute painful episode History of sickle cell disease and sickle cell crisis Respiratory viral infection Likely bronchitis versus superimposed pneumonia Acute on chronic anemia:Multifactorial -sickle cell crisis versus pain versus GI bleed versus hemodialysis versus combination of all At admission pt was recommended transfer for tertiary care center ICU per oncall physical therapy aides teacher which patient declined. Admitting vitals: 36.4 C, 112 bpm, RR 20, 133/92 mmHg, on RA but required 2 L O2 transiently few hours later. Admitting EKG with sinus tachycardia. Admitting labs: Hemoglobin 11.4, folate and vitamin B12 WNL, UA-no UTI, MRSA negative,toxicology screen-positive opiates [no opiate prescription noted in PDMP system/pt is resident of [place]]/follow final results,CD4 count:absolute count 119 (low), %CD4 7 (L), absolute lymphocytes 1724 (wnl) respiratory viral panel -coronavirus [not COVID-19 infection] and parainfluenza 3 virus positive. 08/04 blood culture:NEGATIVE Patient's baseline Hemoglobin around 13 per patient, admitting hemoglobin of 11.4, will continue to monitor H&H daily or as required. We will continue with analgesia, oxygen prn, incentive spirometer, antibiotics and transfusion if needed w/ hematology recs. Pt is now on RA, breathing comfortably D/w criminology professor 08/05 - atb deescalate to doxy, downgrade to PCU, HR RECRUITER pump for pain, c/w IVF for 24 hours. Resume anticoagulation. Hematology evaled, recommends CTA chest patient underwent CT PE protocol (08/07/2022), and no PE found. CT image also reviewed by pulmonary medicine doctor, and recommends no follow-up and no further recommendation. c/w home hydroxyurea dose for now. Pt would like to use heparin drip while in hospital and then go back on her lovenox on discharge. Heparin drip stopped overnight, due to episode of hematemesis. Heparin drip resumed but as pt would not get blood work stopped overnight. Pt now agrees to get lovenox - pt received first dose (08/10/2022) Pt reported pain in LEs - doppler obtained and negative for DVT D/w the pt to stop HR RECRUITER pump - this was discontinued however restarted overnight again by pt's request. Pt now has pain in UEs and tenderness at IV site. IV site removed and pending ordered - pt refused the study. Pain management consulted. Pt agreeable to another IV site at diff arm, plan to restart heparin drip and covert to coumadin (08/09/2022) Headache, L eye pain CT head without contrast x2 negative Carotid doppler pendin Neurology consulted, and discussed with Dr. Brenner in detail - this patient is havi ng acute headache for a little over 24 hours now on the left side with features that are consistent with a migraine. She has no focal neurologic findings, meningeal signs, or encephalopathy on exam. Neck is supple. There is no signs of increased intracranial pressure on ophthalmologic exam.I cannot entirely exclude a tiny stroke but small strokes typically do not give headaches MRI attempted twice, however unsuccessful, patient requires anesthesia Discussed with anesthesiologist, will schedule for Friday or Friday Headache medications - started on prednisone, may also give IV depakote 250 Situational hypertension: Secondary to acute illness. As needed blood pressure medications, home Aldactone and pain management. Painless lower GI bleed: GI evaled, likely hemorrhoidal bleed, appreciate recs. Recs are - GI as OP and dicyclomine 10mg before meals. Episode of hematemesis - CT abdomen obtained and reviewed by GI - Suspect acid- peptic injury, related to prednisone, it possible that pt has gastroparesis, related to narcotic use, IV PPI, carafate, monitor H&H, NPO after MN. Pt ate overnight despite being npo. No more episodes of nausea or vomiting. Other chronic medical conditions: Hypercoagulable state [factor V. Leiden deficiency + history of multiple PE and DVTs + NOAC failure]: Supposed to be on Lovenox, patient noncompliant with Lovenox recommendation from her physical therapy aides teacher due to abdominal bruising. Discussed about anticoagulation need, wants to use heparin drip while in the hospital and then will go back on Lovenox on discharge as per patient. Patient has a plan to get herself started on warfarin, she is awaiting PT/INR machine at home. Restarted IV heparin as above (08/09/22)- now stopped. Received Loveox first dose (08/10/2022) CVA: Continue anticoagulation HIV: Continue home meds, patient requested to have somebody bring her HIV medication. Chronic pain: Continue home pain medications. DVT Px: heparin drip stopped -pt received lovenox Full code Admission and Anticipated Discharge Date Admission Date: August 05, 2022 Subjective Patient seen in follow-up of chest pain likely secondary pneumonia, initially concern due to sickle cell crisis on the background of acute Patient sitting up in bed on RA, in NAD. 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 Patient became more upset, and was describing having obscene scenes on her phone, for security officers to check. Pt refused to talk to Dr. Guzman (twice) and would not provide information on her outpatient physical therapy aides teacher. Pt gets upset when asked about this information. Pt developed severe headache, and left eye pain, and some blurry vision. CT head x2 was obtained and negative. Carotid Doppler negative Family Day Care Provider then ordered MRI brain, however patient could not tolerate and requested anesthesia. Neurology was consulted and discussed in detail, will offer different medications for headache. Discussed MRI with the patient, and gave Ativan in addition to Dilaudid. Patient again refused MRI. Anesthesia was consulted and will assist with MRI tmrw. Discussed with the pt, agreeable to plan above. Pt reports cough improved and chest pain seems resolved. Continues to have headache and backache. As previously mentioned, tried to acquire medical records from patient's outpatient providers in [place], however this has been unsuccessful. Review of Systems Review of Systems: All systems reviewed & are unremarkable except as noted in Subjective Physical Exam Physical Exam: GENERAL: Alert an d oriented x3. NAD , on RA HEENT: NC /AT. Pupils equal, round and reactiv e to light. Oral mucosa moist. NECK : No JVD, no neck masses. HEART: S 1 and S2 heard. R egular rate and rh ythm/tachycardic. No murmur, no gal lop. RESPIRATORY: Normal AP diamete r. No accessory m uscle use. No whe ezing, occasional crackles. ABDOMEN: Soft, bowel soun ds present, no dis tention. NEURO: E FLORENTINO, PERRL, No fac ial asymmetry. Sp eech fluent. Obey s simple commands. Moves extremitie s. EXTREMITIES: M ild edema at LUE a t previous IV site and tenderness to palpation Results & Data Results & [facility] ([facility]) Vital Signs (Past 12 Hours) Vital Signs Temp Pulse Pulse Pulse Resp BP BP 08/12/22 07:22 36.5 C 109 H 24 136/84 08/12/22 03:24 36.5 C 108 H 17 126/84 08/12/22 00:00 119 H 08/12/22 00:32 36.7 C 116 H 18 138/87 Pulse Ox O2 Del Method O2 Flow Rate 08/12/22 07:22 99 Room Air 08/12/22 03:24 98 Nasal Cannula 2 08/12/22 00:00 08/12/22 00:32 92 Room Air Medications Administered Current Inpatient Medications Acetaminophen (Acetaminophen 325 Mg Tab) 650 mg PO Q4H PRN PRN Reason: Pain or Fever Stop: 09/04/22 03:42 Last Admin: 08/12/22 06:00 Dose: 650 mg Benzonatate (Benzonatate 100 Mg Capsule) 100 mg PO TID PRN PRN Reason: Cough Stop: 09/04/22 02:02 Last Admin: 08/08/22 20:04 Dose: 100 mg Diphenhydramine HCl (Diphenhydramine 50 Mg/Ml Vial) 25 mg IV Q6H PRN PRN Reason: Itching Stop: 09/04/22 03:34 Last Admin: 08/12/22 09:01 Dose: 25 mg Diphenhydramine HCl (Diphenhydramine Capsule 25 Mg Cap) 25 mg PO Q4H PRN PRN Reason: itching Stop: 09/10/22 17:28 Last Admin: 08/11/22 18:51 Dose: 25 mg Doxycycline Hyclate (Doxycycline Hyclate 100 Mg Cap) 100 mg PO BID [facility] Stop: 08/12/22 20:59 Last Admin: 08/08/22 09:52 Dose: 100 mg Doxycycline Hyclate (Doxycycline Hyclate 100 Mg Cap) 100 mg PO BID [facility] Stop: 08/17/22 08:59 Last Admin: 08/12/22 08:33 Dose: 100 mg Enoxaparin Sodium (Enoxaparin 150 Mg/Ml Syr) 135 mg SQ Q12H [facility] Stop: 09/10/22 17:59 Last Admin: 08/12/22 05:53 Dose: 135 mg Folic Acid (Folic Acid 1 Mg Tab) 5 mg PO DAILY [facility] Stop: 09/04/22 08:59 Last Admin: 08/12/22 08:33 Dose: 5 mg Guaifenesin (Guaifenesin 600 Mg Tabcr) 600 mg PO Q12 [facility] Stop: 09/10/22 20:59 Last Admin: 08/12/22 08:33 Dose: 600 mg Hydromorphone HCl (Hydromorphone Inj 1 Mg/Ml Syringe) 1 mg IV Q3H PRN PRN Reason: Pain Stop: 08/19/22 02:02 Last Admin: 08/12/22 09:01 Dose: 1 mg Hydroxyurea (Hydroxyurea 500 Mg Cap) 500 mg PO BID [facility] Stop: 09/04/22 08:59 Last Admin: 08/12/22 08:34 Dose: 500 mg Promethazine HCl 12.5 mg/ (Sodium Chloride) 50.5 mls @ 202 mls/hr IV Q6H PRN PRN Reason: Nausea And Vomiting Stop: 09/04/22 02:02 Sodium Chloride (Nss 1000ml) 1,000 mls @ 15 mls/hr IV .Q24H [facility] Stop: 08/19/22 10:02 Last Admin: 08/11/22 08:07 Dose: Not Given Sodium Chloride (Nss 1000ml) 1,000 mls @ 70 mls/hr IV .[id number] [facility] Last Infusion: 08/07/22 17:47 Dose: Infused Heparin Sodium/Dextrose (Heparin Sodium/Dextrose) 25,000 units in 500 mls @ 0 mls/hr IV .Q0M [facility]AN; Protocol Stop: 09/08/22 17:59 Last Titration: 08/10/22 16:00 Dose: Infused Labetalol HCl (Labetalol Hcl Iv 5 Mg/Ml 20ml) 10 mg IV Q6H PRN PRN Reason: hypertension Stop: 09/04/22 13:09 Last Admin: 08/07/22 12:08 Dose: 10 mg Lorazepam (Lorazepam 0.5 Mg Tab) 0.5 mg PO TID PRN PRN Reason: Anxiety Stop: 09/04/22 02:02 Lorazepam (Lorazepam 2 Mg/1 Ml Vial) 0.5 mg IV ONCE PRN PRN Reason: MRI Stop: 09/10/22 15:08 Last Admin: 08/11/22 15:23 Dose: 0.5 mg Magnesium Oxide (Magnesium Oxide 400 Mg Tab) 400 mg PO QAM [facility] Stop: 09/06/22 09:14 Last Admin: 08/12/22 08:34 Dose: 400 mg Miscellaneous (Order Awaiting Action: Phfrpxrvp-Bnfqophx-Pzcqrma Ala [Biktarvy] 50-200-25 Mg Tablet) 1 each N/A QS [facility] Stop: 09/04/22 07:59 Last Admin: 08/12/22 07:40 Dose: Not Given Naloxone HCl (Naloxone Hcl 0.4 Mg/1 Ml Vial/Carp) 0.1 mg IV Q5M PRN; Protocol PRN Reason: Oversedation/Resp Depression Stop: 08/19/22 09:59 Naloxone HCl (Naloxone Hcl 0.4 Mg/1 Ml Vial/Carp) 0.1 mg IV Q5M PRN; Protocol PRN Reason: Oversedation/Resp Depression Stop: 08/22/22 23:45 Oxycodone HCl (Oxycodone Hcl Ir 5 Mg Tab (Immediate Release)) 5 - 10 mg PO QID PRN PRN Reason: Pain Stop: 08/19/22 02:02 Last Admin: 08/12/22 03:57 Dose: 10 mg Pantoprazole Sodium (Pantoprazole 40 Mg Tab) 40 mg PO BID [facility] Stop: 09/07/22 20:59 Last Admin: 08/12/22 08:34 Dose: 40 mg Polyethylene Glycol (Polyethylene (Miralax) 17 Gm Pack) 17 gm PO DAILY PRN PRN Reason: Constipation Stop: 09/11/22 08:33 Prednisone (Prednisone 20 Mg Tab) 60 mg PO QAM [facility] Stop: 09/10/22 16:44 Last Admin: 08/12/22 08:34 Dose: 60 mg Sennosides (Senna 8.6 Mg Tab) 8.6 mg PO QAM [facility] Stop: 09/11/22 08:59 Last Admin: 08/12/22 08:38 Dose: Not Given Spironolactone (Spironolactone 100 Mg Tab) 100 mg PO BID17 [facility] Stop: 09/07/22 16:59 Last Admin: 08/11/22 08:14 Dose: 100 mg Sucralfate (Sucralfate 1 Gm/10 Ml Udc) 1 gm PO QID [facility] Stop: 09/07/22 16:59 Last Admin: 08/12/22 08:31 Dose: Not Given
[2022-08-12] MEDS: SODIUM CHLORIDE 0.9% 1000ML 1,000 ML IV SCH (09:58)
[2022-08-12] MEDS ORDERED: HYDROmorphone INJ 1 MG/ML SYRINGE IV STA (20:26)
[2022-08-13] MEDS: HYDROmorphone INJ 1 MG/ML SYRINGE IV PRN ×8 (00:59→23:35)
[2022-08-13] MEDS: LORazepam 0.5 MG TAB PO PRN ×2 (00:59→20:22)
[2022-08-13] MEDS: diphenhydrAMINE 50 MG/ML VIAL IV PRN ×4 (03:59→23:35)
[2022-08-13 07:04] LABS: Hematocrit (blood only) 38.4 % (37.0-47.0); Hemoglobin 12.9 g/dl (12.0-16.0)
[2022-08-13] MEDS: ENOXAPARIN 150 MG/ML SYR SQ SCH ×2 (07:08→23:34)
[2022-08-13 08:14] LABS: INR 0.9 (0.9-1.1); Prothrombin Time 9.8 Seconds (9.0-12.0)
[2022-08-13] MEDS: SENNA 8.6 MG TAB PO SCH (08:43)
[2022-08-13] MEDS: SUCRALFATE 1 GM/10 ML UDC PO SCH ×4 (08:44→20:30)
[2022-08-13] MEDS: [UNRECOGNIZED DRUG - OTHER] SCH ×2 (08:44→17:15)
[2022-08-13] MEDS: guaiFENesin 600 MG TABCR PO SCH ×2 (08:45→20:29)
[2022-08-13] MEDS: FOLIC ACID 1 MG TAB PO SCH (08:45)
[2022-08-13] MEDS: DOXYCYCLINE HYCLATE 100 MG CAP PO SCH ×2 (08:45→20:26)
[2022-08-13] MEDS: PANTOprazole 40 MG TAB PO SCH ×2 (08:46→20:30)
[2022-08-13] MEDS: predniSONE 20 MG TAB PO SCH (08:46)
[2022-08-13] MEDS: MAGNESIUM OXIDE 400 MG TAB PO SCH (08:46)
[2022-08-13] MEDS: HYDROXYUREA 500 MG CAP PO SCH ×2 (08:46→20:26)
[2022-08-13] MEDS ORDERED: PROPOFOL IV EMULSION 10 MG/ML 20 ML VIAL IV ONE (09:13)
[2022-08-13] MEDS ORDERED: LIDOCAINE 2% MPF LOCAL 5 ML VIAL INFIL ONE (09:13)
[2022-08-13] MEDS ORDERED: MIDAZOLAM HCL 1 MG/ML 2ML VIAL ONE ×2 (09:14)
[2022-08-13] MEDS ORDERED: KETAMINE 50 MG/5 ML SYRINGE ONE (09:14)
[2022-08-13] MEDS ORDERED: DexMEDEtomidine HCL IV 100 MCG/ML VIAL IV ONE (09:21)
[2022-08-13] MEDS ORDERED: HYDROmorphone INJ 2 MG/ML SYR/VIAL ONE (09:51)
[2022-08-13] MEDS ORDERED: ONDANSETRON INJ 2 MG/ML 2 ML VIAL ONE (10:29)
[2022-08-13] MEDS ORDERED: ATROPINE SULFATE 0.1 MG/ML 10ML SYR IV PRN (10:39)
[2022-08-13] MEDS ORDERED: ONDANSETRON INJ 2 MG/ML 2 ML VIAL IV PRN (10:39)
[2022-08-13] MEDS ORDERED: ePHEDrine sulfate 50 MG/ML AMP IV PRN (10:39)
--- NOTE | 2022-08-13 10:41 | Anesthesiology Progress Note ---
Date of Service August 13, 2022 Anesthesia Post Procedure Vital Signs Vital Signs: Temp Pulse Pulse Pulse Resp BP BP 08/13/22 10:35 105 H 20 154/80 H 08/13/22 10:28 36.5 C 112 H 20 137/98 08/13/22 08:59 36.5 C 107 H 20 129/94 08/13/22 08:00 36.6 C 111 H 20 102/72 08/13/22 03:00 36.7 C 106 H 16 122/87 08/13/22 01:05 116 H 08/12/22 23:16 36.5 C 116 H 20 125/90 08/12/22 20:00 08/12/22 19:58 36.5 C 120 H 18 147/89 H 08/12/22 15:57 36.4 C L 122 H 13 140/81 08/12/22 11:25 36.5 C 117 H 23 127/84 Pulse Ox O2 Del Method 08/13/22 10:35 96 Room Air 08/13/22 10:28 96 Room Air 08/13/22 08:59 98 Room Air 08/13/22 08:00 99 Room Air 08/13/22 03:00 100 Room Air 08/13/22 01:05 08/12/22 23:16 96 Room Air 08/12/22 20:00 Room Air 08/12/22 19:58 96 Room Air 08/12/22 15:57 99 Room Air 08/12/22 11:25 97 Room Air Pain Intensity Chest: Pain Intensity: 9 Bilateral Arm: Pain Intensity: 10 Transfer of Care Handoff Completed per policy Notes Mental Status: alert / awake / arousable and participated in evaluation Nausea / Vomiting: adequately controlled Pain: adequately controlled Airway Patency, RR, SpO2: stable & adequate BP & HR: stable & adequate Hydration State: stable & adequate Anesthetic Complications: no major complications apparent and Pt Satisfied with anesthetic care
--- NOTE | 2022-08-13 10:47 | Anesthesiology Progress Note ---
Date of Service August 13, 2022 Anesthesia Post Procedure Vital Signs Vital Signs: Temp Pulse Pulse Pulse Resp BP BP 08/13/22 10:45 36.2 C L 106 H 20 145/89 H 08/13/22 10:35 105 H 20 154/80 H 08/13/22 10:28 36.5 C 112 H 20 137/98 08/13/22 08:59 36.5 C 107 H 20 129/94 08/13/22 08:00 36.6 C 111 H 20 102/72 08/13/22 03:00 36.7 C 106 H 16 122/87 08/13/22 01:05 116 H 08/12/22 23:16 36.5 C 116 H 20 125/90 08/12/22 20:00 08/12/22 19:58 36.5 C 120 H 18 147/89 H 08/12/22 15:57 36.4 C L 122 H 13 140/81 08/12/22 11:25 36.5 C 117 H 23 127/84 Pulse Ox O2 Del Method 08/13/22 10:45 95 Room Air 08/13/22 10:35 96 Room Air 08/13/22 10:28 96 Room Air 08/13/22 08:59 98 Room Air 08/13/22 08:00 99 Room Air 08/13/22 03:00 100 Room Air 08/13/22 01:05 08/12/22 23:16 96 Room Air 08/12/22 20:00 Room Air 08/12/22 19:58 96 Room Air 08/12/22 15:57 99 Room Air 08/12/22 11:25 97 Room Air Pain Intensity Chest: Pain Intensity: 9 Bilateral Arm: Pain Intensity: 10
[2022-08-13] MEDS: SODIUM CHLORIDE 0.9% 1000ML 1,000 ML IV SCH (11:18)
--- NOTE | 2022-08-13 18:36 | Hospitalist Progress Note ---
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 Possible sick contacts in the family. Patient vaccinated against COVID. Patient is a resident of [place], [place] here for a visit due to family reasons. 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 Last attack was years ago as per patient. She is being managed for the following: Possible acute chest syndrome:Patient presents with chest pain/productive cough with streaks of blood with admitting CT -Bilateral tree in bud nodules are seen which likely represent infectious/inflammatory changes - acute chest syndrome was ruled out Acute painful episode History of sickle cell disease and sickle cell crisis Respiratory viral infection Likely bronchitis versus superimposed pneumonia Acute on chronic anemia:Multifactorial -sickle cell crisis versus pain versus GI bleed versus hemodialysis versus combination of all At admission pt was recommended transfer for tertiary care center ICU per oncall pump technician which patient declined. Admitting vitals: 36.4 C, 112 bpm, RR 20, 133/92 mmHg, on RA but required 2 L O2 transiently few hours later. Admitting EKG with sinus tachycardia. Admitting labs: Hemoglobin 11.4, folate and vitamin B12 WNL, UA-no UTI, MRSA negative,toxicology screen-positive opiates [no opiate prescription noted in PDMP system/pt is resident of [place]]/follow final results,CD4 count:absolute count 119 (low), %CD4 7 (L), absolute lymphocytes 1724 (wnl) respiratory viral panel -coronavirus [not COVID-19 infection] and parainfluenza 3 virus positive. 08/04 blood culture:NEGATIVE Patient's baseline Hemoglobin around 13 per patient, admitting hemoglobin of 11.4, will continue to monitor H&H daily or as required. We will continue with analgesia, oxygen prn, incentive spirometer, antibiotics and transfusion if needed w/ hematology recs. Pt is now on RA, breathing comfortably D/w hammer heater 08/05 - atb deescalate to doxy, downgrade to PCU, PST SUPERVISOR pump for pain, c/w IVF for 24 hours. Resume anticoagulation. Hematology evaled, recommends CTA chest patient underwent CT PE protocol (08/07/2022), and no PE found. CT image also reviewed by pulmonary medicine doctor, and recommends no follow-up and no further recommendation. c/w home hydroxyurea dose for now. Pt would like to use heparin drip while in hospital and then go back on her lovenox on discharge. Heparin drip stopped overnight, due to episode of hematemesis. Heparin drip resumed but as pt would not get blood work stopped overnight. Pt now agrees to get lovenox - pt received first dose (08/10/2022) Pt reported pain in LEs - doppler obtained and negative for DVT D/w the pt to stop PST SUPERVISOR pump - this was discontinued however restarted overnight again by pt's request. Pt now has pain in UEs and tenderness at IV site. IV site removed and doppler ordered - pt refused the study. Pain management consulted. Pt agreeable to another IV site at diff arm, plan to restart heparin drip and covert to coumadin (08/09/2022) Headache, L eye pain CT head without contrast x2 negative Carotid doppler negative Neurology consulted, and discussed with Dr. Brenner in detail - this patient is sheth ving acute headache for a little over 24 hours now on the left side with features that are consistent with a migraine. She has no focal neurologic findings, meningeal signs, or encephalopathy on exam. Neck is supple. There is no signs of increased intracranial pressure on ophthalmologic exam.I cannot entirely exclude a tiny stroke but small strokes typically do not give headaches MRI attempted twice, however unsuccessful, even with involvement of anesthesia not able to obtain MRI Headache medications - started on prednisone, may also give IV depakote 250 Situational hypertension: Secondary to acute illness. As needed blood pressure medications, home Aldactone and pain management. Painless lower GI bleed: GI evaled, likely hemorrhoidal bleed, appreciate recs. Recs are - GI as OP and dicyclomine 10mg before meals. Episode of hematemesis - CT abdomen obtained and reviewed by GI - Suspect acid- peptic injury, related to prednisone, it possible that pt has gastroparesis, related to narcotic use, IV PPI, carafate, monitor H&H, NPO after MN. Pt ate overnight despite being npo. No more episodes of nausea or vomiting. Other chronic medical conditions: Hypercoagulable state [factor V. Leiden deficiency + history of multiple PE and DVTs + NOAC failure]: Supposed to be on Lovenox, patient noncompliant with Lovenox recommendation from her pump technician due to abdominal bruising. Discussed about anticoagulation need, wants to use heparin drip while in the hospital and then will go back on Lovenox on discharge as per patient. Patient has a plan to get herself started on warfarin, she is awaiting PT/INR machine at home. Restarted IV heparin as above (08/09/22)- now stopped. Received Loveox first dose (08/10/2022) CVA: Continue anticoagulation HIV: Continue home meds, patient requested to have somebody bring her HIV medication. Chronic pain: Continue home pain medications. DVT Px: heparin drip stopped -pt received lovenox Full code Admission and Anticipated Discharge Date Admission Date: August 05, 2022 Subjective Patient seen in follow-up of chest pain likely secondary pneumonia, initially concern due to sickle cell crisis on the background of acute Patient sitting up in bed on RA, in NAD. 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 Patient became more upset, and was describing having obscene scenes on her phone, for security officers to check. Pt refused to talk to Dr. Guzman (twice) and would not provide information on her outpatient pump technician. Pt gets upset when asked about this information. Pt developed severe headache, and left eye pain, and some blurry vision. CT head x2 was obtained and negative. Carotid Doppler negative Patient Safety Coordinator then ordered MRI brain, however patient could not tolerate and requested anesthesia. Neurology was consulted and discussed in detail, offered different medications for headache. Tried MRI brain twice but pt could not tolerate. Anesthesia was consulted and assisted with MRI today however study still unsuccessful. Pt also developed paresthesia in her extremities. Discussed again w/ neurology and also with [facility] providers (per pt's choice) re: possibility of sedation for mri, further eval and treatment. Outpt open MRI and further outpt eval recommended.Head CT repeated. Pt reports cough improved and chest pain seems resolved. Continues to have headache and backache. As previously mentioned, tried to acquire medical records from patient's outpatient providers in [place], however this has been unsuccessful. Review of Systems Review of Systems: All systems reviewed & are unremarkable except as noted in Subjective Physical Exam Physical Exam: GENERAL: Alert an d oriented x3. NAD , on RA HEENT: NC /AT. Pupils equal, round and reactiv e to light. Oral mucosa moist. NECK : No JVD, no neck masses. HEART: S 1 and S2 heard. R egular rate and rh ythm/tachycardic. No murmur, no gal lop. RESPIRATORY: Normal AP diamete r. No accessory m uscle use. No whe ezing, occasional crackles. ABDOMEN: Soft, bowel soun ds present, no dis tention. NEURO: E FLORENTINO, PERRL, No fac ial asymmetry. Sp eech fluent. Obey s simple commands. Moves extremitie s. EXTREMITIES: M ild edema at LUE a t previous IV site and tenderness to palpation Results & Data Results & Data ([facility]) Vital Signs (Past 12 Hours) Vital Signs Temp Pulse Pulse Pulse Resp BP BP 08/13/22 14:46 117 H 08/13/22 11:15 119 H 08/13/22 07:39 113 H 08/13/22 15:50 36.6 C 112 H 18 118/62 08/13/22 13:18 08/13/22 10:45 36.2 C L 106 H 20 145/89 H 08/13/22 10:35 105 H 20 154/80 H 08/13/22 10:28 36.5 C 112 H 20 137/98 08/13/22 08:59 36.5 C 107 H 20 129/94 08/13/22 08:00 36.6 C 111 H 20 102/72 Pulse Ox O2 Del Method 08/13/22 14:46 08/13/22 11:15 08/13/22 07:39 08/13/22 15:50 96 Room Air 08/13/22 13:18 Room Air 08/13/22 10:45 95 Room Air 08/13/22 10:35 96 Room Air 08/13/22 10:28 96 Room Air 08/13/22 08:59 98 Room Air 08/13/22 08:00 99 Room Air Laboratory Results 08/13/22 08/13/22 Range/Units 06:44 06:44 Hgb 12.9 (12.0-16.0) g/dl Hct 38.4 (37.0-47.0) % PT 9.8 (9.0-12.0) Seconds INR 0.9 (0.9-1.1) Medications Administered Current Inpatient Medications Acetaminophen (Acetaminophen 325 Mg Tab) 650 mg PO Q4H PRN PRN Reason: Pain or Fever Stop: 09/04/22 03:42 Last Admin: 08/12/22 06:00 Dose: 650 mg Benzonatate (Benzonatate 100 Mg Capsule) 100 mg PO TID PRN PRN Reason: Cough Stop: 09/04/22 02:02 Last Admin: 08/08/22 20:04 Dose: 100 mg Diphenhydramine HCl (Diphenhydramine 50 Mg/Ml Vial) 25 mg IV Q6H PRN PRN Reason: Itching Stop: 09/04/22 03:34 Last Admin: 08/13/22 17:37 Dose: 25 mg Diphenhydramine HCl (Diphenhydramine Capsule 25 Mg Cap) 25 mg PO Q4H PRN PRN Reason: itching Stop: 09/10/22 17:28 Last Admin: 08/11/22 18:51 Dose: 25 mg Doxycycline Hyclate (Doxycycline Hyclate 100 Mg Cap) 100 mg PO BID EVAN Stop: 08/17/22 08:59 Last Admin: 08/13/22 08:45 Dose: 100 mg Enoxaparin Sodium (Enoxaparin 150 Mg/Ml Syr) 135 mg SQ Q12H EVAN Stop: 09/10/22 17:59 Last Admin: 08/13/22 07:08 Dose: 135 mg Folic Acid (Folic Acid 1 Mg Tab) 5 mg PO DAILY EVAN Stop: 09/04/22 08:59 Last Admin: 08/13/22 08:45 Dose: 5 mg Guaifenesin (Guaifenesin 600 Mg Tabcr) 600 mg PO Q12 [facility] Stop: 09/10/22 20:59 Last Admin: 08/13/22 08:45 Dose: 600 mg Hydromorphone HCl (Hydromorphone Inj 1 Mg/Ml Syringe) 1 mg IV Q3H PRN PRN Reason: Pain Stop: 08/19/22 02:02 Last Admin: 08/13/22 17:38 Dose: 1 mg Hydroxyurea (Hydroxyurea 500 Mg Cap) 500 mg PO BID [facility] Stop: 09/04/22 08:59 Last Admin: 08/13/22 08:46 Dose: 500 mg Promethazine HCl 12.5 mg/ (Sodium Chloride) 50.5 mls @ 202 mls/hr IV Q6H PRN PRN Reason: Nausea And Vomiting Stop: 09/04/22 02:02 Sodium Chloride (Nss 1000ml) 1,000 mls @ 70 mls/hr IV .[id number] [facility] Last Infusion: 08/07/22 17:47 Dose: Infused Heparin Sodium/Dextrose (Heparin Sodium/Dextrose) 25,000 units in 500 mls @ 0 mls/hr IV .Q0M [facility]; Protocol Stop: 09/08/22 17:59 Last Titration: 08/10/22 16:00 Dose: Infused Labetalol HCl (Labetalol Hcl Iv 5 Mg/Ml 20ml) 10 mg IV Q6H PRN PRN Reason: hypertension Stop: 09/04/22 13:09 Last Admin: 08/07/22 12:08 Dose: 10 mg Lorazepam (Lorazepam 0.5 Mg Tab) 0.5 mg PO TID PRN PRN Reason: Anxiety Stop: 09/04/22 02:02 Last Admin: 08/13/22 00:59 Dose: 0.5 mg Lorazepam (Lorazepam 2 Mg/1 Ml Vial) 0.5 mg IV ONCE PRN PRN Reason: MRI Stop: 09/10/22 15:08 Last Admin: 08/11/22 15:23 Dose: 0.5 mg Magnesium Oxide (Magnesium Oxide 400 Mg Tab) 400 mg PO QAM [facility] Stop: 09/06/22 09:14 Last Admin: 08/13/22 08:46 Dose: 400 mg Miscellaneous (Order Awaiting Action: Dhgiiokta-Nlwtqmwu-Eagaefz Ala [Biktarvy] 50-200-25 Mg Tablet) 1 each N/A QS [facility] Stop: 09/04/22 07:59 Last Admin: 08/13/22 17:15 Dose: Not Given Naloxone HCl (Naloxone Hcl 0.4 Mg/1 Ml Vial/Carp) 0.1 mg IV Q5M PRN; Protocol PRN Reason: Oversedation/Resp Depression Stop: 08/22/22 23:45 Oxycodone HCl (Oxycodone Hcl Ir 5 Mg Tab (Immediate Release)) 5 - 10 mg PO QID PRN PRN Reason: Pain Stop: 08/19/22 02:02 Last Admin: 08/12/22 03:57 Dose: 10 mg Pantoprazole Sodium (Pantoprazole 40 Mg Tab) 40 mg PO BID [facility] Stop: 09/07/22 20:59 Last Admin: 08/13/22 08:46 Dose: 40 mg Polyethylene Glycol (Polyethylene (Miralax) 17 Gm Pack) 17 gm PO DAILY PRN PRN Reason: Constipation Stop: 09/11/22 08:33 Prednisone (Prednisone 20 Mg Tab) 60 mg PO QAM [facility] Stop: 09/10/22 16:44 Last Admin: 08/13/22 08:46 Dose: 60 mg Sennosides (Senna 8.6 Mg Tab) 8.6 mg PO QAM [facility] Stop: 09/11/22 08:59 Last Admin: 08/13/22 08:43 Dose: Not Given Spironolactone (Spironolactone 100 Mg Tab) 100 mg PO BID17 [facility] Stop: 09/07/22 16:59 Last Admin: 08/11/22 08:14 Dose: 100 mg Sucralfate (Sucralfate 1 Gm/10 Ml Udc) 1 gm PO QID [facility] Stop: 09/07/22 16:59 Last Admin: 08/13/22 17:15 Dose: Not Given
[2022-08-13] MEDS ORDERED: HYDROmorphone INJ 1 MG/ML SYRINGE IV STA (22:14)
[2022-08-14] MEDS: [UNRECOGNIZED DRUG - OTHER] SCH ×2 (00:34→09:02)
[2022-08-14] MEDS: HYDROmorphone INJ 1 MG/ML SYRINGE IV PRN ×3 (02:34→09:05)
[2022-08-14] MEDS: diphenhydrAMINE 50 MG/ML VIAL IV PRN (05:39)
[2022-08-14] MEDS: SENNA 8.6 MG TAB PO SCH (09:01)
[2022-08-14] MEDS: SUCRALFATE 1 GM/10 ML UDC PO SCH ×2 (09:02→13:21)
[2022-08-14] MEDS: DOXYCYCLINE HYCLATE 100 MG CAP PO SCH (09:03)
[2022-08-14] MEDS: guaiFENesin 600 MG TABCR PO SCH (09:03)
[2022-08-14] MEDS: HYDROXYUREA 500 MG CAP PO SCH (09:03)
[2022-08-14] MEDS: FOLIC ACID 1 MG TAB PO SCH (09:03)
[2022-08-14] MEDS: PANTOprazole 40 MG TAB PO SCH (09:04)
[2022-08-14] MEDS: MAGNESIUM OXIDE 400 MG TAB PO SCH (09:04)
[2022-08-14] MEDS: predniSONE 20 MG TAB PO SCH (09:04)
[2022-08-14] MEDS ORDERED: HYDROmorphone INJ 0.5 MG/0.5 ML SYR IV PRN (10:44)
--- NOTE | 2022-08-14 10:44 | Neurology Progress Note ---
Date of Service August 14, 2022 Assessment & Plan (1) Acute headache: (2) Cervical spine pain: (3) Lumbar spine pain: (4) Sickle cell disease: Plan This patient has experienced a new onset headache since August 10. The headache is on the left side with features that are consistent with a migraine. in addition there is some left-sided neck and posterior cervical spine pain of an intermittent chronic nature. Also, the patient has some lumbar spine pain and intermittent cramping of the lower extremities which is been present for 48 hours. On exam, there has been no focal neurologic findings, meningeal signs, or encephalopathy on exam. Neck is supple. There is no signs of increased intracranial pressure on ophthalmologic exam. CT scan of the head twice this hospitalization was unremarkable. the patient attempted MRI even with some anesthesia and could not do the study. I cannot entirely exclude a tiny stroke, but small strokes typically do not give headaches. carotid ultrasound showed no significant vascular stenoses or anomalies. She has sickle cell disease. She has allergy and intolerance to gadolinium and iodine contrast media Steroids have not helped this headache. There is much about her history and behavior that makes me think that there is an underlying psychological issue. Recommendations: 1. Repeat CT scan of the head, CT scan of the cervical spine, and CT scan of the lumbar spine. 2. consider initiating magnesium for the headache. 3. treating migraines in a patient with sickle cell disease can be difficult at times. Medications like sumatriptan or other triptans as well as ergotamines are contraindicated due to the acute vasospasms possibilities. 4. CGRP inhibitors would be safe but they are not formulary ( Ubrelvy 100 mg or Nurtec 75 mg pills daily for 3 days) 5. Consider Depakote 250 mg IV 1 time to see if this breaks the migraine. 6. Consider psychiatric consultation Overall, I spent a total of 50 minutes with this case including review of records, direct evaluation the patient bedside, and discussion the case with the patient and RN at bedside, and Dr. Rodriguez including differential diagnosis treatment options Admission and Anticipated Discharge Date Admission Date: August 05, 2022 Subjective Patient continues to have a left-sided headache and Re states that she does not have history of headaches. It still has a migrainous quality and any medication given so far has not helped. It has not changed. It does radiate back into the neck and there is some cervical spine pain as well. In addition the patient has some low back pain with some cramping intermittently in the lower extremities. Blood pressure is 117/78 and she is afebrile Results & Data ([facility]) Vital Signs (Past 12 Hours) Vital Signs Temp Pulse Pulse Pulse Resp BP BP 08/14/22 08:21 36.7 C 117 H 19 117/78 08/14/22 02:51 36.4 C L 113 H 18 113/70 08/13/22 23:30 115 H Pulse Ox O2 Del Method 08/14/22 08:21 97 Room Air 08/14/22 02:51 95 Room Air 08/13/22 23:30 Exam (Neuro) Physical Exam: patient is awake and alert. Speech is without aphasia or dysarthria. Mood seems normal affect is appropriate. Thought processes are intact to conversation. Extraocular muscles are intact without nystagmus. There is no facial droop and tongue is midline. Coordination is normal in the arms and strength seems symmetrical the limbs. PG Care Time/CCT Total # of Minutes Spent Total Time Spent with Patient: Total time spent is greater than 50% in coordination of care (as documented) at patient's floor/unit and/or counseling patient: Coding Level of Care Code 66348 SUB INP/OBS CARE 3/50MIN Diagnoses Acute headache R51.9 Cervical spine pain M54.2 Lumbar spine pain M54.50 Sickle cell disease D57.1 Time Spent (min) 50
--- NOTE | 2022-08-14 11:45 | CT Scan Report ---
CT head/brain wo con CLINICAL HISTORY: 37 years-old Female with follow up stroke -like symptoms. Acute strokelike symptom s TECHNIQUE: Multiple axial CT images of the head were obtained without contrast. A dose lowering tech nique was utilized adhering to the principles of ALARA. CT DOSE: 2110.86 mGy.cm COMPARISON: 08/11/2022 FINDINGS: Motion degraded exam. No acute intracranial hemorrhage, midline shift, intracranial mass, hydrocephal us, territorial ischemia or abnormal extra-axial collection. The calvarium is intact. Mild to moderate mucosal thickening of the paranasal sinuses. Mastoid air c ells are clear. IMPRESSION: No acute intracranial abnormality. ACT 112: Negative or not required by law. The above report was generated using voice recognition software. It may contain grammatical, syntax o r spelling errors. Electronically signed by: Mohinder Higgins M.D. 08/14/2022 11:44 AM
--- NOTE | 2022-08-14 11:51 | CT Scan Report ---
CT SCAN OF THE NECK WITHOUT IV CONTRAST CLINICAL HISTORY: Neck pain COMPARISON STUDY: No priors. TECHNIQUE: Unenhanced CT scan of the soft tissues of the neck was performed from the skull base to th e upper chest. Images are reviewed in the axial, sagittal, and coronal planes. IV contrast was not a dministered as per the referring clinician. Note that the examination was performed in significantly suboptimal fashion without IV contrast. A dose lowering technique was utilized adhering to the [facility] of SAHIL. FINDINGS: Pharynx: The unenhanced ventral soft tissues are grossly unremarkable. The pharyngeal airway is widel y patent. The vocal cords are symmetric. The parapharyngeal fat is well maintained. The prevertebral/ retropharyngeal soft tissues are within normal limits. The epiglottis is normal. Lymphadenopathy: No cervical lymphadenopathy is seen Thyroid: Normal in size and attenuation. Salivary glands: The parotid and submandibular glands are within normal limits. Brain parenchyma: The visualized brain parenchyma at the skull base is normal in appearance. Skeletal structures: Imaged portions of the calvarium at the skull base are within normal limits. The cervical spine appears intact. Sinuses and mastoids: There is moderate mucosal thickening within the right maxillary antrum. Mild-to -moderate mucosal thickening is seen within the ethmoid sinuses, the sphenoid sinuses, and the left m axillary sinus. There is no air-fluid level within the left maxillary antrum. The mastoid air cells a re well pneumatized. Orbits: The bony orbits are intact. Orbital contents are normal as visualized. Lung apices: Visualized apical lung parenchyma is clear. IMPRESSION: 1. No acute abnormality is identified on this unenhanced examination. 2. Paranasal sinus disease as above. ACT 112: Negative or not required by law. Electronically signed by: Connor Caceres M.D. 08/14/2022 11:50 AM
--- NOTE | 2022-08-14 12:16 | CT Scan Report ---
CT lumbar spine wo con HISTORY: 37 years-old Female back pain acute low back pain without reported trauma COMPARISON: CT abdomen and pelvis 08/07/2022 TECHNIQUE: Multiple axial CT images of the lumbar spine were obtained without the use of IV contrast. A dose lowering technique was used consistent with the principals of SAHIL. FINDINGS: Imaged intra-abdominal, intrapelvic and paraspinal tissues are unremarkable. Limited evaluation of th e central canal and neural foramina by CT technique. There is suggestion of mild bilateral L4-L5 and L5-S1 neural foraminal stenosis. No significant degenerative changes, acute fracture, subluxation or endplate erosion. No marrow replacing process. Minimal lower lumbar facet arthrosis with tiny L5-S1 p osterior disc osteophyte complex. IMPRESSION: No acute fracture or subluxation. ACT 112: Negative or not required by law. The above report was generated using voice recognition software. It may contain grammatical, syntax o r spelling errors. Electronically signed by: Mohinder Higgins M.D. 08/14/2022 12:14 PM
[2022-08-14] MEDS ORDERED: VALPROATE SOD 250 MG in DEXTROSE 5% 50 ML IV ONE (13:00)
[2022-08-14] MEDS: ENOXAPARIN 150 MG/ML SYR SQ SCH (13:20)
--- NOTE | 2022-08-14 13:23 | Hospitalist Progress Note ---
Date of Service August 14, 2022 Assessment & Plan (1) Chest pain: Plan: As per Prior hospitalist: Patient is a 37 yr transgender female [male to female, on hormonal treatment] with PMH of hypercoagulable state [factor V Leiden deficiency plus history of multiple PE and DVT, failed NOAC treatment] supposed to be on Lovenox SQ for anticoagulation [noncompliance], CVA, sickle cell anemia, HIV on medication, chronic pain, chronic anemia [baseline hemoglobin around 13 per patient] presented to the ED 08/04 w/ co worsening cough symptoms productive of junky sputum with blood streaks for the last few days 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 Possible sick contacts in the family. Patient vaccinated against COVID. Patient is a resident of [place], [place] here for a visit due to family reasons. 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 Last attack was years ago as per patient. Acute Bronchitis Possible acute chest syndrome due to sickle cell was considered--ruled out as per prior hospitalist --CTA:No pulmonary emboli identified although segmental and subsegmental pulmonary arteries suboptimally assessed on this exam. Small cluster tree-in-bud nodules within the left lower lobe, decreased since prior exam. This favors bronchiolitis. -- Continue doxycycline Saturating well on room air H/O Sickle cell disease and sickle cell crisis Blood work does not appear to be sickle cell crisis as per hematology Normal bilirubin, failed normal reticulocyte count Patient refused further work-up per prior providers Continue hydroxyurea Patient refused to provide outpatient hematology information and also declined her prior pharmacy information to due to mind her outpatient opioid prescription, hydroxyurea, blood thinners as per hematology Pain improved but patient continues to demand IV pain medications but refuses further work-up Acute on chronic anemia: Multifactorial -sickle cell Vs suspected GI bleed Hb 12.9 No acute bleeding issues Monitor As per Prior Hospitalist: At admission pt was recommended transfer for tertiary care center ICU per oncall director report which patient declined. Admitting vitals: 36.4 C, 112 bpm, RR 20, 133/92 mmHg, on RA but required 2 L O2 transiently few hours later. Admitting EKG with sinus tachycardia. Admitting labs: Hemoglobin 11.4, folate and vitamin B12 WNL, UA-no UTI, MRSA negative,toxicology screen-positive opiates [no opiate prescription noted in PDMP system/pt is resident of [place]follow final results,CD4 count:absolute count 119 (low), %CD4 7 (L), absolute lymphocytes 1724 (wnl) respiratory viral panel -coronavirus [not COVID-19 infection] and parainfluenza 3 virus positive. 08/04 blood culture:NEGATIVE D/w exchange clerk 08/05 - atb deescalate to doxy, downgrade to PCU, MIXER WHIPPED TOPPING pump for pain, c/w IVF for 24 hours. Resume anticoagulation. H/O PE/DVT Noncompliance with anticoagulation as per records Failed NOAC treatment IV heparin transition to Lovenox SQ Appreciate hematology input Headache, Left eye pain DD: Migraine CT head: X 3:No acute intracranial abnormality. Carotid doppler:No hemodynamically significant stenosis or significant atherosclerotic plaquing. Normal antegrade vertebral flow bilaterally. CT Neck:No acute abnormality is identified on this unenhanced examination. Paranasal sinus disease as above. -- Cannot give triptans due to sickle cell disease --CGRP inhibitors would be safe but they are not formulary ( Ubrelvy 100 mg or Nurtec 75 mg pills daily for 3 days) -- Offered Depakote to 250 mg IV as recommended by neurology: Patient refused -- Could not get MRI as patient could not be sedated Advised to follow-up with neurology as outpatient As per Prior hospitalist: Neurology consulted, and discussed with Dr. Brenner in detail - this patient is having acute headache for a little over 24 hours now on the left side with features that are consistent with a migraine. She has no focal neurologic findings, meningeal signs, or encephalopathy on exam. Neck is supple. There is no signs of increased intracranial pressure on ophthalmologic exam.I cannot entirely exclude a tiny stroke but small strokes typically do not give headaches MRI attempted twice, however unsuccessful, patient requires anesthesia Discussed with anesthesiologist, will schedule for Friday or Friday Headache medications - started on prednisone, may also give IV depakote 250 Situational hypertension: Secondary to acute illness BP better As per Prior hospitalist: Painless lower GI bleed: GI evaled, likely hemorrhoidal bleed, appreciate recs. Recs are - GI as OP and dicyclomine 10mg before meals. Episode of hematemesis - CT abdomen obtained and reviewed by GI - Suspect acid- peptic injury, related to prednisone, it possible that pt has gastroparesis, related to narcotic use, IV PPI, carafate, monitor H&H, NPO after MN. Pt ate overnight despite being npo. No more episodes of nausea or vomiting. 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 Leiden deficiency + history of multiple PE and DVTs + NOAC failure]: Supposed to be on Lovenox, patient noncompliant with Lovenox recommendation from her director report due to abdominal bruising. Discussed about anticoagulation need, wants to use heparin drip while in the hospital and then will go back on Lovenox on discharge as per patient. Patient has a plan to get herself started on warfarin, she is awaiting PT/INR machine at home. Restarted IV heparin as above (08/09/22)- now stopped. Received Loveox first dose (08/10/2022) CVA: Continue anticoagulation HIV: Continue home meds, patient requested to have somebody bring her HIV medication. Chronic pain: Continue home pain medications. DVT Px: lovenox SQ Code Status Full code Disposition Home Admission and Anticipated Discharge Date Admission Date: August 05, 2022 Subjective Patient is seen and examined at bedside States feeling better today Has chronic back pain Also reports mild left-sided headache Denies any chest pain, shortness of breath, dizziness, nausea, abdominal pain Reports back pain sometimes radiates to lower extremities Discussed with neurologist at bedside as well Review of Systems Review of Systems: All systems reviewed & are unremarkable except as noted in Subjective Physical Exam Physical Exam: Physical Exam: Vitals signs as noted above General Appearance:Obese, no apparent distress Head: normocephalic, Atraumatic Eyes: normal inspection, EOMI Neck: supple, Trachea midline Respiratory/Chest: Normal breath sounds, CTA, No accessory muscle use Cardiovascular: S1, S2, No murmur, +Tachycardia Abdomen/GI:Soft, Non tender, Bowel sounds present Extremities/Musculoskeletal:normal inspection, no edema Neurologic/Psych:AAOX3, grossly no focal neurological deficits Skin: normal color, warm Results & Data Results & Data ([facility]) Vital Signs (Past 12 Hours) Vital Signs Temp Pulse Pulse Resp BP BP Pulse Ox 08/14/22 08:21 36.7 C 117 H 19 117/78 97 08/14/22 02:51 36.4 C L 113 H 18 113/70 95 O2 Del Method 08/14/22 08:21 Room Air 08/14/22 02:51 Room Air
--- NOTE | 2022-08-14 16:09 | Discharge Summary ---
Date of Service August 14, 2022 Admission HPI Per Admitting Provider History obtained from patient and records. 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 Patient is a resident of [place], [place] who has been town the last couple of weeks because of a in the family. 10 days ago, patient noted congestion, cough symptoms productive of clear sputum. Without any chest pain or shortness of breath. Possible sick contacts in the family. Patient has completed COVID-19 vaccination. Intermittent hematochezia without abdominal pain. Patient has not been able to comply with weight-based Lovenox injections re commended by channel business manager for hypercoagulable state the last few months due to abdominal bruising. Plan was for patient to start Coumadin once patient receives her home INR machine. Patient evaluated at [facility] ER 5 days ago. Symptoms attributed to bronchitis and sickle cell flare. Chest x-ray was clear. Patient discharged home. Worsening cough symptoms productive of junky sputum with blood streaks last few days. Chest pain from coughing, increasing shortness of breath. No unusual leg pain. Patient feeling achy all over similar to sickle cell crisis. Last attack was years ago as per patient. Patient returned to ER. 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 Exam Per Admitting Provider Physical Exam Physical Exam: GENERAL: uncomfortable, pleasant, obese, no respiratory distress SKIN: Pallor, warm HEENT: Pale palpebral conjunctivae, no ptosis, dry buccal mucosa NECK : Supple, no tenderness CHEST : CTA, no tenderness HEART : Tachycardic, no obvious murmurs ABDOMEN: Some distention, nontender EXTREMITIES : No LE swelling/tenderness, no other conspicuous deformities noted NEUROLOGIC : Coherent, no facial asymmetry, no other gross focality Principal Diagnosis Acute Bronchitis H/O Sickle cell disease Possible Migraine H/O different thrombosis, pulmonary embolism Chronic Pain syndrome Discharge Data Allergies Allergy/AdvReac Type Severity Reaction Status Date / Time gadoversetamide Allergy Severe Anaphylaxis Verified 08/05/22 02:25 Iodinated Contrast Media Allergy Severe Anaphylaxis Verified 08/05/22 02:25 shellfish derived Allergy Severe Anaphylaxis Verified 08/05/22 02:22 ketorolac [From Toradol] Allergy Hives Verified 08/05/22 02:22 NSAIDS (Non-Steroidal Allergy Hives Verified 08/05/22 02:22 Anti-Inflamma Consultations 08/05/22 00:43 ED Decision to Admit Stat 08/05/22 02:01 Consult Gastroenterology Routine 08/05/22 03:43 Consult Hematology Routine 08/05/22 05:12 HIM [Consult Health Information Management] Routine 08/05/22 06:02 Consult Neurological Surgery Teacher Routine 08/08/22 13:21 Consult Pain Management Routine 08/08/22 15:45 Consult Behavioral Health Liaison Routine 08/11/22 08:24 Consult Neurology Routine 08/11/22 17:03 Consult Anesthesiology Routine Procedures Performed Operation Date: 08/13/22 09:30 Actual Procedures p Brain Angio without Contrast MRI with Anesthesia Sedation - Sandip Brenner MD Ordered Studies 08/04/22 21:15 CT chest diagnostic wo con Urgent 08/07/22 01:14 CT abd pelvis wo con Urgent 08/07/22 01:17 CT head/brain wo con Stat 08/07/22 11:00 CT angio chest PE protocol Routine 08/07/22 16:05 US venous doppler LE BI Urgent 08/10/22 01:01 US venous doppler UE BI Urgent 08/10/22 18:36 CT head/brain wo con Stat 08/11/22 10:47 US carotid doppler BI Urgent 08/11/22 10:48 CT head/brain wo con Urgent 08/13/22 18:30 CT head/brain wo con Routine 08/14/22 10:40 CT lumbar spine wo con Urgent CT neck soft tissues [CT soft tissue neck wo con] Urgent Laboratory Results WBC 7.92 K/ul (4.8-10.8) 08/08/22 06:14 RBC 3.38 M/uL (4.20-5.40) L 08/08/22 06:14 Hgb 12.9 g/dl (12.0-16.0) 08/13/22 06:44 Hct 38.4 % (37.0-47.0) 08/13/22 06:44 MCV 97.0 fL (80.0-100.0) 08/08/22 06:14 MCH 30.5 pg (25.0-34.0) 08/08/22 06:14 MCHC 31.4 g/dL (32.0-36.0) L 08/08/22 06:14 RDW Std Deviation 67.3 fL (36.4-46.3) H 08/08/22 06:14 RDW Coeff of López 18.9 % (11.5-14.5) H 08/08/22 06:14 Plt Count 265 K/uL (130-400) 08/08/22 06:14 MPV 9.9 fL (9.4-12.4) 08/08/22 06:14 Immature Gran % (Auto) 8.9 % 08/05/22 07:34 Neut % (Auto) 58.6 % 08/05/22 07:34 Lymph % (Auto) 27.6 % 08/05/22 07:34 [place] % (Auto) 4.4 % 08/05/22 07:34 Eos % (Auto) 0.2 % 08/05/22 07:34 Baso % (Auto) 0.3 % 08/05/22 07:34 Reticulocyte % (Auto) 2.4 % (0.5-2.0) H 08/05/22 07:34 Neut # (Auto) 3.74 K/uL (1.40-6.50) 08/05/22 07:34 Lymph # (Auto) 1.76 K/uL (1.2-3.4) 08/05/22 07:34 [place] # (Auto) 0.28 K/uL (0.11-0.59) 08/05/22 07:34 Eos # (Auto) 0.01 K/uL (0-0.50) 08/05/22 07:34 Baso # (Auto) 0.02 K/uL (0-0.2) 08/05/22 07:34 Reticulocyte # 0.09 10^6/uL (0.02-0.10) 08/05/22 07:34 Immature Gran # (Auto) 0.57 K/uL (0.01-0.20) H 08/05/22 07:34 Absolute Nucleated RBC 0.16 K/uL (0-0.12) H 08/08/22 06:14 Nucleated RBC % (auto) 2.0 % 08/08/22 06:14 Neutrophils % (Manual) 69 % 08/07/22 01:54 Lymphocytes % (Manual) 26 % 08/07/22 01:54 Monocytes % (Manual) 3 % 08/07/22 01:54 Metamyelocytes % (Man) 1 % 08/07/22 01:54 Myelocytes % (Man) 2 % 08/07/22 01:54 Neutrophils # (Manual) 5.29 K/uL (1.40-6.50) 08/07/22 01:54 Total Absolute Neuts 5.29 K/uL (1.4-6.5) 08/07/22 01:54 Lymphocytes # (Manual) 1.99 K/uL (1.2-3.4) 08/07/22 01:54 Total Abs Lymphocytes 1.99 K/uL (1.2-3.4) 08/07/22 01:54 Monocytes # (Manual) 0.23 K/uL (0.11-0.59) 08/07/22 01:54 Metamyelocytes # (Man) 0.08 K/uL (0-0) H 08/07/22 01:54 Myelocytes # (Manual) 0.15 K/uL (0-0) H 08/07/22 01:54 Polychromasia 1+ 08/07/22 01:54 PT 9.8 Seconds (9.0-12.0) 08/13/22 06:44 INR 0.9 (0.9-1.1) 08/13/22 06:44 APTT 26.4 Seconds (21.0-31.0) 08/07/22 01:54 PTT Ratio 1.0 08/07/22 01:54 Sodium 132 mmol/L (136-145) L 08/11/22 07:39 Potassium 4.7 mmol/L (3.5-5.1) 08/11/22 07:39 Chloride 95 mmol/L (98-107) L 08/11/22 07:39 Carbon Dioxide 34 mmol/L (21-32) H 08/11/22 07:39 Anion Gap 3 (3-11) 08/11/22 07:39 BUN 26 mg/dl (6-23) H 08/11/22 07:39 Creatinine 1.04 mg/dl (0.6-1.2) 08/11/22 07:39 Est Cr Clr Drug Dosing 116.5 ml/min 08/11/22 07:39 Est GFR ( Amer) 79.5 ml/min 08/11/22 07:39 Est GFR (Non-Af Amer) 68.6 ml/min 08/11/22 07:39 BUN/Creatinine Ratio 25.0 (10-20) H 08/11/22 07:39 Glucose 128 mg/dl (70-99(Fasting)) H 08/11/22 07:39 POC Glucose 158 mg/dl (70-99) H 08/05/22 07:29 Estimat Average Glucose 100 mg/dl 08/04/22 22:35 Hemoglobin A1c 5.1 % (4.5-5.6) 08/04/22 22:35 Lactate 1.1 mmol/L (0.4-2.0) 08/05/22 03:54 Calcium 10.0 mg/dl (8.5-10.1) 08/11/22 07:39 Phosphorus 2.6 mg/dl (2.5-4.9) 08/08/22 06:14 Magnesium 1.9 mg/dl (1.7-2.4) 08/08/22 06:14 Iron 48 mcg/dl (35-150) 08/04/22 22:35 Transferrin 238 mg/dl (200-360) 08/04/22 22:35 Ferritin 125.9 ng/ml (8-388) 08/04/22 22:35 Total Bilirubin 0.3 mg/dl (0.2-1.0) 08/04/22 22:35 AST 20 U/L (13-39) 08/04/22 22:35 ALT 17 U/L (7-52) 08/04/22 22:35 Alkaline Phosphatase 90 U/L (34-104) 08/04/22 22:35 Troponin I High Sens 4.2 pg/ml (0-14) 08/04/22 22:35 Total Protein 7.8 gm/dl (6.0-8.3) 08/04/22 22:35 Albumin 4.2 gm/dl (3.4-5.0) 08/04/22 22:35 Globulin 3.6 gm/dl (2.5-4.0) 08/04/22 22:35 Albumin/Globulin Ratio 1.2 (0.9-2) 08/04/22 22:35 Vitamin B12 457 pg/ml (180-914) 08/04/22 22:49 Folate 11.55 ng/ml (>5.38) 08/04/22 22:49 Urine Color Yellow 08/05/22 07:00 Urine Appearance Clear (Clear) 08/05/22 07:00 Urine pH 7.0 (4.5-7.5) 08/05/22 07:00 Ur Specific [place] 1.005 (1.000-1.030) 08/05/22 07:00 Urine Protein Negative (Negative) 08/05/22 07:00 Urine Glucose (UA) Negative (Negative) 08/05/22 07:00 Urine Ketones Negative (Negative) 08/05/22 07:00 Urine Blood Negative (Negative) 08/05/22 07:00 Urine Nitrite Negative (Negative) 08/05/22 07:00 Urine Bilirubin Negative (Negative) 08/05/22 07:00 Urine Urobilinogen Negative (Negative) 08/05/22 07:00 Ur Leukocyte Esterase Negative (Negative) 08/05/22 07:00 Nasal Screen MRSA (PCR) Negative (Negative) 08/05/22 06:00 Urine Opiates Screen Pos (Neg) H 08/05/22 07:00 U Codeine Confrm GC/MS NEGATIVE ng/mL (<50) 08/05/22 07:00 Ur Morphine (GC/MS) NEGATIVE ng/mL (<50) 08/05/22 07:00 Ur Hydrocodone (GC/MS) NEGATIVE ng/mL (<50) 08/05/22 07:00 Ur Norhydrocodone NEGATIVE ng/mL (<50) 08/05/22 07:00 Ur Noroxycodone NEGATIVE ng/mL (<50) 08/05/22 07:00 Urine Oxycodone (GC/MS) NEGATIVE ng/mL (<50) 08/05/22 07:00 U Oxymorphone GC/MS NEGATIVE ng/mL (<50) 08/05/22 07:00 Ur Methadone, Qual Neg (Neg) 08/05/22 07:00 Ur Hydromorphone (GC/MS) 388 ng/mL (<50) H 08/05/22 07:00 Urine Barbiturates Neg (Neg) 08/05/22 07:00 Ur Phencyclidine (PCP) Neg (Neg) 08/05/22 07:00 U Amphetamin/Meth Scrn Neg (Neg) 08/05/22 07:00 MDMA (Ecstasy) Screen Neg (Neg) 08/05/22 07:00 U Benzodiazepines Scrn Neg (Neg) 08/05/22 07:00 Ur Cocaine Metabolite Neg (Neg) 08/05/22 07:00 U Marijuana (THC) Screen Neg (Neg) 08/05/22 07:00 Drug Screen Comment SEE NOTE 08/05/22 07:00 Absolute Lymphocytes 1724 cells/uL (850-3900) 08/05/22 07:34 % CD4 Cells 7 % (30-61) L 08/05/22 07:34 Absolute CD4 Count 119 cells/uL (490-1740) L 08/05/22 07:34 Adenovirus (PCR) Not Detected (NotDetected) 08/05/22 Unknown B. pertussis DNA (PCR) Not Detected (NotDetected) 08/05/22 Unknown B.parapertussis DNA PCR Not Detected (NotDetected) 08/05/22 Unknown C. pneumoniae DNA (PCR) Not Detected (NotDetected) 08/05/22 Unknown Coronavirus OC43 (PCR) Not Detected (NotDetected) 08/05/22 Unknown Coronavirus HKU1 (PCR) DETECTED (NotDetected) A* 08/05/22 Unknown Coronavirus 229E (PCR) Not Detected (NotDetected) 08/05/22 Unknown SARS-CoV-2 (PCR) Not Detected (NotDetected) 08/05/22 Unknown Coronavirus NL63 (PCR) Not Detected (NotDetected) 08/05/22 Unknown HIV-1 RNA copies/mL 168 Copies/mL H 08/05/22 07:34 HIV-1 RNA logcopies/mL 2.23 Log cps/mL H 08/05/22 07:34 Human Metapneumovir PCR Not Detected (NotDetected) 08/05/22 Unknown Influenza Type A (PCR) Not Detected (NotDetected) 08/05/22 Unknown Influenza Type B (PCR) Not Detected (NotDetected) 08/05/22 Unknown M. pneumoniae (PCR) Not Detected (NotDetected) 08/05/22 Unknown Parainfluenza 1 (PCR) Not Detected (NotDetected) 08/05/22 Unknown Parainfluenza 2 (PCR) Not Detected (NotDetected) 08/05/22 Unknown Parainfluenza 3 (PCR) DETECTED (NotDetected) A* 08/05/22 Unknown Parainfluenza 4 (PCR) Not Detected (NotDetected) 08/05/22 Unknown RSV (PCR) Not Detected (NotDetected) 08/05/22 Unknown Entero/Rhino (PCR) Not Detected (NotDetected) 08/05/22 Unknown SARS-CoV-2, RNA, NAAT NEGATIVE (NEGATIVE) 08/05/22 00:47 Blood Type O Positive 08/05/22 03:54 Antibody Screen NEGATIVE 08/05/22 03:[address] 08/04/22 21:15 CT chest diagnostic wo con CLINICAL HISTORY: h/o of sickle cell TECHNIQUE: Multidetector row helical CT of the chest was performed. Coronal and sagittal reformations were obtained. Automated dose lowering techniques and/or adjustment according to patient size were utilized for this exam. CT DOSE: 758.13 mGy.cm Comparison: Comparison is made to chest radiograph 07/11/2022 FINDINGS: Lungs and pleura: Bilateral tree in bud nodules are seen. No suspicious pulmonary nodules are seen. Heart and pericardium: Heart size is normal. No pericardial effusion. Vessels: Unremarkable. Mediastinum and shayy: Subcentimeter lymph nodes are seen. Chest wall and lower neck: Bilateral subpectoral breast implants are noted. Abdomen: Unremarkable. Bones: Unremarkable. IMPRESSION: Bilateral tree in bud nodules are seen which likely represent infectious/inflammatory changes. If there is clinical concern, 3 month follow up study can be performed to ensure resolution. No bony lesions are seen in this patient with history of sickle cell. ACT 112: Negative or not required by law. Electronically signed by: Dilshad Sanchez M.D. 08/05/2022 7:32 AM Abdomen/Pelvis CT 08/07/22 01:[address] WITHOUT CONTRAST CT DOSE: 1092.50 mGycm HISTORY: Acute upper GI bleed with generalized abdominal pain ugib, pain TECHNIQUE: Multiaxial CT images of the abdomen and pelvis were performed without contrast. A dose lowering technique was utilized adhering to the principles of ALARA. COMPARISON STUDY: Chest CT 08/04/2022 FINDINGS: Partially imaged breast implants. Subsegmental tree-in-bud nodules within the left lower lobe are redemonstrated, likely infectious or inflammatory. No pneumatosis or pneumoperitoneum. The unenhanced spleen, pancreas, gallbladder, adrenal glands and liver appear unremarkable. Unremarkable kidneys. No urolith or hydronephrosis. Unremarkable urinary bladder. Uterus appears surgically absent. No adnexal mass lesions identified. Aorta and IVC are unremarkable. No lymphadenopathy. Debris-filled stomach suggestive of recent meal with mixed attenuating material. No bowel obstruction or bowel wall thickening. Mild to moderate colonic fecal re tention. Surgical suture material adjacent to the cecum suggestive of appendectomy. Unremarkable soft tissues. 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 No acute fracture. IMPRESSION: 1. No acute intra-abdominal or intrapelvic abnormality identified. 2. No bowel obstruction or bowel wall thickening. 3. 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 4. Subsegmental tree-in-bud nodules of the left lower lobe are suggestive of a mild bronchiolitis. ACT 112: Negative or not required by law. The above report was generated using voice recognition software. It may contain grammatical, syntax or spelling errors. Electronically signed by: Mohinder Higgins M.D. 08/07/2022 7:18 AM Chest CTA 08/07/22 11:00 CT ANGIOGRAPHY OF THE CHEST, PULMONARY EMBOLUS PROTOCOL CLINICAL HISTORY: r/o PE/lovenox noncompliance/ho sickle cell dz COMPARISON STUDY: Chest CT August 04, 2022. TECHNIQUE: Following IV administration of 115 mL of Optiray, helical axial images of the chest were obtained utilizing the pulmonary embolus protocol. Maximal intensity projections and sagittal and coronal reformats were viewed on an independent 3D workstation. IV contrast was administered without complication. Automated exposure control was utilized for the study. A dose lowering technique was utilized adhering to the principles of ALARA. CT DOSE: 764.56 mGy.cm FINDINGS: No pulmonary emboli are identified although the segmental and subsegmental pulmonary arteries are suboptimally assessed due to suboptimal opacification. Cardiac size is at the upper limits of normal. There is no pericardial effusion. No thoracic aortic dissection. There is no thoracic lymphadenopathy. Bilateral breast implants are incidentally noted. There is no pneumothorax or pleural effusion. A small cluster of tree-in-bud nodules within the left lower lobe on axial image 72 of 256 has slightly decreased since CT of August 04, 2022. Minimal groundglass opacities with mosaic attenuation within the lungs is noted. This probably reflects atelectasis. No acute fractures are identified within the bony thorax. IMPRESSION: 1. No pulmonary emboli identified although segmental and subsegmental pulmonary arteries suboptimally assessed on this exam. 2. Small cluster tree-in-bud nodules within the left lower lobe, decreased since prior exam. This favors bronchiolitis. ACT 112: Negative or not required by law. Electronically signed by: Mateusz Beebe M.D. 08/07/2022 11:16 AM Venous Doppler Study 08/10/22 01:01 Exam(s): US VENOUS BILATERAL UPPER EXTREMITIES EXAM: US Duplex Bilateral Upper Extremities Veins CLINICAL HISTORY: Reason for exam: b /l arm pain. hx of dvt. rule out dvt. TECHNIQUE: Real-time duplex ultrasound scan of the bilateral upper extremity veins integrating B-mode two-dimensional vascular structure, Doppler spectral analysis, color flow Doppler imaging and compression. COMPARISON: No relevant prior studies available. FINDINGS: Limited evaluation. Per technologist notes, patient combative and uncooperative. Patient refused part of the exam. Right upper extremity: Internal jugular vein is compressible and patent. Subclavian vein appears patent. Cephalic vein at the confluence with the subclavian vein appears patent. Patient refused the rest of the exam. Left upper extremity: not evaluated, patient refused. IMPRESSION: Very limited evaluation as above. Partially visualized right upper extremity veins are patent. Electronically signed by: Connor Au M.D. 08/10/22 02:41 AM Carotid Doppler Study 08/11/22 10:47 US carotid doppler BI CLINICAL HISTORY: 37 years-old Female with VANN and left eye pain, blurry vision. Acute blurry vision with strokelike symptoms COMPARISON: Head CT of same day TECHNIQUE: Multiple real time sonographic images of the carotid bifurcations were obtained assessing mera scale, color Doppler and spectral wave form appearance FINDINGS: RIGHT CAROTID: The peak systolic velocity measured within the right ICA is 82 cm/sec. The end diastolic velocity measured 31 cm/sec. The ICA to CCA ratio measured 1.0 which correlates with a stenosis of 0-50%. LEFT CAROTID: The peak systolic velocity measured within the left ICA is 62 cm/sec. The end diastolic velocity measured 15 cm/sec. The ICA to CCA ratio measured 0.9 which correlates with a stenosis of 0-50%. There is normal antegrade vertebral flow bilaterally. IMPRESSION: 1. No hemodynamically significant stenosis or significant atherosclerotic plaquing. 2. Normal antegrade vertebral flow bilaterally. ACT 112: Negative or not required by law. The above report was generated using voice recognition software. It may contain grammatical, syntax or spelling errors. Electronically signed by: Mohinder Higgins M.D. 08/11/2022 4:[address] 08/13/22 18:30 CT head/brain wo con CLINICAL HISTORY: 37 years-old Female with follow up stroke -like symptoms. Acute strokelike symptoms TECHNIQUE: Multiple axial CT images of the head were obtained without contrast. A dose lowering technique was utilized adhering to the principles of ALARA. CT DOSE: 2110.86 mGy.cm COMPARISON: 08/11/2022 FINDINGS: Motion degraded exam. No acute intracranial hemorrhage, midline shift, intracranial mass, hydrocephalus, territorial ischemia or abnormal extra-axial collection. The calvarium is intact. Mild to moderate mucosal thickening of the paranasal sinuses. Mastoid air cells are clear. IMPRESSION: No acute intracranial abnormality. ACT 112: Negative or not required by law. The above report was generated using voice recognition software. It may contain grammatical, syntax or spelling errors. Electronically signed by: Mohinder Higgins M.D. 08/14/2022 11:[address] 08/14/22 10:40 CT lumbar spine wo con HISTORY: 37 years-old Female back pain acute low back pain without reported trauma COMPARISON: CT abdomen and pelvis 08/07/2022 TECHNIQUE: Multiple axial CT images of the lumbar spine were obtained without the use of IV contrast. A dose lowering technique was used consistent with the principals of ALARA. FINDINGS: Imaged intra-abdominal, intrapelvic and paraspinal tissues are unremarkable. Limited evaluation of the central canal and neural foramina by CT technique. There is suggestion of mild bilateral L4-L5 and L5-S1 neural foraminal stenosis. No significant degenerative changes, acute fracture, subluxation or endplate erosion. No marrow replacing process. Minimal lower lumbar facet arthrosis with tiny L5-S1 posterior disc osteophyte complex. IMPRESSION: No acute fracture or subluxation. ACT 112: Negative or not required by law. The above report was generated using voice recognition software. It may contain grammatical, syntax or spelling errors. Electronically signed by: Mohinder Higgins M.D. 08/14/2022 12:[address] 08/14/22 10:40 CT SCAN OF THE NECK WITHOUT IV CONTRAST CLINICAL HISTORY: Neck pain COMPARISON STUDY: No priors. TECHNIQUE: Unenhanced CT scan of the soft tissues of the neck was performed from the skull base to the upper chest. Images are reviewed in the axial, sagittal, and coronal planes. IV contrast was not administered as per the referring clinician. Note that the examination was performed in significantly suboptimal fashion without IV contrast. A dose lowering technique was utilized adhering to the principles of ALARA. FINDINGS: Pharynx: The unenhanced ventral soft tissues are grossly unremarkable. The pharyngeal airway is widely patent. The vocal cords are symmetric. The parapharyngeal fat is well maintained. The prevertebral/retropharyngeal soft tissues are within normal limits. The epiglottis is normal. Lymphadenopathy: No cervical lymphadenopathy is seen Thyroid: Normal in size and attenuation. Salivary glands: The parotid and submandibular glands are within normal limits. Brain parenchyma: The visualized brain parenchyma at the skull base is normal in appearance. Skeletal structures: Imaged portions of the calvarium at the skull base are within normal limits. The cervical spine appears intact. Sinuses and mastoids: There is moderate mucosal thickening within the right maxillary antrum. [id number] mucosal thickening is seen within the ethmoid sinuses, the sphenoid sinuses, and the left maxillary sinus. There is no air- fluid level within the left maxillary antrum. The mastoid air cells are well pneumatized. Orbits: The bony orbits are intact. Orbital contents are normal as visualized. Lung apices: Visualized apical lung parenchyma is clear. IMPRESSION: 1. No acute abnormality is identified on this unenhanced examination. 2. Paranasal sinus disease as above. ACT 112: Negative or not required by law. Electronically signed by: Connor Caceres M.D. 08/14/2022 11:50 AM Hospital Course (1) Chest pain: As per Prior hospitalist: Patient is a 37 yr transgender female [male to female, on hormonal treatment] with PMH of hypercoagulable state [factor V Leiden deficiency plus history of multiple PE and DVT, failed NOAC treatment] supposed to be on Lovenox SQ for anticoagulation [noncompliance], CVA, sickle cell anemia, HIV on medication, chronic pain, chronic anemia [baseline hemoglobin around 13 per patient] presented to the ED 08/04 w/ co worsening cough symptoms productive of junky sputum with blood streaks for the last few days [employer]. Possible sick contacts in the family. Patient vaccinated against COVID. Patient is a resident of [place], [place] here for a visit due to family reasons. Had cough symptoms with congestion and clear sputum 10 days ago [employer] and was evaluated in the ED 5 days ago at which point symptoms were attributed to bronchitis and sickle cell flare, chest x-ray was clear, patient was discharged home. Last attack was years ago as per patient. Acute Bronchitis Possible acute chest syndrome due to sickle cell was considered--ruled out as per prior hospitalist --CTA:No pulmonary emboli identified although segmental and subsegmental pulmonary arteries suboptimally assessed on this exam. Small cluster tree-in-bud nodules within the left lower lobe, decreased since prior exam. This favors bronchiolitis. -- Continue doxycycline Saturating well on room air H/O Sickle cell disease and sickle cell crisis Blood work does not appear to be sickle cell crisis as per hematology Normal bilirubin, failed normal reticulocyte count Patient refused further work-up per prior providers Continue hydroxyurea Patient refused to provide outpatient hematology information and also declined her prior pharmacy information to due to mind her outpatient opioid prescription, hydroxyurea, blood thinners as per hematology Pain improved but patient continues to demand IV pain medications but refuses further work-up Acute on chronic anemia: Multifactorial -sickle cell Vs suspected GI bleed Hb 12.9 No acute bleeding issues Monitor As per Prior Hospitalist: At admission pt was recommended transfer for tertiary care center ICU per oncall channel business manager which patient declined. Admitting vitals: 36.4 C, 112 bpm, RR 20, 133/92 mmHg, on RA but required 2 L O2 transiently few hours later. Admitting EKG with sinus tachycardia. Admitting labs: Hemoglobin 11.4, folate and vitamin B12 WNL, UA-no UTI, MRSA negative,toxicology screen-positive opiates [no opiate prescription noted in PDMP system/pt is resident of [place]]/follow final results,CD4 count:absolute count 119 (low), %CD4 7 (L), absolute lymphocytes 1724 (wnl) respiratory viral panel -coronavirus [not COVID-19 infection] and parainfluenza 3 virus positive. 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 Resume anticoagulation. H/O PE/DVT Noncompliance with anticoagulation as per records Failed NOAC treatment IV heparin transition to Lovenox SQ Appreciate hematology input Headache, Left eye pain DD: Migraine CT head: X 3:No acute intracranial abnormality. Carotid doppler:No hemodynamically significant stenosis or significant atherosclerotic plaquing. Normal antegrade vertebral flow bilaterally. CT Neck:No acute abnormality is identified on this unenhanced examination. Paranasal sinus disease as above. -- Cannot give triptans due to sickle cell disease --CGRP inhibitors would be safe but they are not formulary ( Ubrelvy 100 mg or Nurtec 75 mg pills daily for 3 days) -- Offered Depakote to 250 mg IV as recommended by neurology: Patient refused -- Could not get MRI as patient could not be sedated Advised to follow-up with neurology as outpatient As per Prior hospitalist: Neurology consulted, and discussed with Dr. Brenner in detail - this patient is having acute headache for a little over 24 hours now on the left side with features that are consistent with a migraine. She has no focal neurologic fi ndings, meningeal signs, or encephalopathy on exam. Neck is supple. There is no signs of increased intracranial pressure on ophthalmologic exam.I cannot entirely exclude a tiny stroke but small strokes typically do not give headaches MRI attempted twice, however unsuccessful, patient requires anesthesia Discussed with anesthesiologist, will schedule for Friday or Friday Headache medications - started on prednisone, may also give IV depakote 250 Situational hypertension: Secondary to acute illness BP better As per Prior hospitalist: Painless lower GI bleed: GI evaled, likely hemorrhoidal bleed, appreciate recs. Recs are - GI as OP and dicyclomine 10mg before meals. Episode of hematemesis - CT abdomen obtained and reviewed by GI - Suspect acid- peptic injury, related to prednisone, it possible that pt has gastroparesis, related to narcotic use, IV PPI, carafate, monitor H&H, NPO after MN. Pt ate overnight despite being npo. No more episodes of nausea or vomiting. 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 Discussed about anticoagulation need, wants to use heparin drip while in the hospital and then will go back on Lovenox on discharge as per patient. Patient has a plan to get herself started on warfarin, she is awaiting PT/INR machine at home. Restarted IV heparin as above (08/09/22)- now stopped. Received Loveox first dose (08/10/2022) CVA: Continue anticoagulation HIV: Continue home meds, patient requested to have somebody bring her HIV medication. Chronic pain: Continue home pain medications. DVT Px: lovenox SQ Code Status Full code Disposition Home Total Time Total Time Spent Total Time Spent (In Minutes): 67 minutes Discharge Plan Discharge Items Patient Disposition: Home - Self-Care Reason For Visit: HTN URG, CAP, HEMOPTYSIS Discharge Diagnosis: Acute Bronchitis H/O Sickle cell disease Possible Migraine H/O different thrombosis, pulmonary embolism Chronic Pain syndrome Activity: Per Instructions section Exercise/Sports: Wait until after follow-up appointment Non-emergency contact: Primary Care Provider, Field Appraiser, Neurologist a nd Oncologist Call non-emergency contact if: you have any medication questions, your symptoms worsen and you have a fever Follow-up/Referrals: PCP,NO [Primary Care Provider] - Diet: Regular Addtl Attending Provider Instructions: Follow-up with your primary care physician in 1 week as advised. Follow-up with your side sawyer Dr. Meehan for EGD, colonoscopy as outpatient Follow-up with your neurologist in 2-4 weeks if your headache persists Follow-up with your oncologist for management of sickle cell anemia. Seek immediate medical attention if your symptoms reoccur or worsen Please take all medications as instructed on discharge list below. Please call if you have any questions or problems. You can reach a [facility] hospitalist on duty at [facility] 24 hours a day by calling [phone] Pending Studies at Discharge: No Stand-Alone Forms: My [facility], Smoking Cessation Medications and DC Order Prescriptions: New doxycycline hyclate 100 mg Capsule 100 mg PO BID Qty: 6 0RF prednisone 20 mg Tablet 20 mg PO UD Qty: 7 0RF Rx Instructions: Take Prednisone 40mg daily for 2 days, then 20mg daily for 3 days and Stop magnesium oxide 400 mg (241.3 mg magnesium) Tablet 400 mg PO QAM Qty: 30 0RF pantoprazole 40 mg Tablet,Delayed Release (Dr/Ec) 40 mg PO BID Qty: 60 0RF enoxaparin [Lovenox] 150 mg/mL Syringe 135 mg subcut Q12H 30 Days Qty: 54 0RF Continued folic acid 1 mg Tablet 5 mg PO DAILY hydroxyurea 500 mg Capsule 500 mg PO BID spironolactone 100 mg Tablet 100 mg PO BID oxycodone 5 mg Tablet 5 mg PO Q4H PRN (Reason: Pain) oxycodone [OxyContin] 20 mg Tablet,Oral Only,Ext.Rel.12 Hr 20 mg PO Q12H PRN (Reason: Pain) Biktarvy 50-200-25 mg Tablet 1 tab PO DAILY Hormone Injections 1 dose [id number] Rx Instructions: due this week Discharge Orders: Discharge Order (Routine); Ordered 08/14/22 Ordered By: Scott Rodriguez Admission Data Admit Date/Time: 08/05/22 01:58 Attending Provider: Scott Rodriguez Admit Provider: Artemio Becerril Primary Care Provider: PCP,NO Other Providers: Artemio Becerril ; Gualberto Alatorre ; Samir Prieto ; Rosalie Camargo ; Wendi Patricio ; Monse Bhardwaj ; Hannah Guadalupe ; Leonel Thomas ; Augustin Esposito ; Katharina Souza ; Michelle Meehan ; Rehan Blum ; Carol Crystal ; Portia García ; Cassie Duncan ; Analia Hurtado ; Olivier Melara ; Lawson Lane ; Eric Ragsdale ; Carole Coley ; Johnson Andino Jr ; Selina Guzman ; Marcelo Brasher ; Sidra Peralta ; Sho Ring ; Sandip Brenner ; Ty Corona Other Interventions: Discharge Summary Assessment (RN) Last Done: 08/14/22 13:54
== END 2022-08-14 14:11 | disposition home or self-care (01) | DRG 202 ==
LOC: ED 20:50 → 2N 08-05 01:58 → SUATTDRO 08-05 01:58 → 2N 08-05 02:45 → 1E 08-05 05:38 → 2E 08-05 18:35 → 2S 08-10 16:06